=== PATIENT | female | born 1960 | race Caucasian/White ===

== ENCOUNTER 2018-05-17 14:33 | Observation (INO) ==
[2018-05-17] MEDS ORDERED: GLUCAGON FOR INJ 1 MG VIAL SQ PRN (16:22)
[2018-05-17] MEDS ORDERED: HYDROCODONE/ACETAMINOPHEN 10/325 TAB PO PRN (16:22)
[2018-05-17] MEDS ORDERED: CARBOHYDRATES FOR HYPOGLYCEMIA PO PRN (16:22)
[2018-05-17] MEDS ORDERED: DEXTROSE 50% 50 ML SYRINGE IV PRN (16:22)
[2018-05-17] MEDS ORDERED: ONDANSETRON INJ 2 MG/ML 2 ML VIAL IV PRN (16:22)
[2018-05-17] MEDS ORDERED: GLUCOSE 10 TABS/TUBE PO PRN (16:22)
[2018-05-17] MEDS ORDERED: GLUCOSE 40% GEL 15 GM TUBE PO PRN (16:22)
[2018-05-17] MEDS ORDERED: DOCUSATE SODIUM 100 MG CAP PO PRN (16:27)
--- NOTE | 2018-05-17 16:33 | History & Physical Report ---
Date of Service May 17, 2018 Assessment & Plan (1) Intractable pain: Patient with 1.5 weeks of severe dermatomal pain. Ddx to include neuritis, possibly from poorly controlled diabetes or recent trauma, shingles - patient with remote history of the same in this region. Shingles without emergence of a rash is possible, regional pain syndrome following recent trauma. -Observation to medical floor -Obtain basic labs - CBC, BMP, Mg, PO4 -Check MRI of the thoracic spine -Hydrocodone 10mg po q 6 hours PRN -Topical Lidocaine -Will treat with Valtrex 1gm po TID -Lyrica 75mg po BID -Consider pain management consultation if no improvement with the above interventions -PT/OT evaluation Present on Admission?: Yes (2) Diabetes: Patient with history of DM. She presently takes Glipizide. Reports high blood sugars recently -Check AIC -CC diet as tolerated -ISS for now, add basal insulin if poor control (3) Hypertension: Blood pressure mildly elevated at present, 152/94. -Pain control as above -Continue Lisinopril 2.5mg po daily -Continue to monitor Present on Admission?: Yes (4) GERD (gastroesophageal reflux disease): Chronic. Stable -Continue Omeprazole F/E/N - Heplock. Check labs and correct electrolytes if needed. CC diet as tolerated Ppx - Patient low risk for DVT, encourage ambulation Code - Full per discussion with patient Dispo -Observation to medical floor History of Present Illness Chief Complaint: Pain Primary Care Provider: NO PCP Patient is a 58yo female with history of HTN, HLP, DM, COPD presenting with pain on her left side that has been ongoing x 1.5 weeks. Pain is severe, constant, sharp and burning, 10/10, predominantly located on left side from her thoracic spine with dermatomal/bandlike distribution to her anterior abdomen. Pain does not cross the midline. Sometimes migrates to her shoulder as well. Also has "jags" of acute worsening that lasts 1-2 minutes. Pain involves her skin and between her ribs. Does not seem to be pleuritic or positional. Skin is exquisitely tender to palpation. Patient with history of shingles in that area approximately 15 years ago. Has never had recurrence. No neuropathic pain in that region before. She was seen at [facility] on 05/13/18 with complaint of sore skin x 6 days. She was diagnosed with neuritis/neuralgia, thought to be secondary to shingles. She was given a prescription for Valtrex, Prednisone and Percocet. She reports only taking those medications x 2 days as a rash never developed and Percocet did not relieve the pain. She had a CXR and CT of the chest performed during that hospital stay that were unrevealing for etiology of the pain. She took Morphine 600mg x 1 dose with no relief. She also took Hydrocodone/APAP which did provide some relief. There was some concern about possible pleural thickening and lesion on the CT which was considered as etiology for pain. Therefore she was sent to Dr. Ty for further evaluation. Upon review of the imaging and interview with the patient, Dr. Ty did not feel that the pleural lesion was the cause of her pain. She was sent to [facility] for direct admission for additional workup and treatment. Additional history: patient reports that three weeks ago she was cutting small trees on a band saw. A piece of a tree shot back from the saw and impacted her left anterior chest. She reports very little pain from that incident. No bruising or bleeding. Allergies Allergy/AdvReac Type Severity Reaction Status Date / Time Iodinated Contrast- Oral and AdvReac Mild VOMITING Verified 05/05/18 13:25 IV Dye Home Medications Home Medications Medication Instructions Recorded Confirmed Type conjugated estrogens [Premarin] 0.3 mg PO DAILY 05/05/18 05/05/18 History glipizide 10 mg PO DAILY 05/05/18 05/05/18 History lisinopril 2.5 mg PO DAILY 05/05/18 05/05/18 History omeprazole 20 mg PO DAILY 05/05/18 05/05/18 History venlafaxine 37.5 mg PO DAILY 05/05/18 05/05/18 History Past Med/Surg History Medical History Hyperlipidemia Hypertension Diabetes (Chronic) Surgical History H/O shoulder surgery History of arthroplasty of left knee S/P hysterectomy Family History Other Family history non-contributory Social History Preferred Language: Bulgarian Communication Ability: Effective 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 Beliefs That Will Affect Care: None Current Living Situation: Significant Other 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al status: employed 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: [employer] at [employer] Other Information That Helps Us Care for You: No Feels Safe at Home: Yes Safety Concerns: Feels Safe At This Time Smoking Status: Current every day smoker Hx Alcohol Use: No Hx Substance Use: No Review of Systems All systems reviewed & are unremarkable except as noted in HPI & below Patient reports nausea and constipation Patient reports occasional tinnitus and ear fullness Physical Exam Vital Signs (Past 24 Hours): Last Vital Signs Temp 36.7 C 05/17/18 15:30 Pulse 89 05/17/18 15:30 Resp 16 05/17/18 15:30 BP 152/94 H 05/17/18 15:30 Pulse Ox 96 05/17/18 15:30 Physical Exam: General: patient resting, in mild distress secondary to pain, non-toxic in appearance, AA&O x 4 Skin: warm, dry, intact, no rashes or lesions. No redness, warmth, diaphoresis, discoloration HEENT: NC/AT, PERRL, EOMI, anicteric sclera, conjunctiva without injection, external ear normal to inspection and nontender, nares patent, moist mucus membranes, dentition intact, no oropharyngeal lesions, neck supple, trachea midline, no LAD, no thyromegaly, no JVD Heart: +S1/S2, regular, S2 splitting appreciated on respiration, no m/r/g Lungs: equal air entry bilaterally, no rales/rhonchi/wheezes Abd: +BS, soft, NT/ND, no masses/organomegaly/ascites Ext: warm, 2+ pulses in UE/LE bilaterally, no clubbing/cyanosis or edema Neuro: nonfocal, patient AA&O x 4, speech intact, no facial droop, moving all extremities on command with equal strength 5/5, severe pain with palpation of the skin of her left abdomen, flank and thoracic back. 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
[2018-05-17 17:00] LABS: Basophils # (auto) 0.03 K/uL (0-0.2); Basophils % (auto) 0.6 %; Eosinophils # (auto) 0.11 K/uL (0-0.5); Hemoglobin 14.7 g/dL (12.0-16.0); Immature Granulocytes # (auto) 0.02 K/uL (0.00-0.02); Immature Granulocytes % (auto) 0.4 %; Lymphocytes # (auto) 2.06 K/uL (1.2-3.4); Lymphocytes % (auto) 37.8 %; Mean Corpuscular Volume 87.9 fL (80-100); Mean Platelet Volume 10.8 fL (7.4-10.4); Monocytes % (auto) 7.3 %; Neutrophils # (auto) 2.83 K/uL (1.4-6.5); Neutrophils % (auto) 51.9 %; Platelet Count 215 K/uL (130-400); RDW Coefficient of Variation 12.9 % (11.5-14.5); RDW Standard Deviation 41.6 fL (36.4-46.3); Red Blood Count 4.78 M/uL (4.2-5.4); White Blood Count 5.45 K/uL (4.8-10.8)
[2018-05-17] MEDS: HYDROCODONE/ACETAMINOPHEN 10/325 TAB PO PRN (17:23)
[2018-05-17 17:51] LABS: Albumin Level 3.5 gm/dl (3.4-5.0); BUN Creatinine Ratio 19.6 (10-20); Bilirubin,Total 0.2 mg/dl (0.2-1); Calcium 8.6 mg/dl (8.5-10.1); Creatinine Clr Calc Pharmacy 73.2 ml/min; Est GFR (African American) 90.1; Est GFR (Non-African American) 77.8; Potassium 4.1 mmol/L (3.5-5.1); Total Protein 6.8 gm/dl (6.4-8.2)
[2018-05-17] MEDS: LIDOCAINE 5% 1 PATCH TD SCH (18:18)
[2018-05-17] MEDS: INSULIN ASPART 100 UNITS/ML 3 ML PEN SC SCH ×3 (20:03→21:41)
--- NOTE | 2018-05-17 20:09 | Magnetic Resonance Report ---
THORACIC SPINE MRI HISTORY: Left-sided back pain. neuropathic pain TECHNIQUE: Multiplanar multisequence MRI of the thoracic spine was performed without the use of contr ast. COMPARISON: None. FINDINGS: No fracture or subluxation. Paraspinal soft tissues are within normal limits. No abnormal epidural or paraspinal fluid collections. Mild disc space narrowing within the mid to lower thoracic spine with a few scattered tiny focal disc protrusions from the T5-T10 levels. However, no significant central c anal or neural foraminal narrowing. The thoracic spinal cord is normal in course, caliber, and signal intensity. IMPRESSION: 1. Mild degenerative disc disease with a few scattered tiny focal disc protrusions from T5 through T1 0. However, no significant central canal or neural foraminal narrowing. 2. Normal thoracic spinal cord. 3. No fracture or subluxation. Electronically signed by: Angel Martinez M.D. 05/17/2018 8:07 PM
[2018-05-17] MEDS ORDERED: MoRPHine SULFATE 2 MG/ML CARP IV STA (20:46)
[2018-05-17] MEDS: PREGABALIN 75 MG CAP PO SCH (21:15)
[2018-05-17] MEDS: VALACYCLOVIR HCL 500 MG TABLET PO SCH (21:15)
[2018-05-18] MEDS: HYDROCODONE/ACETAMINOPHEN 10/325 TAB PO PRN ×3 (00:09→12:12)
[2018-05-18] MEDS ORDERED: KETOROLAC 30 MG/ML VIAL IV ONE (01:13)
[2018-05-18] MEDS ORDERED: KETOROLAC 30 MG/ML VIAL ONE (01:24)
[2018-05-18] MEDS: VALACYCLOVIR HCL 500 MG TABLET PO SCH ×2 (07:35→09:15)
[2018-05-18] MEDS: LIDOCAINE 5% 1 PATCH TD SCH ×2 (07:35→09:16)
[2018-05-18] MEDS: KETOROLAC 30 MG/ML VIAL IV PRN ×2 (07:39→15:48)
[2018-05-18 07:42] LABS: Estimated Average Glucose 286 mg/dl; Hemoglobin A1C 11.6 % (4.5-5.6)
[2018-05-18] MEDS ORDERED: VENLAFAXINE HCL XR 37.5 MG CAPXR PO SCH (09:00)
[2018-05-18] MEDS ORDERED: ESTROGENS, CONJUGATED 0.3 MG TAB PO SCH (09:00)
[2018-05-18] MEDS ORDERED: LISINOPRIL 2.5 MG TAB PO SCH (09:00)
[2018-05-18] MEDS ORDERED: PANTOprazole 40 MG TAB PO SCH (09:00)
[2018-05-18] MEDS: PREGABALIN 75 MG CAP PO SCH ×2 (09:03→13:03)
[2018-05-18] MEDS: INSULIN ASPART 100 UNITS/ML 3 ML PEN SC SCH (09:07)
[2018-05-18] MEDS ORDERED: GLUCOSE 40% GEL 15 GM TUBE PO PRN (09:28)
[2018-05-18] MEDS ORDERED: DEXTROSE 50% 50 ML SYRINGE IV PRN (09:28)
[2018-05-18] MEDS ORDERED: GLUCAGON FOR INJ 1 MG VIAL SQ PRN (09:28)
[2018-05-18] MEDS ORDERED: GLUCOSE 10 TABS/TUBE PO PRN (09:28)
[2018-05-18] MEDS ORDERED: CARBOHYDRATES FOR HYPOGLYCEMIA PO PRN (09:28)
[2018-05-18] MEDS ORDERED: INSULIN GLARGINE SOLOSTAR 100 UNITS/ML 3 ML PEN SC SCH (09:30)
[2018-05-18] MEDS ORDERED: INSULIN ASPART 100 UNITS/ML 3 ML PEN SC SCH (11:30)
[2018-05-18] MEDS ORDERED: Nursing to Pharmacy Communication ONE (15:26)
--- NOTE | 2018-05-18 17:23 | Discharge Summary ---
Date of Service May 18, 2018 Admission HPI Per Admitting Provider Patient is a 58yo female with history of HTN, HLP, DM, COPD presenting with pain on her left side that has been ongoing x 1.5 weeks. Pain is severe, constant, sharp and burning, 10/10, predominantly located on left side from her thoracic spine with dermatomal/bandlike distribution to her anterior abdomen. Pain does not cross the midline. Sometimes migrates to her shoulder as well. Also has "jags" of acute worsening that lasts 1-2 minutes. Pain involves her skin and between her ribs. Does not seem to be pleuritic or positional. Skin is exquisitely tender to palpation. Patient with history of shingles in that area approximately 15 years ago. Has never had recurrence. No neuropathic pain in that region before. She was seen at [facility] on 05/13/18 with complaint of sore skin x 6 days. She was diagnosed with neuritis/neuralgia, thought to be secondary to shingles. She was given a prescription for Valtrex, Prednisone and Percocet. She reports only taking those medications x 2 days as a rash never developed and Percocet did not relieve the pain. She had a CXR and CT of the chest performed during that hospital stay that were unrevealing for etiology of the pain. She took Morphine x 1 dose with no relief. She also took Hydrocodone/APAP which did provide some relief. There was some concern about possible pleural thickening and lesion on the CT which was considered as e tiology for pain. Therefore she was sent to Dr. Ty for further evaluation. Upon review of the imaging and interview with the patient, Dr. Ty did not feel that the pleural lesion was the cause of her pain. She was sent to [facility] for direct admission for additional workup and treatment. Additional history: patient reports that three weeks ago she was cutting small trees on a band saw. A piece of a tree shot back from the saw and impacted her left anterior chest. She reports very little pain from that incident. No bruising or bleeding. 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 Discharge Exam Constitutional WD/WN, vitals as above Eyes PERRL, conjunctivae normal, anicteric sclerae ENMT external ear and nose normal, oropharynx normal Neck trachea midline, no thyromegaly Respiratory normal respiratory effort, lungs clear to auscultation Cardiovascular RRR, no murmur, no edema Gastrointestinal (Abdomen) normal bowel sounds, soft, nontender, no hepatosplenomegaly Musculoskeletal Spine: thoracic spine normal to inspection (+TTP over left sided rib cage in dermatomal fashion around T8-9) Extremities: extremities normal to inspection; no cyanosis and no clubbing Skin no rashes, warm and dry Neurologic moves all extremities and awake; no focal motor deficits Psychiatric A+Ox3, euthymic affect Discharge Data Allergies Allergy/AdvReac Type Severity Reaction Status Date / Time pregabalin [From Lyrica] Allergy Intermediate Agitated Verified 05/18/18 17:22 Iodinated Contrast- Oral and AdvReac Mild VOMITING Verified 05/05/18 13:25 IV Dye Consultations None Ordered Studies 05/17/18 16:22 MR thoracic spine wo con Routine : THORACIC SPINE MRI HISTORY: Left-sided back pain. neuropathic pain TECHNIQUE: Multiplanar multisequence MRI of the thoracic spine was performed without the use of contrast. COMPARISON: None. FINDINGS: No fracture or subluxation. Paraspinal soft tissues are within normal limits. No abnormal epidural or paraspinal fluid collections. Mild disc space narrowing within the mid to lower thoracic spine with a few scattered tiny focal disc protrusions from the T5-T10 levels. However, no significant central canal or neural foraminal narrowing. The thoracic spinal cord is normal in course, caliber, and signal intensity. IMPRESSION: 1. Mild degenerative disc disease with a few scattered tiny focal disc p rotrusions from T5 through T10. However, no significant central canal or neural foraminal narrowing. 2. Normal thoracic spinal cord. 3. No fracture or subluxation. Hospital Course (1) Intractable pain: Patient with 1.5 weeks of severe dermatomal pain left thoracic. Ddx to include neuritis, possibly from poorly controlled diabetes or recent trauma, shingles - patient with remote history of the same in this region. Shingles without emergence of a rash is possible, regional pain syndrome following recent trauma. Labs all normal. MRI Thoracic Spine without explanation of cause of pain, mild degenerative changes. Nonfocal neuro exam but with tenderness exquisitely in left thoracic dermatomal pattern around T8-9. Pt was treated with IV toradol and hydrocodone with some relief. A trial of Lyrica was attempted and pt described having severe agitation, moodiness, and felt like her "veins were burning." Therefore Lyrica was discontinued. She decribes a similar reaction to gabapentin in the past as well. Pt was stable for discharge on hydrocodone. Recommend she keep her already made appointment with Neuro fo rthis coming Wednesday and obtain possible referral to Pain Management if not improving. -gave Rx for hydrocodone prn -can take ibuprofen prn as well -no Valtrex continued as she is outside of the window of benefit at this point and was quite opposed to taking most medications for fear of side effects (2) Diabetes: Patient with history of DM. She presently takes Glipizide only at home. Severely uncontrolled with HgbA1C here of 11.6% Had severe hyperglycemia here with glucose readings consistently in the 200s- 300s. She refused to take insulin. States she is committed to following a low carb diet after discharge. She also was recently prescribed a GLP-1 agonist (she is unsure which one but described a once weekly injection) by her PCP but has not yet started it--> plans to start as soon as she goes home (3) Hypertension: Blood pressure mildly elevated here, secondary to pain perhaps -Pain control as above -Continue Lisinopril 2.5mg po daily -Continue to monitor (4) GERD (gastroesophageal reflux disease): Chronic. Stable -Continue Omeprazole Dispo-stable for dc to home with close f/u with PCP, Neuro Total Time Total Time Spent Total Time Spent (In Minutes): >30 min Total Time Includes: Examination of the Patient, Discharge Planning and Medication Reconciliation Discharge Plan Discharge Items Patient Disposition: Home - Self-Care Reason For Visit: INTRACTABLE PAIN Discharge Diagnosis: Post-herpetic neuralgia Condition: Fair Discharge Goals: Decrease discomfort and Therapeutic intervention Activity: Resume your previous activity Lifting: Gradually increase as tolerated Bathing: No limitations Exercise/Sports: Gradually increase as tolerated Non-emergency contact: Primary Care Provider Call non-emergency contact if: you have any medication questions, your symptoms worsen, your pain is not controlled, your pain is worsening, your pain is unusua l for you, your pain is concerning for you, you have a fever and your temperature is above 101 Follow-up/Referrals: Peter Angulo DO [Primary Care Provider] - 05/24/18 9:00 am (Please, follow up at Dr. Angulo's office on WednesdayMay 24 at 9:00 am. *If you need to change this appointment, call the office at [phone].) Diet: Carb Consistent or DM2 Addtl Provider Instructions: You were admitted for intractable pain which is likely due to nerve pain either from shingles (rash is not necessarily always present) or nerve damage from your recent injury. You were prescribed pain medicine to take. It is recommended that you keep your appointment with the Neurologist for this Wednesday. You may also want to see a Lacquer Polisher-their contact information is as above. Please start taking your new diabetes medication as prescribed by your doctor as your blood sugars are very high. Prescriptions: New hydrocodone-acetaminophen 5-325 mg tablet 1 tab PO Q4H PRN (Reason: pain) Qty: 20 RF: 0 ibuprofen 200 mg tablet 800 mg PO Q8H PRN (Reason: fever or pain) Qty: 30 RF: 0 hydrocodone-acetaminophen 5-325 mg tablet 2 tab PO Q6 PRN (Reason: pain) Qty: 30 RF: 0 Continued venlafaxine 37.5 mg Capsule,Extended Release 24hr 37.5 mg PO DAILY RF: 0 glipizide 10 mg tablet extended release 24hr 10 mg PO DAILY RF: 0 omeprazole 20 mg capsule,delayed release(DR/EC) 20 mg PO DAILY RF: 0 lisinopril 2.5 mg tablet 2.5 mg PO DAILY RF: 0 Premarin 0.3 mg tablet 0.3 mg PO DAILY RF: 0 Stand-Alone Forms: [facility] Discharge Orders: Discharge Order (Routine); Ordered 05/18/18 Ordered By: Kayy Britt Admission Data Admit Date/Time: 05/17/18 14:45 Attending Provider: Kayy Britt Admit Provider: Cecille Velazquez Primary Care Provider: Peter Angulo Service: Medical Other Interventions: Discharge Summary Assessment (RN) Last Done: 05/18/18 17:32 Pending Studies at Discharge: No DC Date/Time DO NOT enter until pt leaves facility: 05/18/18 18:30
--- NOTE | 2018-05-20 13:21 | Communication Note ---
Date of Service: May 20, 2018 Pt called in and spoke to RN on the 4th floor, stating she ran out of hydrocodone and PCP would not fill meds without seeing her. Not sure why PCP could not see her in the office. I agreed to refill her hydrocodone to bridge her until her follow up appointment with her PCP . #30 of the hydrocodone/APAP 5/325g tabs written
== END 2018-05-18 18:30 | disposition home or self-care (01) ==
LOC: 4E → SUATTDRO 14:45

== ENCOUNTER 2018-06-24 21:26 | Inpatient (IN) ==
[2018-06-24] MEDS ORDERED: SODIUM CHLORIDE 0.9% 1000ML 2,000 ML IV SCH (22:00)
[2018-06-24] MEDS ORDERED: GI COCKTAIL ED USE PO ONE (22:27)
[2018-06-24] MEDS ORDERED: PROCHLORPERAZINE 2 ML IV ONE (22:27)
[2018-06-24] MEDS ORDERED: FAMOTIDINE 20 MG TAB PO ONE (22:27)
[2018-06-24 22:31] LABS: Basophils # (auto) 0.01 K/uL (0-0.2); Basophils % (auto) 0.1 %; Eosinophils # (auto) 0.59 K/uL (0-0.5); Hematocrit (blood only) 45.3 % (37-47); Hemoglobin 16.1 g/dL (12.0-16.0); Immature Granulocytes # (auto) 0.03 K/uL (0.00-0.02); Immature Granulocytes % (auto) 0.3 %; Lymphocytes # (auto) 1.14 K/uL (1.2-3.4); Lymphocytes % (auto) 9.7 %; Mean Corpuscular Hgb Conc 35.5 g/dL (32-36); Mean Corpuscular Volume 86.8 fL (80-100); Mean Platelet Volume 10.9 fL (7.4-10.4); Monocytes # (auto) 0.59 K/uL (0.11-0.59); Neutrophils # (auto) 9.41 K/uL (1.4-6.5); Neutrophils % (auto) 79.9 %; Platelet Count 212 K/uL (130-400); RDW Coefficient of Variation 13.2 % (11.5-14.5); RDW Standard Deviation 42.1 fL (36.4-46.3); Red Blood Count 5.22 M/uL (4.2-5.4); White Blood Count 11.77 K/uL (4.8-10.8)
--- NOTE | 2018-06-24 22:37 | XRay Report ---
SINGLE VIEW CHEST CLINICAL HISTORY: Atypical chest pain. FINDINGS: An AP, portable, upright chest radiograph is compared to study dated 05/05/2018. The cardiom ediastinal silhouette is unremarkable. There is mild bibasilar atelectasis. The lungs and pleural spa selvin are otherwise clear. No pneumothorax is seen. The skeletal structures are osteopenic. The bony th orax is grossly intact. IMPRESSION: No active disease in the chest. Electronically signed by: Thong Veronica M.D. 06/24/2018 10:35 PM
[2018-06-24 22:52] LABS: Alanine Aminotransferase 27 U/L (12-78); Albumin Level 3.7 gm/dl (3.4-5.0); Aspartate Aminotransferase 11 U/L (15-37); BUN Creatinine Ratio 23.7 (10-20); Blood Urea Nitrogen 16 mg/dl (7-18); Carbon Dioxide 21 mmol/L (21-32); Chloride 106 mmol/L (98-107); Creatinine Clr Calc Pharmacy 89.1 ml/min; Est GFR (African American) 111.3; Glucose 230 mg/dl (70-99); Magnesium 1.6 mg/dl (1.8-2.4); Potassium 3.6 mmol/L (3.5-5.1); Sodium 138 mmol/L (136-145)
[2018-06-24 22:57] LABS: Albumin Globulin Ratio 1.2 (0.9-2); Alkaline Phosphatase 76 U/L (45-117); Bilirubin,Total 0.6 mg/dl (0.2-1); Globulin 3.1 gm/dl (2.5-4.0); Phosphorus 3.4 mg/dl (2.5-4.9); Total Protein 6.8 gm/dl (6.4-8.2); Troponin I < 0.015 ng/ml (0-0.045)
[2018-06-24] MEDS ORDERED: IOVERSOL 100ml IV PRN (23:19)
--- NOTE | 2018-06-24 23:42 | CT Scan Report ---
CT SCAN OF THE ABDOMEN AND PELVIS WITH IV CONTRAST CLINICAL HISTORY: Upper abdominal pain. COMPARISON STUDY: Abdominal CT dated 09/27/2014 and 07/13/2011. TECHNIQUE: Following the IV administration of 94 cc of Optiray 320, CT scan of the abdomen and pelvi s is performed from the lung bases to the proximal femora. Images are reviewed in the axial, sagittal , and coronal planes. IV contrast was administered without complication. A dose lowering technique wa s utilized adhering to the principles of ALARA. The examination is modestly degraded by motion artifa ct. CT DOSE: 395.54 mGy.cm FINDINGS: Lung bases: The heart is top normal in size and without pericardial effusion. A 7 mm focus of nodular ity at the left lung base on image #67 is unchanged dating back to 2011 and of doubtful significance. There is bibasilar atelectasis. No airspace consolidation or pleural effusion is identified. Liver: The contrast-enhanced liver is enlarged, measuring 21 cm in length. The liver demonstrates dif fusely diminished attenuation consistent with hepatic steatosis. Fatty sparing is seen adjacent to ga llbladder fossa There is no intrahepatic biliary ductal dilatation. The hepatic veins and portal vein s are patent. Gallbladder: Unremarkable. Spleen: Normal in size and attenuation. Pancreas: There is mild glandular atrophy of the pancreas. Inflammatory stranding is seen between the pancreatic head and the adjacent duodenum. The gland enhances homogeneously. The duct is normal in c aliber. Adrenal glands: Unremarkable. Kidneys: The contrast enhanced kidneys are normal in size and without hydronephrosis. The kidneys enh ance symmetrically. Abdominal vasculature: The abdominal aorta is normal in course and caliber noting moderate atheroscle rotic calcification. The superior mesenteric artery and the celiac artery are patent. Bowel: There are least 2 duodenal diverticula. There is significant duodenal wall thickening with rm rounding inflammation. This is greatest around the third and fourth portions of the duodenum. There i s also wall thickening with significant surrounding inflammatory stranding seen involving loops of pr oximal jejunum in the upper to mid abdomen. There is no high-grade bowel obstruction. The proximal sm all bowel loops are mildly distended measuring up to 3.3 cm. Trace interloop fluid is noted. There is mild colonic diverticulosis without CT evidence of acute diverticulitis. There is no pneumatosis int estinalis or portal venous gas. The appendix is well-visualized and normal. Peritoneum: There is no intraperitoneal free air. A small volume of free fluid is noted in the pelvis . Lymphadenopathy: None. Pelvic viscera: The bladder is normal as visualized. The uterus is surgically absent. No adnexal lesi on is seen. Skeletal structures: The skeletal structures are osteopenic. Mild lumbosacral spondylosis is observed . No lytic or blastic lesions are seen. IMPRESSION: 1. There is significant duodenal wall thickening with surrounding inflammation. Additionally, there i s wall thickening with surrounding inflammation seen involving the majority of the jejunum. The appea cedric is most consistent with a nonspecific duodenitis/enteritis. 2. There is inflammatory stranding seen between the pancreatic head and the duodenum. This is likely related to adjacent duodenitis. Pancreatitis is considered less likely. Correlation with serum amylas e/lipase levels is recommended. 3. There is no pneumatosis intestinalis, portal venous gas, or intraperitoneal free air. 4. Trace interloop fluid is seen around the inflamed small bowel loops, and there is a small volume f ree fluid in the cul-de-sac. This is likely reactive. 5. There is no high-grade bowel obstruction. The proximal small bowel is mildly distended, likely rep resenting ileus. Clinical correlation will be required. 6. Hepatomegaly and hepatic steatosis. 7. Colonic diverticulosis without CT evidence of acute diverticulitis. 8. Additional findings as above. Electronically signed by: Thong Veronica M.D. 06/24/2018 11:39 PM
[2018-06-24] MEDS ORDERED: MAGNESIUM SULFATE / D5W 1 GM/100 ML BAG IV ONE (23:43)
[2018-06-25 00:04] LABS: Appearance Urine Clear (Clear); Bilirubin Urine Negative (Negative); Blood Urine Negative (Negative); Color Urine Yellow; Glucose Urine UA Trace (Negative); Ketones Urine Trace (Negative); Leukocyte Esterase Urine Negative (Negative); Nitrite Urine Negative (Negative); Protein Urine Negative (Negative); Specific Gravity Urine 1.034 (1.000-1.030); Urobilinogen Urine Negative (Negative)
[2018-06-25] MEDS ORDERED: SUCRALFATE 1 GM/10 ML UDC PO STA (00:20)
[2018-06-25] MEDS ORDERED: ONDANSETRON INJ 2 MG/ML 2 ML VIAL IV STA (00:32)
--- NOTE | 2018-06-25 01:05 | Emergency Department Note ---
Entered by Juan Cook acting as a scribe for Mook Regan MD History of Present Illness General Chief complaint: Abdominal Pain Stated complaint: AB PAIN Time Seen by Provider: 06/24/18 21:58 Source: patient History of Present Illness Onset (ago): week(s) (couple) Location: abdomen Pain Consistency: + other (worsening) Maximum Pain Intensity: 5 Relieved By: + none Associated symptoms: + denies other symptoms (bloody vomit), + nausea/vomiting (negative nausea, positive vomiting) and + other (black vomit, diarrhea, and a bad taste in mouth) The patient is a 58 year old F who presents to the Emergency Room with complaints of worsening abdominal pain that started a couple of months ago. She states that a couple of months ago she experienced abdominal trauma. She notes that she was sawing a log which ended up hitting her stomach. She states that she saw her doctor for her pain who told her that she had shingles. She adds that she was put on hydrocodone for her shingles. She notes that last week on she went to urgent care because her symptoms were getting worse. She states that she was told that she had an impaction after an X-ray and was put on Miralax. She notes that she is currently experiencing black vomit, diarrhea, and a bad taste in her mouth. She denies currently having nausea and bloody vomit. She states that she does not have a history of pancreatitis or any abdominal surgeries. She adds that she smokes 5 cigarettes a day. Home Medications Home Medications Medication Instructions Recorded Confirmed Type Premarin 0.3 mg PO DAILY 05/05/18 06/25/18 History glipizide 10 mg PO DAILY 05/05/18 06/25/18 History lisinopril 2.5 mg PO DAILY 05/05/18 06/25/18 History omeprazole 20 mg PO DAILY 05/05/18 06/25/18 History amitriptyline 10 mg PO HS 06/25/18 06/25/18 History ondansetron HCl 4 mg PO Q8 PRN 06/25/18 06/25/18 History semaglutide [Ozempic] 0.25 mg SUBCUT WK 06/25/18 06/25/18 History venlafaxine 75 mg PO DAILY 06/25/18 06/25/18 History Allergies Allergy/AdvReac Type Severity Reaction Status Date / Time pregabalin [From Lyrica] Allergy Intermediate Agitated Verified 06/25/18 01:56 Iodinated Contrast- Oral and AdvReac Mild VOMITING Verified 06/25/18 01:56 IV Dye Past Med/Surg History Medical History Diabetes (Chronic) Hyperlipidemia Hypertension Surgical History H/O shoulder surgery History of arthroplasty of left knee S/P hysterectomy Family History Other Family history non-contributory Social History Preferred Language: Tanzanian Communication Ability: Effective 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: No Beliefs That Will Affect Care: None Current Living Situation: Significant Other 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al status: employed 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 and A total of 10 systems reviewed and were otherwise negative Physical Exam Vital Signs Vital Signs - 24 hr 06/24/18 21:33 06/24/18 22:44 06/24/18 23:51 Temperature 36.7 C Temperature Source Oral Sepsis Recent Fever Within 48 Hours No Sepsis Action Taken by Nursing No Action Required Pulse Rate 115 H Pulse Rate [Right Finger] 96 H 76 Pulse Rhythm [Right Finger] Regular Pulse Strength [Right Finger] Normal Respiratory Rate 20 17 16 Respiratory Effort / Characteristics Non-Labored Spontaneous Non-Labored Spontaneous Non-Labored Respiratory Depth Normal Normal Normal Respiratory Pattern Regular Regular Regular Blood Pressure 130/95 Blood Pressure [Right Arm] 125/78 150/95 H Blood Pressure Mean 106 Blood Pressure Mean [Right Arm] 93 113 Blood Pressure Position Sitting Blood Pressure Position [Right Arm] Lying Pulse Oximetry 96 95 95 Oxygen Delivery Method Room Air Room Air Room Air 06/25/18 01:00 06/25/18 02:00 06/25/18 03:43 Temperature Temperature Source Sepsis Recent Fever Within 48 Hours Sepsis Action Taken by Nursing Pulse Rate 95 H Pulse Rate [Right Finger] 93 H 96 H Pulse Rhythm [Right Finger] Regular Regular Pulse Strength [Right Finger] Normal Normal Respiratory Rate 18 16 18 Respiratory Effort / Characteristics Non-Labored Non-Labored Respiratory Depth Normal Normal Respiratory Pattern Regular Regular Blood Pressure 132/90 Blood Pressure [Right Arm] 161/93 H 137/90 Blood Pressure Mean Blood Pressure Mean [Right Arm] 115 105 Blood Pressure Position Blood Pressure Position [Right Arm] Lying Lying Pulse Oximetry 95 95 95 Oxygen Delivery Method Room Air Room Air Room Air 06/25/18 04:15 Temperature 36.9 C Temperature Source Oral Sepsis Recent Fever Within 48 Hours Sepsis Action Taken by Nursing Pulse Rate Pulse Rate [Right Finger] 97 H Pulse Rhythm [Right Finger] Pulse Strength [Right Finger] Respiratory Rate 16 Respiratory Effort / Characteristics Respiratory Depth Respiratory Pattern Blood Pressure Blood Pressure [Right Arm] 127/86 Blood Pressure Mean Blood Pressure Mean [Right Arm] 99 Blood Pressure Position Blood Pressure Position [Right Arm] Pulse Oximetry 95 Oxygen Delivery Method Room Air GENERAL: Awake, alert, uncomfortable appearing HENT: Normocephalic, atraumatic. TM's normal. Oropharynx with dry mucous membranes and otherwise unremarkable. EYES: PERRL. EOMI. Normal conjunctiva. Sclera non-icteric. NECK: Supple. No nuchal rigidity. FROM. No JVD or bruit. RESPIRATORY: CTA CARDIAC: RRR. No murmur. ABDOMEN: Soft, non distended. Mild epigastric tenderness to palpation.. No rebound or guarding. No masses. RECTAL: Deferred. MUSCULOSKELETAL: Unremarkable. No edema. No discoloration. Gross motor strength symmetric. NEURO: Normal sensorium. No sensory or motor deficits noted. SKIN: No rash or jaundice noted. LYMPH: No adenopathy Course 2211: The patient was evaluated in room C11B. A complete history and physical exam was performed. 2239: I am checking on the patient's allergy. 0020: I am waiting to see how the patient does with Carafate. 0144: I reviewed the patient's case with Dr. Jordy Issa, [facility] Hospitalist. He will evaluate the patient for further management. Consultations Consultation #1: I reviewed the patient's case with Dr. Jordy Issa, [facility] Hospitalist. He will evaluate the patient for further management. Time: 01:44 Administered Medications Sodium Chloride (Nss 1000ml) 1,000 mls @ 125 mls/hr IV .Q8H [place] Stop: 07/25/18 04:12 Last Admin: 06/25/18 04:29 Dose: 125 mls/hr Documented by: [id number] Discontinued Medications Al Hydrox/Mg Hydrox/Simethicone () 1 dose PO ONE ONE Stop: 06/24/18 22:28 Last Admin: 06/24/18 22:39 Dose: 1 dose Documented by: [id number] Famotidine (Pepcid) 20 mg PO NOW ONE Stop: 06/24/18 22:28 Last Admin: 06/24/18 22:39 Dose: 20 mg Documented by: [id number] Sodium Chloride (Nss 1000ml) 2,000 mls @ 999 mls/hr IV .Q2H1M [place] Stop: 06/25/18 00:00 Last Infusion: 06/25/18 01:16 Dose: 0 mls/hr Documented by: [id number] Infusion: 06/25/18 01:16 Dose: 0 mls/hr Documented by: [id number] Admin: 06/24/18 22:37 Dose: 999 mls/hr Documented by: [id number] Prochlorperazine (Compazine) 2 mls @ 1 mls/min IV ONE ONE Stop: 06/24/18 22:28 Last Admin: 06/24/18 22:40 Dose: 1 mls/min Documented by: [id number] Magnesium Sulfate/Dextrose (Magnesium Sulfate / D5w) 1 gm in 100 mls @ 100 mls/hr IV ONE ONE Stop: 06/25/18 00:42 Last Infusion: 06/25/18 01:17 Dose: 0 mls/hr Documented by: [id number] Admin: 06/24/18 23:57 Dose: 100 mls/hr Documented by: [id number] Ioversol (Optiray 320 100ml) 94 ml IV ONCE PRN PRN Reason: Interaction Checking Stop: 06/28/18 23:18 Last Admin: 06/24/18 23:19 Dose: 94 ml Documented by: [id number] Ondansetron HCl (Zofran) 4 mg IV NOW STA Stop: 06/25/18 00:33 Last Admin: 06/25/18 00:53 Dose: 4 mg Documented by: [id number] Medical Decision Making Differential Diagnosis Differential diagnosis includes: appendicitis, diverticulitis, PUD, biliary pathology, UTI, pancreatitis, obstruction, mesenteric ischemia, aortic pathology , infections, inflammatory bowel disease, renal colic, as well as others were entertained. Medical Records Attestation: I reviewed the patient's medical records. Home Medications Current Medication List: was personally reviewed by me Laboratory Data Attestation: I reviewed the patient's lab results. Result diagrams: 06/24/18 22:15 06/24/18 22:15 Lab Results 06/24/18 06/24/18 06/24/18 Range/Units 22:15 22:15 23:40 WBC 11.77 H (4.8-10.8) K/uL RBC 5.22 (4.2-5.4) M/uL Hgb 16.1 H (12.0-16.0) g/dL Hct 45.3 (37-47) % MCV 86.8 (80-100) fL MCH 30.8 (25-34) pg MCHC 35.5 (32-36) g/dL RDW Std Deviation 42.1 (36.4-46.3) fL RDW Coeff of Abbi 13.2 (11.5-14.5) % Plt Count 212 (130-400) K/uL MPV 10.9 H (7.4-10.4) fL Immature Gran % (Auto) 0.3 % Neut % (Auto) 79.9 % Lymph % (Auto) 9.7 % [place] % (Auto) 5.0 % Eos % (Auto) 5.0 % Baso % (Auto) 0.1 % Immature Gran # (Auto) 0.03 H (0.00-0.02) K/uL Neut # (Auto) 9.41 H (1.4-6.5) K/uL Lymph # (Auto) 1.14 L (1.2-3.4) K/uL [place] # (Auto) 0.59 (0.11-0.59) K/uL Eos # (Auto) 0.59 H (0-0.5) K/uL Baso # (Auto) 0.01 (0-0.2) K/uL Sodium 138 (136-145) mmol/L Potassium 3.6 (3.5-5.1) mmol/L Chloride 106 (98-107) mmol/L Carbon Dioxide 21 (21-32) mmol/L Anion Gap 11.0 (3-11) BUN 16 (7-18) mg/dl Creatinine 0.66 (0.6-1.2) mg/dl Est Cr Clr Drug Dosing 89.1 ml/min Est GFR ( Amer) 111.3 Est GFR (Non-Af Amer) 96.0 BUN/Creatinine Ratio 23.7 H (10-20) Glucose 230 H (70-99) mg/dl Calcium 9.0 (8.5-10.1) mg/dl Phosphorus 3.4 (2.5-4.9) mg/dl Magnesium 1.6 L (1.8-2.4) mg/dl Total Bilirubin 0.6 (0.2-1) mg/dl AST 11 L (15-37) U/L ALT 27 (12-78) U/L Alkaline Phosphatase 76 (45-117) U/L Troponin I < 0.015 (0-0.045) ng/ml Total Protein 6.8 (6.4-8.2) gm/dl Albumin 3.7 (3.4-5.0) gm/dl Globulin 3.1 (2.5-4.0) gm/dl Albumin/Globulin Ratio 1.2 (0.9-2) Lipase 70 L (73-393) U/L Urine Color Yellow Urine Appearance Clear (Clear) Urine pH 5.0 (4.5-7.5) Ur Specific [place] 1.034 H (1.000-1.030) Urine Protein Negative (Negative) Urine Glucose (UA) Trace H (Negative) Urine Ketones Trace H (Negative) Urine Blood Negative (Negative) Urine Nitrite Negative (Negative) Urine Bilirubin Negative (Negative) Urine Urobilinogen Negative (Negative) Ur Leukocyte Esterase Negative (Negative) Imaging Data Radiologist's Impression: Radiology results as stated below per my review and the radiologist's interpretation: SINGLE VIEW CHEST CLINICAL HISTORY: Atypical chest pain. FINDINGS: An AP, portable, upright chest radiograph is compared to study dated 05/05/2018. The cardiomediastinal silhouette is unremarkable. There is mild bibasilar atelectasis. The lungs and pleural spaces are otherwise clear. No pneumothorax is seen. The skeletal structures are osteopenic. The bony thorax is grossly intact. IMPRESSION: No active disease in the chest. Electronically signed by: Thong Veronica M.D. 06/24/2018 10:[address] SCAN OF THE ABDOMEN AND PELVIS WITH IV CONTRAST CLINICAL HISTORY: Upper abdominal pain. COMPARISON STUDY: Abdominal CT dated 09/27/2014 and 07/13/2011. TECHNIQUE: Following the IV administration of 94 cc of Optiray 320, CT scan of the abdomen and pelvis is performed from the lung bases to the proximal femora. Images are reviewed in the axial, sagittal, and coronal planes. IV contrast was administered without complication. A dose lowering technique was utilized adhering to the principles of ALARA. The examination is modestly degraded by motion artifact. CT DOSE: 395.54 mGy.cm FINDINGS: Lung bases: The heart is top normal in size and without pericardial effusion. A 7 mm focus of nodularity at the left lung base on image #67 is unchanged dating back to 2011 and of doubtful significance. There is bibasilar atelectasis. No airspace consolidation or pleural effusion is identified. Liver: The contrast-enhanced liver is enlarged, measuring 21 cm in length. The liver demonstrates diffusely diminished attenuation consistent with hepatic steatosis. Fatty sparing is seen adjacent to gallbladder fossa There is no intrahepatic biliary ductal dilatation. The hepatic veins and portal veins are patent. Gallbladder: Unremarkable. Spleen: Normal in size and attenuation. Pancreas: There is mild glandular atrophy of the pancreas. Inflammatory stranding is seen between the pancreatic head and the adjacent duodenum. The gland enhances homogeneously. The duct is normal in caliber. Adrenal glands: Unremarkable. Kidneys: The contrast enhanced kidneys are normal in size and without hydronephrosis. The kidneys enhance symmetrically. Abdominal vasculature: The abdominal aorta is normal in course and caliber noting moderate atherosclerotic calcification. The superior mesenteric artery and the celiac artery are patent. Bowel: There are least 2 duodenal diverticula. There is significant duodenal wall thickening with surrounding inflammation. This is greatest around the third and fourth portions of the duodenum. There is also wall thickening with significant surrounding inflammatory stranding seen involving loops of proximal jejunum in the upper to mid abdomen. There is no high-grade bowel obstruction. The proximal small bowel loops are mildly distended measuring up to 3.3 cm. Trace interloop fluid is noted. There is mild colonic diverticulosis without CT evidence of acute diverticulitis. There is no pneumatosis intestinalis or portal venous gas. The appendix is well-visualized and normal. Peritoneum: There is no intraperitoneal free air. A small volume of free fluid is noted in the pelvis. Lymphadenopathy: None. Pelvic viscera: The bladder is normal as visualized. The uterus is surgically absent. No adnexal lesion is seen. Skeletal structures: The skeletal structures are osteopenic. Mild lumbosacral spondylosis is observed. No lytic or blastic lesions are seen. IMPRESSION: 1. There is significant duodenal wall thickening with surrounding inflammation. Additionally, there is wall thickening with surrounding inflammation seen involving the majority of the jejunum. The appearance is most consistent with a nonspecific duodenitis/enteritis. 2. There is inflammatory stranding seen between the pancreatic head and the duodenum. This is likely related to adjacent duodenitis. Pancreatitis is considered less likely. Correlation with serum amylase/lipase levels is edwige mmended. 3. There is no pneumatosis intestinalis, portal venous gas, or intraperitoneal free air. 4. Trace interloop fluid is seen around the inflamed small bowel loops, and there is a small volume free fluid in the cul-de-sac. This is likely reactive. 5. There is no high-grade bowel obstruction. The proximal small bowel is mildly distended, likely representing ileus. Clinical correlation will be required. 6. Hepatomegaly and hepatic steatosis. 7. Colonic diverticulosis without CT evidence of acute diverticulitis. 8. Additional findings as above. Electronically signed by: Thong Veronica M.D. 06/24/2018 11:39 PM ECG Data Attestation: I personally reviewed and interpreted this ECG as follows: Indication: abdominal pain Rate (beats per minute): 89 Rhythm: normal sinus Findings: + other (normal axis); no acute ischemic change Blood Pressure Blood Pressure Findings: Elevated blood pressure Blood Pressure Disposition: further management by hospitalist RICARDO Duron The patient is a pleasant 58-year-old woman who presents emergency department with worsening upper abdominal pain with nausea and vomiting per HPI. Arrival patient is uncomfortable but no acute distress, afebrile stable vital signs. Patient appears clinically dry. She has mild epigastric tenderness without peritoneal signs. EKG unremarkable without evidence of acute ischemia. CXR negative. WBC 11.7, nonspecific. Hemoglobin 16.1 consistent with the patient's clinically dry appearance. Platelets within normal limits. Glucose 230. Chemistry without acidosis. Magnesium 1.6 with repletion provided. LFTs unremarkable. Lipase 70. Troponin negative. UA without evidence of infection. CT abdomen pelvis demonstrates findings consistent with duodenitis. Patient initially feeling improved after IV fluid hydration, Pepcid, GI cocktail, and compazine. However, subsequently with return of nausea with bilious vomiting. Thus, will admit the patient for continued symptomatic treatment of duodenitis. Case d/w Dr. Issa, who will evaluate the patient for admission. Impression & Plan Duodenitis Discharge Plan Visit Data Chief Complaint: Abdominal Pain Stated Complaint: AB PAIN ED Provider: Mook Regan Discharge Problem: Duodenitis Patient Disposition: Admitted As Inpatient Discharge Instructions Interventions: ED Discharge Assessment Last Done: 06/25/18 03:43 The scribe's documentation has been prepared under my direction and personally reviewed by me in its entirety. I confirm that the note above accurately reflects all work, treatment, procedures, and medical decision making performed by me.
--- NOTE | 2018-06-25 03:00 | History & Physical Report ---
Date of Service June 25, 2018 Assessment & Plan (1) Duodenitis: 58-year-old female with history of hypertension, hyperlipidemia, diabetes and GERD presents with worsening abdominal pain times few weeks associated with vomiting and diarrhea. Diffuse abdominal pain worse over epigastric region. vomiting initially black nonbilious. Diarrhea is loose/watery and yellow without any blood. Report's multiple years of diarrhea without known etiology. Abdominal pain: duodenitis versus enteritis Afebrile, white blood cell count 11.7 (likely somewhat hemoconcentrated) CT abdomen: Significant wall thickening with surrounding inflammation involving duodenum and majority of jejunum concerning for duodenitis vs enteritis, hepatomegaly and hepatic steatosis LFT and lipase within normal limits Received Compazine Pepcid Zofran Carafate and GI cocktail in the ED Started on Protonix 40 mg twice daily, ranitidine 150 twice daily Compazine and Zofran as needed for nausea/vomiting Tramadol as needed for pain IV fluids GI consult Hypertension/hyperlipidemia Continue home lisinopril Diabetes mellitus Hold home glipizide and semaglutide On sliding scale insulin GERD On omeprazole 20 mg daily at home Mood disorder Continue home amitriptyline and venlafaxine History of hysterectomy Patient reports being on Premarin status post hysterectomy Diet n.p.o. for possible procedure Code full DVT prophylaxis SCD only low risk encourage ambulation when able Disposition MedSurg (2) GERD (gastroesophageal reflux disease): (3) Hypertension: (4) Diabetes: (5) HTN (hypertension): History of Present Illness Chief Complaint: Abdominal pain and vomiting Primary Care Provider: Peter Angulo DO 58-year-old female with history of hypertension, hyperlipidemia, diabetes and GERD presents with worsening abdominal pain times few weeks associated with vomiting and diarrhea. Reports about a month and a half ago while sawing log it hit her stomach. Then she was taking hydrocodone and 600 mg of ibuprofen about 3 times a day for 1 to 2 weeks. Then reduced ibuprofen intake to 1-2 times a day. She also reports a bad taste in her mouth. Feels feverish and has chills when she vomits. Currently also has a mild headaches from being hungry. Vomit was initially black this morning with no blood but developed into greenish vomit this evening. Had 4 episodes of vomiting today. Last vomited last week which took her to urgent care. At urgent care she was found to have stool impaction and told to take MiraLAX. Diarrhea is watery and yellow in color without any blood. Of note she reports multiple years of GI issues specifically nonbloody diarrhea for which she has been worked up by Dr. ellis at [facility]. Most recent EGD reported to be about a year ago and reported to be normal. Denies any lightheadedness chest pain shortness of breath constipation dysuria hematuria Past surgical history: Hysterectomy, left TKA and shoulder surgery Social history: Smokes about 5 cigarettes/day, denies alcohol use, distant history of cocaine use about 25 years ago Allergies Allergy/AdvReac Type Severity Reaction Status Date / Time pregabalin [From Lyrica] Allergy Intermediate Agitated Verified 06/25/18 01:56 Iodinated Contrast- Oral and AdvReac Mild VOMITING Verified 06/25/18 01:56 IV Dye Home Medications Home Medications Medication Instructions Recorded Confirmed Type Premarin 0.3 mg PO DAILY 05/05/18 06/25/18 History glipizide 10 mg PO DAILY 05/05/18 06/25/18 History lisinopril 2.5 mg PO DAILY 05/05/18 06/25/18 History omeprazole 20 mg PO DAILY 05/05/18 06/25/18 History amitriptyline 10 mg PO HS 06/25/18 06/25/18 History ondansetron HCl 4 mg PO Q8 PRN 06/25/18 06/25/18 History semaglutide [Ozempic] 0.25 mg SUBCUT WK 06/25/18 06/25/18 History venlafaxine 75 mg PO DAILY 06/25/18 06/25/18 History Past Med/Surg History Medical History Diabetes (Chronic) Hyperlipidemia Hypertension Surgical History H/O shoulder surgery History of arthroplasty of left knee S/P hysterectomy Family History Other Family history non-contributory Social History Preferred Language: Frisian Communication Ability: Effective Devops Developer Required: No Beliefs That Will Affect Care: None Current Living Situation: Significant Other 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al status: employed 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 [employer] Other Information That Helps Us Care for You: No Feels Safe at Home: Yes Safety Concerns: Feels Safe At This Time Smoking Status: Current every day smoker Tobacco Type: cigarettes Cigarettes Per Day: 7 Do You Dip or Chew Tobacco: No Second Hand Exposure: No Tobacco Cessation Education Requested by Patient: No Hx Alcohol Use: No Hx Substance Use: No Review of Systems Review of Systems: As per HPI Physical Exam Physical Exam: General: In NAD, sounds hoarse CV: tachycardic, regular rhythm, no m/r/g PULM: CTAB equal breath sounds bilaterally ABDOMEN: +BS, non-distended, diffusely tender to palpation in all quadrants > over epigastric region, no rebound tenderness, no organomegaly appreciated LE: no calf TTP, no LE edema Results & Data Vital Signs (Past 12 Hours) Vital Signs Temp Pulse Pulse Resp BP BP Pulse Ox 06/25/18 01:00 93 H 18 161/93 H 95 06/24/18 23:51 76 16 150/95 H 95 06/24/18 22:44 96 H 17 125/78 95 06/24/18 21:33 36.7 C 115 H 20 130/95 96 Laboratory Results Abnormal lab results 06/24/18 06/24/18 06/24/18 Range/Units 22:15 22:15 23:40 WBC 11.77 H (4.8-10.8) K/uL Hgb 16.1 H (12.0-16.0) g/dL MPV 10.9 H (7.4-10.4) fL Immature Gran # (Auto) 0.03 H (0.00-0.02) K/uL Neut # (Auto) 9.41 H (1.4-6.5) K/uL Lymph # (Auto) 1.14 L (1.2-3.4) K/uL Eos # (Auto) 0.59 H (0-0.5) K/uL BUN/Creatinine Ratio 23.7 H (10-20) Glucose 230 H (70-99) mg/dl Magnesium 1.6 L (1.8-2.4) mg/dl AST 11 L (15-37) U/L Lipase 70 L (73-393) U/L Ur Specific [place] 1.034 H (1.000-1.030) Urine Glucose (UA) Trace H (Negative) Urine Ketones Trace H (Negative) Diagnostic Findings CT SCAN OF THE ABDOMEN AND PELVIS WITH IV CONTRAST CLINICAL HISTORY: Upper abdominal pain. COMPARISON STUDY: Abdominal CT dated 09/27/2014 and 07/13/2011. TECHNIQUE: Following the IV administration of 94 cc of Optiray 320, CT scan of the abdomen and pelvis is performed from the lung bases to the proximal femora. Images are reviewed in the axial, sagittal, and coronal planes. IV contrast was administered without complication. A dose lowering technique was utilized adhering to the principles of ALARA. The examination is modestly degraded by motion artifact. CT DOSE: 395.54 mGy.cm FINDINGS: Lung bases: The heart is top normal in size and without pericardial effusion. A 7 mm focus of nodularity at the left lung base on image #67 is unchanged dating back to 2011 and of doubtful significance. There is bibasilar atelectasis. No airspace consolidation or pleural effusion is identified. Liver: The contrast-enhanced liver is enlarged, measuring 21 cm in length. The liver demonstrates diffusely diminished attenuation consistent with hepatic steatosis. Fatty sparing is seen adjacent to gallbladder fossa There is no intrahepatic biliary ductal dilatation. The hepatic veins and portal veins are patent. Gallbladder: Unremarkable. Spleen: Normal in size and attenuation. Pancreas: There is mild glandular atrophy of the pancreas. Inflammatory stranding is seen between the pancreatic head and the adjacent duodenum. The gland enhances homogeneously. The duct is normal in caliber. Adrenal glands: Unremarkable. Kidneys: The contrast enhanced kidneys are normal in size and without hydronephrosis. The kidneys enhance symmetrically. Abdominal vasculature: The abdominal aorta is normal in course and caliber noting moderate atherosclerotic calcification. The superior mesenteric artery and the celiac artery are patent. Bowel: There are least 2 duodenal diverticula. There is significant duodenal wall thickening with surrounding inflammation. This is greatest around the third and fourth portions of the duodenum. There is also wall thickening with significant surrounding inflammatory stranding seen involving loops of proximal jejunum in the upper to mid abdomen. There is no high-grade bowel obstruction. The proximal small bowel loops are mildly distended measuring up to 3.3 cm. Trace interloop fluid is noted. There is mild colonic diverticulosis without CT evidence of acute diverticulitis. There is no pneumatosis intestinalis or portal venous gas. The appendix is well-visualized and normal. Peritoneum: There is no intraperitoneal free air. A small volume of free fluid is noted in the pelvis. Lymphadenopathy: None. Pelvic viscera: The bladder is normal as visualized. The uterus is surgically absent. No adnexal lesion is seen. Skeletal structures: The skeletal structures are osteopenic. Mild lumbosacral spondylosis is observed. No lytic or blastic lesions are seen. IMPRESSION: 1. There is significant duodenal wall thickening with surrounding inflammation. Additionally, there is wall thickening with surrounding inflammation seen involving the majority of the jejunum. The appearance is most consistent with a nonspecific duodenitis/enteritis. 2. There is inflammatory stranding seen between the pancreatic head and the duodenum. This is likely related to adjacent duodenitis. Pancreatitis is considered less likely. Correlation with serum amylase/lipase levels is recommended. 3. There is no pneumatosis intestinalis, portal venous gas, or intraperitoneal free air. 4. Trace interloop fluid is seen around the inflamed small bowel loops, and there is a small volume free fluid in the cul-de-sac. This is likely reactive. 5. There is no high-grade bowel obstruction. The proximal small bowel is mildly distended, likely representing ileus. Clinical correlation will be required. 6. Hepatomegaly and hepatic steatosis. 7. Colonic diverticulosis without CT evidence of acute diverticulitis. 8. Additional findings as above. SINGLE VIEW CHEST CLINICAL HISTORY: Atypical chest pain. FINDINGS: An AP, portable, upright chest radiograph is compared to study dated 05/05/2018. The cardiomediastinal silhouette is unremarkable. There is mild bibasilar atelectasis. The lungs and pleural spaces are otherwise clear. No pneumothorax is seen. The skeletal structures are osteopenic. The bony thorax is grossly intact. IMPRESSION: No active disease in the chest. Code Status & VTE Plan Code Status Full VTE Prophylaxis Plan VTE Prophylaxis will be ordered: Yes Supervising Physician Co-Signing Physician Notes Attending addendum: I have physically seen this patient, have supervised the medical residents activities, and agree with the H&P unless as otherwise noted. Assessment and Plan: Duodenitis/enteritis/ileus- N.p.o. except essential medications. Metoprolol 40 mg p.o. daily, ranitidine 150 mg p.o. twice daily. Zofran 4 mg IV every 6 hours as needed. Compazine 10 mg IV every 6 hours as needed. Tramadol 50 mg p.o. every 4 hours as needed moderate pain. IV fluids. Consult gastroenterology. Remainder of orders notations as noted. Resident Activity Tracking Resident Involvement: Resident Care Provided Care Provided: Adult [facility] Medicine (1) Diabetes Diabetes mellitus complication status: without complication Diabetes mellitus nursing home insulin use: without nursing home use Diabetes mellitus type: type 2 Qualified Code(s): E11.9 - Type 2 diabetes mellitus without complications (2) GERD (gastroesophageal reflux disease) Esophagitis presence: esophagitis presence not specified Qualified Code(s): K21.9 - Gastro-esophageal reflux disease without esophagitis (3) Hypertension Hypertension type: essential hypertension Qualified Code(s): I10 - Essential (primary) hypertension
[2018-06-25] MEDS ORDERED: MAGNESIUM SULFATE / D5W 1 GM/100 ML BAG IV ONE (04:13)
[2018-06-25] MEDS ORDERED: ACETAMINOPHEN 325 MG TAB PO PRN (04:13)
[2018-06-25] MEDS ORDERED: PROCHLORPERAZINE 10 MG in SYRINGE 8 ML IV PRN (04:13)
[2018-06-25] MEDS ORDERED: TRAMADOL HCL 50 MG TABLET PO PRN (04:13)
[2018-06-25] MEDS: SODIUM CHLORIDE 0.9% 1000ML 1,000 ML IV SCH ×3 (04:29→21:08)
[2018-06-25] MEDS ORDERED: Nursing to Pharmacy Communication ONE ×2 (04:41→13:05)
[2018-06-25] MEDS ORDERED: GLUCAGON FOR INJ 1 MG VIAL SQ PRN (04:45)
[2018-06-25] MEDS ORDERED: CARBOHYDRATES FOR HYPOGLYCEMIA PO PRN (04:45)
[2018-06-25] MEDS ORDERED: GLUCOSE 10 TABS/TUBE PO PRN (04:45)
[2018-06-25] MEDS ORDERED: GLUCOSE 40% GEL 15 GM TUBE PO PRN (04:45)
[2018-06-25] MEDS ORDERED: DEXTROSE 50% 50 ML SYRINGE IV PRN (04:45)
[2018-06-25] MEDS: PANTOprazole 40 MG TAB PO SCH ×2 (04:46→21:09)
--- NOTE | 2018-06-25 05:14 | Gastrointestinal Consultation ---
Date of Consultation June 25, 2018 Assessment & Plan (1) Duodenitis: check lipase to see if could be secondary to pancreatiis, other etiologies in differential include IBD, infection, ischemia (less likely given normal CO2 and improved symptoms but check lactate for baseline). Continue PPI, avoid NSAIDS. Discussed is still inpt would recommend EGD wednesday. Advance to clears as tolerated. n/v--likely secondary to etiiology causing duodenitits--supportive care coffee ground emesis--PPI and EGD as above diarrhea--chronic ? pancreas insuffiency given pancreas atropy on CT---needs further outpt GI care History of Present Illness Reason for Consultation: dudoenitis Requesting Physician: Dr Das Attending Physician: Jordy Issa MD History of Present Illness cc abd pain, n/v HPI Reviewed this EMR and [facility] EMR and no GI data. She states sees Dr Castillo at [facility] for chronic diarrhea up to 6 stools/day with unknow etiology. States she will get lower abd pain with diarrhea. Sounds like she has had EGD and colo in past with unknown results. She had injury with log to abdomen few weeks ago and on oxycodone and Ibuproben for that. Developed some epi pain, n/v and was told last week by urgent care she was constipated and starte on miralax so now has her baseline diarrhea. She vomited black material 5/3 am then green. No black nor bloody stools. Abd pain at home /10 and currently no abd pain. CT a/p dudoneal diverticula, duodenal and prox jejunal thickening, colon diverticula, pancreas atrophy, hepatomegaly, fatty liver. WBC 11.77, CO2 normal, LFTS normal. CXR neg. She states on chronic PPI for GERD. x IA Allergies Allergy/AdvReac Type Severity Reaction Status Date / Time pregabalin [From Lyrica] Allergy Intermediate Agitated Verified 06/25/18 01:56 Iodinated Contrast- Oral and AdvReac Mild VOMITING Verified 06/25/18 01:56 IV Dye Home Medications Home Medications Medication Instructions Recorded Confirmed Type Premarin 0.3 mg PO DAILY 05/05/18 06/25/18 History glipizide 10 mg PO DAILY 05/05/18 06/25/18 History lisinopril 2.5 mg PO DAILY 05/05/18 06/25/18 History omeprazole 20 mg PO DAILY 05/05/18 06/25/18 History amitriptyline 10 mg PO HS 06/25/18 06/25/18 History ondansetron HCl 4 mg PO Q8 PRN 06/25/18 06/25/18 History semaglutide [Ozempic] 0.25 mg SUBCUT WK 06/25/18 06/25/18 History venlafaxine 75 mg PO DAILY 06/25/18 06/25/18 History Patient History Medical History Diabetes (Chronic) Hyperlipidemia Hypertension Surgical History H/O shoulder surgery History of arthroplasty of left knee S/P hysterectomy Family History Other Family history non-contributory Social History Preferred Language: Luxembourger Communication Ability: Effective Rv Service Technician Required: No Beliefs That Will Affect Care: None Current Living Situation: Significant Other 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al status: employed 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 Other Information That Helps Us Care for You: No Feels Safe at Home: Yes Safety Concerns: Feels Safe At This Time Smoking Status: Current every day smoker Tobacco Type: cigarettes Cigarettes Per Day: 7 Do You Dip or Chew Tobacco: No Second Hand Exposure: No Tobacco Cessation Education Requested by Patient: No Hx Alcohol Use: No Hx Substance Use: No Review of Systems Review of Systems: All systems reviewed & are unremarkable except as noted in HPI & below Physical Exam Constitutional: WD/WN, vitals as above Eyes: PERRL, conjunctivae normal, anicteric sclerae ENMT: external ear and nose normal, oropharynx normal Neck: normal visual inspection and trachea midline Respiratory: normal respiratory effort, lungs clear to auscultation Cardiovascular: RRR, no murmur, no edema Gastrointestinal (Abdomen): Inspection/Auscultation: abdomen normal to inspection pos bs, soft, no guarding nor rebound Skin: normal turgor warm, dry Neurologic: PERRL, EOMI, accommodation nl, no face palsy, no dysarthria Psychiatric: A+Ox3, euthymic affect Results & Data Vital Signs (Past 12 Hours) Vital Signs Temp Pulse Pulse Resp BP BP Pulse Ox 06/25/18 04:15 36.9 C 97 H 16 127/86 95 06/25/18 03:43 95 H 18 132/90 95 06/25/18 02:00 96 H 16 137/90 95 06/25/18 01:00 93 H 18 161/93 H 95 06/24/18 23:51 76 16 150/95 H 95 06/24/18 22:44 96 H 17 125/78 95 06/24/18 21:33 36.7 C 115 H 20 130/95 96
[2018-06-25 05:30] LABS: Eosinophils # (auto) 0.75 K/uL (0-0.5); Eosinophils % (auto) 6.6 %; Hematocrit (blood only) 42.3 % (37-47); Immature Granulocytes # (auto) 0.02 K/uL (0.00-0.02); Immature Granulocytes % (auto) 0.2 %; Lymphocytes # (auto) 1.05 K/uL (1.2-3.4); Lymphocytes % (auto) 9.2 %; Mean Corpuscular Volume 86.7 fL (80-100); Mean Platelet Volume 10.8 fL (7.4-10.4); Monocytes # (auto) 0.32 K/uL (0.11-0.59); Monocytes % (auto) 2.8 %; Neutrophils % (auto) 81.2 %; Platelet Count 210 K/uL (130-400); RDW Coefficient of Variation 13.2 % (11.5-14.5); RDW Standard Deviation 41.9 fL (36.4-46.3); Red Blood Count 4.88 M/uL (4.2-5.4); White Blood Count 11.44 K/uL (4.8-10.8)
[2018-06-25 05:40] LABS: Mean Corpuscular Hgb Conc 35.5 g/dL (32-36)
[2018-06-25 05:42] LABS: Partial Thromboplastin Ratio 0.9; Partial Thromboplastin Time 23.9 Seconds (21.0-31.0); Prothrombin Time 10.2 Seconds (9.0-12.0)
[2018-06-25 05:47] LABS: Albumin Level 3.3 gm/dl (3.4-5.0); BUN Creatinine Ratio 16.9 (10-20); Creatinine Clr Calc Pharmacy 86.1 ml/min; Est GFR (African American) 109.7; Est GFR (Non-African American) 94.6; Potassium 3.6 mmol/L (3.5-5.1)
[2018-06-25 05:50] LABS: Albumin Globulin Ratio 1.1 (0.9-2); Bilirubin,Total 0.6 mg/dl (0.2-1); Globulin 2.9 gm/dl (2.5-4.0); Total Protein 6.2 gm/dl (6.4-8.2)
[2018-06-25] MEDS: INSULIN ASPART 100 UNITS/ML 3 ML PEN SC SCH ×4 (06:09→21:08)
[2018-06-25] MEDS ORDERED: INSULIN ASPART 100 UNITS/ML 3 ML PEN SC SCH (07:30)
[2018-06-25] MEDS: LISINOPRIL 2.5 MG TAB PO SCH (07:47)
[2018-06-25] MEDS: ESTROGENS, CONJUGATED 0.3 MG TAB PO SCH (07:47)
[2018-06-25] MEDS: VENLAFAXINE HCL XR 75 MG CAPXR PO SCH (07:47)
--- NOTE | 2018-06-25 14:09 | Hospitalist Progress Note ---
Date of Service June 25, 2018 Assessment & Plan (1) Duodenitis: Abdominal pain: duodenitis versus enteritis but given patient's description of this occuring for weeks, less likely of viral etiology Afebrile, white blood cell count 11.7 CT abdomen: Significant wall thickening with surrounding inflammation involving duodenum and majority of jejunum concerning for duodenitis vs enteritis, LFT and lipase within normal limits Continue antiemetics, protonix, ranitidine Tramadol as needed for pain IV fluids GI consult - will likely need EGD Wednesday. Can advance to clears as tolerated DVT prophylaxis SCD only low risk encourage ambulation when able Disposition MedSurg (2) HTN (hypertension): continue lisinopril (3) GERD (gastroesophageal reflux disease): protonix bid (4) Diabetes: Diabetes mellitus Not well controlled - last A1c 11.6 Hold home glipizide and semaglutide On sliding scale insulin Diabetic teaching (5) Fatty liver: As seen on CT Per H&P patient does not drink Will need follow up with pcp and lifestyle counseling (6) Depression: Continue home amitriptyline and venlafaxine (7) DVT prophylaxis: no chemoprophylaxis d/t coffee ground emesis SCDs Subjective Ms. Agarwal's main discomfort this morning is hunger. She last vomited at 0400. She has not eaten in 2 days. She reports a large bm in the ED but not since then. No signs of bleeding with emesis or bowels. Review of Systems Review of Systems: All systems reviewed & are unremarkable except as noted in HPI & below Physical Exam Physical Exam: General: no distress Eyes: normal inspection, PERLL Respiratory: chest non tender, clear to auscultation, normal breath sounds, no respiratory distress, no accessory muscle use Cardiac: regular rate and rhythm, no rub or gallop, no murmur, no edema, no jvd GI/: active bowel sounds, no abd pain or tenderness, soft, non distended Extremities: normal range of motion, normal strength, non tender Neuro/Psych: alert and oriented x 3, normal mood and affect Skin: normal color, dry Results & Data Vital Signs (Past 12 Hours) Vital Signs Temp Pulse Pulse Pulse Resp BP BP 06/25/18 11:45 37.1 C 78 18 120/90 06/25/18 07:30 37.0 C 96 H 16 110/90 06/25/18 04:15 36.9 C 97 H 16 127/86 06/25/18 03:43 95 H 18 132/90 Pulse Ox 06/25/18 11:45 94 06/25/18 07:30 91 06/25/18 04:15 95 06/25/18 03:43 95 (1) GERD (gastroesophageal reflux disease) Esophagitis presence: esophagitis presence not specified Qualified Code(s): K21.9 - Gastro-esophageal reflux disease without esophagitis (2) Diabetes Diabetes mellitus type: type 2 Diabetes mellitus buttermaker continuous churn insulin use: without penitentiary use Diabetes mellitus complication status: without complication Qualified Code(s): E11.9 - Type 2 diabetes mellitus without complications
[2018-06-25] MEDS: ACETAMINOPHEN 1,000 MG/100 ML VIAL IV PRN (16:07)
[2018-06-25] MEDS ORDERED: PNEUMOCOCCAL ADMINISTRATION CHARGE ONE (20:00)
[2018-06-25] MEDS ORDERED: PNEUMOCOCCAL POLYSACCHARIDES 25 MCG/0.5 ML VIAL/SYR IM ONE (20:00)
[2018-06-25] MEDS: AMITRIPTYLINE HCL 10 MG TAB PO SCH (21:09)
[2018-06-26] MEDS: ACETAMINOPHEN 1,000 MG/100 ML VIAL IV PRN (04:54)
[2018-06-26] MEDS: SODIUM CHLORIDE 0.9% 1000ML 1,000 ML IV SCH ×3 (04:54→20:25)
[2018-06-26] MEDS: ESTROGENS, CONJUGATED 0.3 MG TAB PO SCH (07:56)
[2018-06-26] MEDS: LISINOPRIL 2.5 MG TAB PO SCH (07:56)
[2018-06-26] MEDS: VENLAFAXINE HCL XR 75 MG CAPXR PO SCH (07:56)
[2018-06-26] MEDS: PANTOprazole 40 MG TAB PO SCH ×2 (07:56→20:49)
[2018-06-26 07:58] LABS: Hematocrit (blood only) 35.7 % (37-47); Hemoglobin 12.6 g/dL (12.0-16.0); Mean Corpuscular Hgb Conc 35.3 g/dL (32-36); Mean Corpuscular Volume 87.9 fL (80-100); Mean Platelet Volume 10.4 fL (7.4-10.4); Platelet Count 173 K/uL (130-400); RDW Coefficient of Variation 13.4 % (11.5-14.5); RDW Standard Deviation 43.8 fL (36.4-46.3); Red Blood Count 4.06 M/uL (4.2-5.4); White Blood Count 10.03 K/uL (4.8-10.8)
[2018-06-26 08:26] LABS: BUN Creatinine Ratio 6.8 (10-20); Calcium 7.7 mg/dl (8.5-10.1); Creatinine Clr Calc Pharmacy 104.2 ml/min; Est GFR (African American) 116.8; Est GFR (Non-African American) 100.8; Potassium 3.4 mmol/L (3.5-5.1)
[2018-06-26] MEDS: INSULIN ASPART 100 UNITS/ML 3 ML PEN SC SCH ×4 (08:56→23:45)
[2018-06-26] MEDS ORDERED: POTASSIUM CHLORIDE / WTR 10 MEQ/100 ML PLCT IV ONE (10:00)
[2018-06-26] MEDS ORDERED: HYDROmorphone INJ 0.5 MG/0.5 ML SYR IV STA (11:47)
[2018-06-26] MEDS ORDERED: HYDROmorphone INJ 0.5 MG/0.5 ML SYR ONE (11:50)
[2018-06-26] MEDS ORDERED: Nursing to Pharmacy Communication ONE (11:53)
[2018-06-26] MEDS ORDERED: INSULIN ASPART 100 UNITS/ML 3 ML PEN SC SCH (12:15)
--- NOTE | 2018-06-26 14:05 | Hospitalist Progress Note ---
Date of Service June 26, 2018 Assessment & Plan (1) Duodenitis: Abdominal pain: duodenitis versus enteritis but given patient's description of this occuring for weeks, less likely of viral etiology Afebrile, white blood cell count wnl today CT abdomen: Significant wall thickening with surrounding inflammation involving duodenum and majority of jejunum concerning for duodenitis vs enteritis, LFT and lipase within normal limits Continue antiemetics, protonix, ranitidine Tramadol as needed for pain, will give one time dose of 0.5 mg dilaudid IV fluids GI consult - will likely need EGD Wednesday. NPO as not tolerating clears Stool cultures, ova and parasite, and Cdiff Hgb did decrease to 12 from 16 on admission but this is likely dilutional as patient appeared dehydrated on admission. Repeat cbc am Will request records from [facility] concerning previous GI workup and scopes (2) HTN (hypertension): continue lisinopril (3) GERD (gastroesophageal reflux disease): protonix bid (4) Diabetes: Diabetes mellitus Not well controlled - last A1c 11.6 Hold home glipizide and semaglutide On sliding scale insulin Diabetic teaching (5) Fatty liver: As seen on CT Per H&P patient does not drink Will need follow up with pcp and lifestyle counseling (6) Depression: Continue home amitriptyline and venlafaxine (7) DVT prophylaxis: no chemoprophylaxis d/t coffee ground emesis on admission SCDs Subjective Ms. Agarwal is in quite a bit of pain and distress today. She is very frustrated that no one has been able to figure out what is wrong with her stomach as she has had this worked up at [facility] in the past. She is having watery diarrhea and vomiting but denies an blood, melena or coffee ground emesis. Review of Systems Review of Systems: All systems reviewed & are unremarkable except as noted in HPI & below Physical Exam Physical Exam: General: no distress Eyes: normal inspection, PERLL Respiratory: chest non tender, clear to auscultation, normal breath sounds, no respiratory distress, no accessory muscle use Cardiac: regular rate and rhythm, no rub or gallop, no murmur, no edema, no jvd GI/: active bowel sounds, abd tender to palpation mostly over upper medial abdomen, soft, non distended Extremities: normal range of motion, normal strength, non tender Neuro/Psych: alert and oriented x 3, normal mood and affect Skin: normal color, dry Results & Data Vital Signs (Past 12 Hours) Vital Signs Temp Pulse Resp BP Pulse Ox 06/26/18 07:07 36.7 C 72 16 135/82 94 (1) GERD (gastroesophageal reflux disease) Esophagitis presence: esophagitis presence not specified Qualified Code(s): K21.9 - Gastro-esophageal reflux disease without esophagitis (2) Diabetes Diabetes mellitus type: type 2 Diabetes mellitus long-term insulin use: without long-term use Diabetes mellitus complication status: without complication Qualified Code(s): E11.9 - Type 2 diabetes mellitus without complications
[2018-06-26] MEDS: ONDANSETRON INJ 2 MG/ML 2 ML VIAL IV PRN (15:53)
--- NOTE | 2018-06-26 16:38 | Gastroenterology Progress Note ---
Date of Service June 26, 2018 Assessment & Plan (1) Duodenitis: NSAIDS high on differential list, doubt pancreatiis with seccondary duodenitis given normal lipase, other etiologies in differential include IBD, infection, ischemia (less likely given normal lactate and resolved WBC). Continu e PPI, avoid NSAIDS. Pt agreeable to EGD tomorrow. Proc and risks explained to patient which include but not limited to med reaction, bleeding, perforation and aspiration. n/v--likely secondary to etiiology causing duodenitits--supportive care coffee ground emesis--PPI and EGD as above diarrhea--chronic ? pancreas insuffiency given pancreas atropy on CT---needs further outpt GI care Semaglutide started around same times as abd injury and NSAID so that could be contributing to issue also. Dr Auguste is assuming GI care tomorrow 06/27 at 0730. Subjective cc f/u abd pain HPI Partner with patient for H and P. Pt states yesterday had watery diarrhea and nausea but no vomiting. Not tolerating clears. She was made NPO today. Still nausea. No vomiting. Has both lower and epigastric abd pain not improved versus admit. She states she also started Semaglutide for DM about the same time as the abdominal injury and this abd pain and n/v process started. Physical Exam Constitutional: WD/WN, vitals as above Respiratory: normal respiratory effort, lungs clear to auscultation Cardiovascular: RRR, no murmur, no edema Gastrointestinal (Abdomen): pos bs, soft, mild epigastric guarding but no rebound Psychiatric: A+Ox3, euthymic affect Results & Data Vital Signs (Past 12 Hours) Vital Signs Temp Pulse Pulse Resp BP Pulse Ox 06/26/18 15:50 37.1 C 74 16 154/86 H 95 06/26/18 07:07 36.7 C 72 16 135/82 94
[2018-06-26] MEDS: AMITRIPTYLINE HCL 10 MG TAB PO SCH (20:49)
[2018-06-26] MEDS: HYDROmorphone INJ 0.5 MG/0.5 ML SYR IV PRN (20:50)
[2018-06-27] MEDS: SODIUM CHLORIDE 0.9% 1000ML 1,000 ML IV SCH ×2 (04:01→11:51)
[2018-06-27] MEDS: INSULIN ASPART 100 UNITS/ML 3 ML PEN SC SCH ×2 (05:50→12:01)
[2018-06-27 07:14] LABS: Hemoglobin 12.5 g/dL (12.0-16.0); Mean Corpuscular Hgb Conc 35.7 g/dL (32-36); Mean Corpuscular Volume 87.3 fL (80-100); Mean Platelet Volume 10.2 fL (7.4-10.4); Platelet Count 178 K/uL (130-400); RDW Coefficient of Variation 13.2 % (11.5-14.5); RDW Standard Deviation 42.3 fL (36.4-46.3); Red Blood Count 4.01 M/uL (4.2-5.4); White Blood Count 10.53 K/uL (4.8-10.8)
[2018-06-27 07:47] LABS: BUN Creatinine Ratio 6.1 (10-20); Calcium 8.2 mg/dl (8.5-10.1); Creatinine Clr Calc Pharmacy 106.1 ml/min; Est GFR (African American) 117.5; Est GFR (Non-African American) 101.3; Potassium 3.4 mmol/L (3.5-5.1)
[2018-06-27] MEDS: ONDANSETRON INJ 2 MG/ML 2 ML VIAL IV PRN (08:26)
[2018-06-27] MEDS: ESTROGENS, CONJUGATED 0.3 MG TAB PO SCH (08:26)
[2018-06-27] MEDS: VENLAFAXINE HCL XR 75 MG CAPXR PO SCH (08:26)
[2018-06-27] MEDS: LISINOPRIL 2.5 MG TAB PO SCH (08:26)
[2018-06-27] MEDS: PANTOprazole 40 MG TAB PO SCH (08:26)
[2018-06-27] MEDS: HYDROmorphone INJ 0.5 MG/0.5 ML SYR IV PRN (09:57)
--- NOTE | 2018-06-27 10:15 | Anesthesiology Consultation ---
Date of Service June 27, 2018 Assessment & Plan (1) Encounter for pre-operative examination: Chart Review Chart Review: Acceptable Risk for Surgery Consults Requested none ASA ASA3 Proposed Anesthesia Anesthesia Type: MAC Risk / Benefits Reviewed With: PT / POA / Parent / Guardian, Accepts Plan and Informed Consent Obtained History Surgery Operation Date: 06/27/18 08:30 Proposed Procedures p Esophagogastroduodenoscopy Dr Molina Auguste Height/Weight Height: 5 ft 4 in Weight: 75.2 kg Allergies Allergy/AdvReac Type Severity Reaction Status Date / Time pregabalin [From Lyrica] Allergy Intermediate Agitated Verified 06/25/18 01:56 Iodinated Contrast- Oral and AdvReac Mild VOMITING Verified 06/25/18 01:56 IV Dye Medications Home Medications Medication Instructions Recorded Confirmed Last Taken Premarin 0.3 mg PO DAILY 05/05/18 06/25/18 Unknown glipizide 10 mg PO DAILY 05/05/18 06/25/18 Unknown lisinopril 2.5 mg PO DAILY 05/05/18 06/25/18 Unknown omeprazole 20 mg PO DAILY 05/05/18 06/25/18 Unknown amitriptyline 10 mg PO HS 06/25/18 06/25/18 Unknown ondansetron HCl 4 mg PO Q8 PRN 06/25/18 06/25/18 Unknown semaglutide [Ozempic] 0.25 mg SUBCUT WK 06/25/18 06/25/18 Unknown venlafaxine 75 mg PO DAILY 06/25/18 06/25/18 Unknown Active Medications Generic Name Dose Route Start Last Admin Trade Name Freq PRN Reason Stop Dose Admin Amitriptyline HCl 10 mg 06/25/18 21:00 06/26/18 20:49 Elavil PO 07/25/18 20:59 10 mg HS MADELEINE Administration Estrogens Conjugated 0.3 mg 06/25/18 09:00 06/27/18 08:26 Premarin PO 07/25/18 08:59 0.3 mg DAILY MADELEINE Administration Hydromorphone HCl 0.5 mg 06/26/18 20:39 06/27/18 09:57 Dilaudid IV 07/10/18 20:38 0.5 mg Q4H PRN Administration Severe Pain Sodium Chloride 1,000 mls @ 125 mls/hr 06/25/18 04:13 06/27/18 11:51 Nss 1000ml IV 07/25/18 04:12 125 mls/hr .Q8H MADELEINE Administration Acetaminophen 1,000 mg in 100 mls @ 400 mls/hr 06/25/18 15:51 06/26/18 05:12 Ofirmev IV 07/25/18 15:50 Infused Q8H PRN Infusion Pain Insulin Aspart 0 units 06/26/18 18:00 06/27/18 12:01 Novolog Flexpen SC 07/26/18 12:14 Not Given Q6 MADELEINE Lisinopril 2.5 mg 06/25/18 09:00 06/27/18 08:26 Zestril PO 07/25/18 08:59 2.5 mg DAILY MADELEINE Administration Ondansetron HCl 4 mg 06/25/18 04:13 06/27/18 08:26 Zofran IV 07/25/18 04:12 4 mg Q6H PRN Administration Nausea Pantoprazole Sodium 40 mg 06/25/18 04:13 06/27/18 08:26 Protonix PO 07/25/18 04:12 40 mg BID MADELEINE Administration Ranitidine HCl 150 mg 06/25/18 09:00 06/27/18 08:26 Zantac PO 07/25/18 08:59 150 mg BID MADELEINE Administration Tramadol HCl 50 mg 06/25/18 04:13 06/26/18 15:17 Ultram PO 07/25/18 04:12 50 mg Q4H PRN Administration Pain Venlafaxine HCl 75 mg 06/25/18 09:00 06/27/18 08:26 Effexor Extended Release PO 07/25/18 08:59 75 mg DAILY MADELEINE Administration NPO Date Last Intake of Fluids: 06/26/18 Time Last Intake of Fluids: 12:00 Date Last Intake of Solids: 06/26/18 Time Last Intake of Solids: 12:00 Past Medical History Medical History Diabetes (Chronic) Hyperlipidemia Hypertension Exercise / Class Metabolic Activity II 4-5 Yardwork/Stairs/Walk up hill Past Family History Family History Other Family history non-contributory Past Surgical History Surgical History H/O shoulder surgery History of arthroplasty of left knee S/P hysterectomy Past Anesthesia History No Hx of Anesthesia Complications and No Family Hx of Anesthesia Complications History of PONV No Hx of PONV and No Hx of Motion Sickness Social History Smoking Status: Current every day smoker tobacco type: cigarettes Smoking cigarettes per day: 7 Do You Dip or Chew Tobacco: No Hx Alcohol Use: No Hx Substance Use: No Physical Exam Vital Signs Last Vital Signs Temp 99.0 F 06/27/18 12:19 Pulse 75 06/27/18 12:19 Resp 20 06/27/18 12:19 BP 141/82 H 06/27/18 12:19 Pulse Ox 94 06/27/18 12:19 ENMT Mouth: no dentition abnormality Thyromental Distance: > or= 3.5 Finger Breadths Mallampati Class: II Neck normal visual inspection Respiratory normal respiratory effort Auscultation: lungs clear to auscultation bilaterally Cardiovascular Rate/Rhythm: regular rate and regular rhythm Testing Electrocardiogram Date: 06/24/18 Findings: + NSR @ (89 bpm) Chest X-Ray Date: 06/24/18 Findings: + NAD Laboratory Results 06/27/18 06:56 06/27/18 06:56 PT 10.2 Seconds (9.0-12.0) 06/25/18 05:20 INR 1.0 (0.9-1.1) 06/25/18 05:20 APTT 23.9 Seconds (21.0-31.0) 06/25/18 05:20 Urine Color Yellow 06/24/18 23:40 Urine Appearance Clear (Clear) 06/24/18 23:40 Urine pH 5.0 (4.5-7.5) 06/24/18 23:40 Ur Specific [place] 1.034 (1.000-1.030) H 06/24/18 23:40 Urine Protein Negative (Negative) 06/24/18 23:40 Urine Glucose (UA) Trace (Negative) H 06/24/18 23:40 Urine Ketones Trace (Negative) H 06/24/18 23:40 Urine Nitrite Negative (Negative) 06/24/18 23:40 Ur Leukocyte Esterase Negative (Negative) 06/24/18 23:40 06/27/18 06/27/18 11:56 05:44 POC Glucose 132 H 152 H
--- NOTE | 2018-06-27 12:34 | History & Physical Report ---
Date of Service June 27, 2018 History of Present Illness Chief Complaint: abd pain, diarrhea Primary Care Provider: Peter Angulo DO For EGD Allergies Allergy/AdvReac Type Severity Reaction Status Date / Time pregabalin [From Lyrica] Allergy Intermediate Agitated Verified 06/27/18 12:34 Iodinated Contrast- Oral and AdvReac Mild VOMITING Verified 06/27/18 12:34 IV Dye Home Medications Home Medications Medication Instructions Recorded Confirmed Type Premarin 0.3 mg PO DAILY 05/05/18 06/25/18 History glipizide 10 mg PO DAILY 05/05/18 06/25/18 History lisinopril 2.5 mg PO DAILY 05/05/18 06/25/18 History omeprazole 20 mg PO DAILY 05/05/18 06/25/18 History amitriptyline 10 mg PO HS 06/25/18 06/25/18 History ondansetron HCl 4 mg PO Q8 PRN 06/25/18 06/25/18 History semaglutide [Ozempic] 0.25 mg SUBCUT WK 06/25/18 06/25/18 History venlafaxine 75 mg PO DAILY 06/25/18 06/25/18 History Past Med/Surg History Medical History Diabetes (Chronic) Hyperlipidemia Hypertension Surgical History H/O shoulder surgery History of arthroplasty of left knee S/P hysterectomy Family History Other Family history non-contributory Social History Preferred Language: Hungarian Communication Ability: Effective Call Worker Required: No Beliefs That Will Affect Care: None Current Living Situation: Significant Other 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al status: employed 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 [employer] Other Information That Helps Us Care for You: No Feels Safe at Home: Yes Safety Concerns: Feels Safe At This Time Smoking Status: Current every day smoker Tobacco Type: cigarettes Cigarettes Per Day: 7 Do You Dip or Chew Tobacco: No Second Hand Exposure: No Tobacco Cessation Education Requested by Patient: No Hx Alcohol Use: No Hx Substance Use: No Physical Exam Vital Signs (Past 24 Hours): Last Vital Signs Temp 37.2 C 06/27/18 12:19 Pulse 75 06/27/18 12:19 Resp 20 06/27/18 12:19 BP 141/82 H 06/27/18 12:19 Pulse Ox 94 06/27/18 12:19 Constitutional: well developed tattoos Respiratory: normal respiratory effort Cardiovascular: Rate/Rhythm: regular rate and regular rhythm Gastrointestinal (Abdomen): Percussion/Palpation: + abdomen tender Code Status & VTE Plan VTE Prophylaxis Plan VTE Prophylaxis will be ordered: Yes
[2018-06-27] MEDS ORDERED: LIDOCAINE HCL 2% 2 ML VIAL/AMP(20MG/ML) INFIL ONE (12:45)
[2018-06-27] MEDS ORDERED: SODIUM CHLORIDE 0.9% 1000ML 1,000 ML IV SCH (12:45)
[2018-06-27] MEDS ORDERED: PROPOFOL IV EMULSION 10 MG/ML 20 ML VIAL IV ONE (12:45)
--- NOTE | 2018-06-27 13:05 | GI REPORT ---
Patient Name: Lashawn Agarwal Procedure Date: 06/27/2018 12:41 PM Date of : 1960 Admit Type: Inpatient Age: 58 Gender: Female Attending MD: Scot Auguste MD Procedure: Upper GI endoscopy Providers: Scot Auguste MD Referring MD: Kayy Britt Md Indications: Epigastric abdominal pain, Diarrhea, Nausea with vomiting, Weight loss Medicines: Propofol total dose 200 mg IV, Lidocaine 40 mg IV Complications: No immediate complications. Estimated Blood Loss: Estimated blood loss was minimal. Procedure: Pre-Anesthesia Assessment: - Prior to the procedure, a History and Physical was performed, and patient medications, allergies and sensitivities were reviewed. The patient's tolerance of previous anesthesia was reviewed. - The risks and benefits of the procedure and the sedation options and risks were discussed with the patient. All questions were answered and informed consent was obtained. After obtaining informed consent, the endoscope was passed under direct vision. Throughout the procedure, the patient's blood pressure, pulse, and oxygen saturations were monitored continuously. The scope was introduced through the mouth, and advanced to the third part of duodenum. The upper GI endoscopy was accomplished without difficulty. The patient tolerated the procedure well. Findings: The Z-line was regular and was found 38 cm from the incisors. The examined esophagus was normal. The entire examined stomach was normal. The third portion of the duodenum and examined duodenum were normal. Biopsies were taken with a cold forceps for histology. A medium non-bleeding diverticulum was found in the second portion of the duodenum. Impression: - Z-line regular, 38 cm from the incisors. - Normal esophagus. - Normal stomach. - Normal third portion of the duodenum and examined duodenum. Biopsied. - Non-bleeding duodenal diverticulum. Recommendation: - [facility]. Scot Auguste M.D. Scot Auguste MD 06/27/2018 1:05:13 PM This report has been signed electronically. Note Initiated On: 06/27/2018 12:41 PM Number of Addenda: 0 I attest to the content of the Intraoperative Record and orders documented therein, exceptions below {[id number]}
--- NOTE | 2018-06-27 13:18 | Progress Note ---
DATE: 06/27/2018 The patient was admitted with abdominal pain, vomiting, diarrhea and weight loss. CT suggested some thickening in the third portion of the duodenum. Her pancreatic enzymes and liver enzymes are normal. She underwent an EGD today down into the third portion of the duodenum. The esophagus, stomach and duodenum were normal except for an incidental duodenal diverticulum. Biopsies of small bowel were obtained to rule out celiac and Giardia. IMPRESSION: The patient has the above symptoms of unclear etiology. I plan on getting an MR enterography to further evaluate the small intestine as the only thing that has turned up abnormal on scan.
--- NOTE | 2018-06-27 13:33 | Anesthesiology Progress Note ---
Date of Service June 27, 2018 Anesthesia Post Procedure Vital Signs Vital Signs: Temp Pulse Pulse Resp BP Pulse Ox 06/27/18 13:32 82 18 166/90 H 95 06/27/18 13:17 86 18 151/97 H 95 06/27/18 13:02 78 16 146/87 H 93 06/27/18 12:19 37.2 C 75 75 20 141/82 H 94 06/27/18 07:03 37.1 C 78 18 143/86 H 94 06/27/18 00:00 37 C 76 18 153/85 H 93 06/26/18 15:50 37.1 C 74 16 154/86 H 95 Pain Intensity Medial Abdomen: Pain Intensity: 5 Head: Pain Intensity: 2 Transfer of Care Handoff Completed per policy Notes Mental Status: alert / awake / arousable Patient Amnestic to Procedure: Yes Nausea / Vomiting: adequately controlled Pain: adequately controlled Airway Patency, RR, SpO2: stable & adequate BP & HR: stable & adequate Hydration State: stable & adequate Anesthetic Complications: no major complications apparent
--- NOTE | 2018-06-27 17:30 | Discharge Summary ---
Date of Service June 27, 2018 Admission HPI Per Admitting Provider 58-year-old female with history of hypertension, hyperlipidemia, diabetes and GERD presents with worsening abdominal pain times few weeks associated with vomiting and diarrhea. Reports about a month and a half ago while sawing log it hit her stomach. Then she was taking hydrocodone and 600 mg of ibuprofen about 3 times a day for 1 to 2 weeks. Then reduced ibuprofen intake to 1-2 times a day. She also reports a bad taste in her mouth. Feels feverish and has chills when she vomits. Currently also has a mild headaches from being hungry. Vomit was initially black this morning with no blood but developed into greenish vomit this evening. Had 4 episodes of vomiting today. Last vomited last week which took her to urgent care. At urgent care she was found to have stool impaction and told to take MiraLAX. Diarrhea is watery and yellow in color without any blood. Of note she reports multiple years of GI issues specifically nonbloody diarrhea for which she has been worked up by Dr. ellis at [facility]. Most recent EGD reported to be about a year ago and reported to be normal. Principal Diagnosis Duodenitis, Unspecific Etiology Discharge Exam Full physical exam deferred due to agitation and demanding discharge; did allow auscultation of bowel sounds which are slightly hyperactive; C/O of back spasms but not palpable tenderness or muscle contracture during my assessment Discharge Data Allergies Allergy/AdvReac Type Severity Reaction Status Date / Time pregabalin [From Lyrica] Allergy Intermediate Agitated Verified 06/28/18 09:59 Iodinated Contrast- Oral and AdvReac Mild VOMITING Verified 06/28/18 09:59 IV Dye Consultations 06/25/18 00:59 ED Decision to Admit Stat 06/25/18 04:36 Consult Gastroenterology Routine Procedures Performed Operation Date: 06/27/18 08:30 Actual Procedures p EGD Biopsy Cytology - Scot Auguste Ordered Studies CT SCAN OF THE ABDOMEN AND PELVIS WITH IV CONTRAST FINDINGS: Lung bases: The heart is top normal in size and without pericardial effusion. A 7 mm focus of nodularity at the left lung base on image #67 is unchanged dating back to 2011 and of doubtful significance. There is bibasilar atelectasis. No airspace consolidation or pleural effusion is identified. Liver: The contrast-enhanced liver is enlarged, measuring 21 cm in length. The liver demonstrates diffusely diminished attenuation consistent with hepatic steatosis. Fatty sparing is seen adjacent to gallbladder fossa There is no intrahepatic biliary ductal dilatation. The hepatic veins and portal veins are patent. Gallbladder: Unremarkable. Spleen: Normal in size and attenuation. Pancreas: There is mild glandular atrophy of the pancreas. Inflammatory stranding is seen between the pancreatic head and the adjacent duodenum. The gland enhances homogeneously. The duct is normal in caliber. Adrenal glands: Unremarkable. Kidneys: The contrast enhanced kidneys are normal in size and without hydronephrosis. The kidneys enhance symmetrically. Abdominal vasculature: The abdominal aorta is normal in course and caliber noting moderate atherosclerotic calcification. The superior mesenteric artery and the celiac artery are patent. Bowel: There are least 2 duodenal diverticula. There is significant duodenal wall thickening with surrounding inflammation. This is greatest around the third and fourth portions of the duodenum. There is also wall thickening with significant surrounding inflammatory stranding seen involving loops of proximal jejunum in the upper to mid abdomen. There is no high-grade bowel obstruction. The proximal small bowel loops are mildly distended measuring up to 3.3 cm. Trace interloop fluid is noted. There is mild colonic diverticulosis without CT evidence of acute diverticulitis. There is no pneumatosis intestinalis or portal venous gas. The appendix is well-visualized and normal. Peritoneum: There is no intraperitoneal free air. A small volume of free fluid is noted in the pelvis. Lymphadenopathy: None. Pelvic viscera: The bladder is normal as visualized. The uterus is surgically absent. No adnexal lesion is seen. Skeletal structures: The skeletal structures are osteopenic. Mild lumbosacral spondylosis is observed. No lytic or blastic lesions are seen. IMPRESSION: 1. There is significant duodenal wall thickening with surrounding inflammation. Additionally, there is wall thickening with surrounding inflammation seen involving the majority of the jejunum. The appearance is most consistent with a nonspecific duodenitis/enteritis. 2. There is inflammatory stranding seen between the pancreatic head and the duodenum. This is likely related to adjacent duodenitis. Pancreatitis is considered less likely. Correlation with serum amylase/lipase levels is recommended. 3. There is no pneumatosis intestinalis, portal venous gas, or intraperitoneal free air. 4. Trace interloop fluid is seen around the inflamed small bowel loops, and there is a small volume free fluid in the cul-de-sac. This is likely reactive. 5. There is no high-grade bowel obstruction. The proximal small bowel is mildly distended, likely representing ileus. Clinical correlation will be required. 6. Hepatomegaly and hepatic steatosis. 7. Colonic diverticulosis without CT evidence of acute diverticulitis. 8. Additional findings as above. Hospital Course (1) Duodenitis: - CT with significant duodenal wall thickening with surround inflammation however this is of unknown etiology and has occurred multiple times - this flair has been an ongoing issue for approx. 5 months - associated with weight loss, diarrhea, and diffuse abdominal pain - Differential could be from NSAIDs, infection (unlikely given frequency), ischemia (CT suggested patent vessels and normal lactate), IBD, Medication- induced -- Rare but possible angioedema from ACEI? - LFTs and Lipase are WNL - Possibility of symptoms related to pancreatic insufficiency given atrophy - could consider supplemental enzymes - She was evaluated by [facility] however records were requested and not available at time of patient leaving AMA Patient verbalizes significant frustration and is very emotional about how these symptoms have largely and negatively impacted her life. She is frustrated by not having an answer to the symptoms and states that everyone thinks it is all in her head. Unfortunately at this time an etiology is not determined. She is tired of medications to just cover the symptoms and tired of further testing which is understandable. However, further tests that have not been performed were offered however she refused to stay hospitalized. Did discuss stopping her Lisinopril as a trial for possible intestinal angioedema (rare but worth a try), refused an alternative blood pressure medication. She does seem to have mistrust for modern medicine. She wants off Effexor so advised her to cut her current dose in half and take this everyday for one week then take that half dose every other day for another week and stop this medication. Did not advise her to stop her oral anti- diabetics but she insists she will do this. She expresses that the [place] medical model is making diabetes worse and that insulin therapy only induces further worsening of the pancreas and fatty liver. Given her uncontrolled DM a gastric emptying study should be obtained for gastroparesis as possible cause of her symptoms. Better glucose control could essentially help with her symptoms. Possibly removing Effexor could help however for the brief interaction I had with her she would benefit from psychiatric intervention/therapy. 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 Does endorse a good support system with her significant other Arcelia. A capsule study is another option however patient states this was addressed and not approved by insurance. An EGD did not reveal significant findings and biopsy is pending. An MR Enterography was offered but could not be completed today and therefore patient would not stay to have this completed. Patient was expressing significant emotional distress during this admission and was specifically asked if she had any thoughts of suicide or wanting to harm herself and she directly replied that she did not have these intentions. Given her emotional state it is possible stress and some psychiatric component could be playing a role in her presenting symptoms. She is not drug seeking. Her significant other did arrive to the hospital and with patient permission we did discuss the case with her and recommendations to possibly see a specialist through a tertiary care system and the recommendations as discussed above. Discussed with Arcelia that a low fiber diet initially would be the best course of action and that if pain is worsening to be checked by a doctor. Patient's significant other did express understanding. Due to the pain the patient was expressing and the inability to eat we did explain that she would be leaving against medical advice however at the time of interaction she is hemodynamically stable, however her underlying etiology has yet to be determined. Did present her with the AMA paperwork however she refused to sign this. She apologized and stated she is just frustrated and would like to be at home. She left with her significant other. Even though exhibiting emotional distress/frustration she is alert and oriented and very aware of the risks or leaving against medical advice. She is competent in her current state to refuse further treatment. (2) GERD (gastroesophageal reflux disease): - Can continue home Omeprazole (3) Hypertension: (4) Diabetes: - T2DM - has had intolerances to other oral anti-diabetics - Uncontrolled with A1c 11.6 - Patient reports she is going to stop all diabetic medications and adjust her diet. Did express to discuss this with her doctor however is adamant she will do this Total Time Total Time Spent Total Time Spent (In Minutes): Greater than 30 minutes Discharge Plan Discharge Items Patient Disposition: Against Medical Advice Diet: Carb Consistent or DM2 Admission Data Admit Date/Time: 06/25/18 02:50 Service: Medical Other DC Date/Time DO NOT enter until pt leaves facility: 06/27/18 15:01 Supervising Physician Co-Signing Physician Notes PA Supervision Note: I personally saw and examined the patient along with MASSIEL Ma; I verified all viramontes points and agree with MASSIEL Ma with the following exceptions and/or additions: Pt agitated and screaming at MASSIEL Ma and I that she was going to leave the hospital today no matter what. She then started to have intermittent lower back spasms and would communications scientist her lower back and scream out loud. That would resolve within 10 seconds and then she was pacing the room again. Given her ongoing severe abdominal pain and finding son CT, we highly recommended she stay and complete her workup with MR enterography as GI recommended. She refused and left AMA
== END 2018-06-27 15:01 | disposition left against medical advice (07) | DRG 392 ==
LOC: ED 21:26 → SUATTDRO 06-25 02:50 → 3W 06-25 02:50
DX: Z79.84 Long term (current) use of oral hypoglycemic drugs; E78.5 Hyperlipidemia, unspecified; Z79.899 Other long term (current) drug therapy; K29.80 Duodenitis without bleeding; F17.210 Nicotine dependence, cigarettes, uncomplicated; K21.9 Gastro-esophageal reflux disease without esophagitis; F39 Unspecified mood [affective] disorder; E11.9 Type 2 diabetes mellitus without complications; I10 Essential (primary) hypertension; K86.89 Other specified diseases of pancreas

== ENCOUNTER 2018-06-28 09:11 | Inpatient (IN) ==
[2018-06-28] MEDS ORDERED: KETOROLAC TROMETHAMINE 15 MG/ML VIAL IV ONE (10:43)
[2018-06-28] MEDS ORDERED: SODIUM CHLORIDE 0.9% 1000ML 1,000 ML IV ONE (10:43)
[2018-06-28] MEDS ORDERED: DiphenhydrAMINE HCL 50 MG/ML VIAL IV STA (10:43)
--- NOTE | 2018-06-28 11:11 | XRay Report ---
SINGLE VIEW CHEST CLINICAL HISTORY: Atypical chest pain. FINDINGS: An AP, portable, upright chest radiograph is compared to study dated 06/24/2018. The heart is top normal for projection. The mediastinal contour is within normal limits. There is mild elevation of the right hemidiaphragm and bibasilar atelectasis. No airspace consolidation or large pleural effu darío is identified. No pneumothorax is seen. The bony thorax is grossly intact. IMPRESSION: No active disease in the chest. Electronically signed by: Thong Veronica M.D. 06/28/2018 11:10 AM
[2018-06-28] MEDS ORDERED: ASPIRIN CHEW 324 MG PO STA (11:21)
[2018-06-28] MEDS ORDERED: ONDANSETRON INJ 2 MG/ML 2 ML VIAL IV STA ×2 (11:21→12:33)
[2018-06-28 11:22] LABS: Basophils # (auto) 0.02 K/uL (0-0.2); Basophils % (auto) 0.2 %; Eosinophils # (auto) 1.62 K/uL (0-0.5); Eosinophils % (auto) 16.6 %; Hemoglobin 13.3 g/dL (12.0-16.0); Immature Granulocytes # (auto) 0.04 K/uL (0.00-0.02); Immature Granulocytes % (auto) 0.4 %; Lymphocytes # (auto) 1.74 K/uL (1.2-3.4); Lymphocytes % (auto) 17.9 %; Mean Corpuscular Hgb Conc 35.9 g/dL (32-36); Mean Corpuscular Volume 86.4 fL (80-100); Mean Platelet Volume 10.1 fL (7.4-10.4); Monocytes # (auto) 0.73 K/uL (0.11-0.59); Monocytes % (auto) 7.5 %; Neutrophils # (auto) 5.59 K/uL (1.4-6.5); Neutrophils % (auto) 57.4 %; Platelet Count 196 K/uL (130-400); RDW Coefficient of Variation 13.1 % (11.5-14.5); RDW Standard Deviation 41.7 fL (36.4-46.3); Red Blood Count 4.28 M/uL (4.2-5.4); White Blood Count 9.74 K/uL (4.8-10.8)
[2018-06-28 11:40] LABS: Alanine Aminotransferase 18 U/L (12-78); Albumin Level 3.4 gm/dl (3.4-5.0); Aspartate Aminotransferase 9 U/L (15-37); Blood Urea Nitrogen 6 mg/dl (7-18); Carbon Dioxide 27 mmol/L (21-32); Chloride 105 mmol/L (98-107); Est GFR (African American) 116.1; Est GFR (Non-African American) 100.2; Glucose 138 mg/dl (70-99); Potassium 3.3 mmol/L (3.5-5.1); Sodium 139 mmol/L (136-145)
[2018-06-28 11:42] LABS: Albumin Globulin Ratio 0.9 (0.9-2); Alkaline Phosphatase 82 U/L (45-117); Bilirubin,Total 0.8 mg/dl (0.2-1); Creatine Kinase 36 U/L (26-192); Globulin 3.7 gm/dl (2.5-4.0); Total Protein 7.1 gm/dl (6.4-8.2)
[2018-06-28 12:19] LABS: Partial Thromboplastin Ratio 1.1; Partial Thromboplastin Time 28.7 Seconds (21.0-31.0); Prothrombin Time 10.6 Seconds (9.0-12.0)
[2018-06-28 12:21] LABS: D Dimer 530 ug/L FEU (0-500)
[2018-06-28 12:28] LABS: Appearance Urine Clear (Clear); Bilirubin Urine Negative (Negative); Blood Urine Negative (Negative); Color Urine Yellow; Glucose Urine UA Negative (Negative); Ketones Urine 2+ (Negative); Leukocyte Esterase Urine Negative (Negative); Nitrite Urine Negative (Negative); Protein Urine Negative (Negative); Specific Gravity Urine 1.015 (1.000-1.030); Urobilinogen Urine Negative (Negative)
[2018-06-28] MEDS ORDERED: OPTIRAY 320 125ml IV PRN (12:56)
--- NOTE | 2018-06-28 13:10 | CT Scan Report ---
CT ANGIOGRAM OF THE CHEST CLINICAL HISTORY: Dyspnea. Atypical chest pain. COMPARISON STUDY: Chest x-ray dated 06/28/2018. TECHNIQUE: Following the IV administration of 120 cc of Optiray 320, CT angiogram of the chest was pe rformed from the upper abdomen to the thoracic inlet utilizing the pulmonary embolus protocol. Images are reviewed in the axial, sagittal, and coronal planes. 3-D MIPS images are created and assessed. I V contrast was administered without complication. A dose lowering technique was utilized adhering to the principles of ALARA. CT DOSE: 262.84 mGy.cm FINDINGS: Thyroid: Imaged portions of the thyroid gland are normal in size and attenuation. Thoracic aorta: There is mild atherosclerotic calcification of the thoracic aorta, which is normal in caliber and demonstrates standard 3-vessel arch anatomy. No dissection is seen. Pulmonary vasculature: The pulmonary trunk is dilated, measuring 3.7 cm in diameter. This suggests pu lmonary artery hypertension. There are no filling defects identified in main, lobar, or segmental pul monary branches to suggest pulmonary embolus. Heart: The heart is top normal in size and without pericardial effusion. There are coronary artery ca lcifications. Lungs and pleural spaces: There are trace pleural effusions with bibasilar atelectasis. There is no a irspace consolidation typical for pneumonia. The trachea and central airways are clear. Mediastinum: There is no mediastinal lymphadenopathy. Aretha: Clear. Axillae: There is no axillary lymphadenopathy. Upper abdomen: The liver is enlarged and steatotic. Partially visualized upper abdominal viscera is o therwise within normal limits. Skeletal structures: No lytic or blastic bony lesions are seen. IMPRESSION: 1. There is no evidence of pulmonary embolus in the main, lobar, or segmental pulmonary arteries. 2. There are trace pleural effusions. 3. No airspace consolidation is identified typical for pneumonia. 4. Dilatation of the pulmonary trunk suggests pulmonary artery hypertension. 5. Additional findings as above. Electronically signed by: Thong Veronica M.D. 06/28/2018 1:09 PM
--- NOTE | 2018-06-28 17:37 | Emergency Department Note ---
Entered by Lilibeth Rajan acting as a scribe for Ishan Bermudez DO History of Present Illness General Chief complaint: Shortness of Breath/Dyspnea Stated complaint: SOB Source: patient History of Present Illness Onset (ago): day(s) 4 Location: abdomen Severity: severe Pain Consistency: + other (persistent) Maximum Pain Intensity: 9 Exacerbated By: + eating Associated symptoms: + denies other symptoms (jaw pain, neck pain, arm pain, numbness, weakness), + chest pain (pressure), + nausea/vomiting, + shortness of breath and + other (back pain, diffuse body aches, difficulty urinating) The patient is a 58 year old female that is presenting to the Emergency Room with complaints of persistent severe stomach pain that started 4 days ago. The patient reports that she has diarrhea immediately after eating or drinking anything. She states that she has not been able to eat or drink in 4 days. She notes that she is fatigued and has diffuse pain. She reports that she is experiencing chest pressure and shortness of breath that started yesterday after receiving an endoscopy. She notes that the chest pressure radiates into her bilateral shoulders. She denies any jaw, neck, or arm pain. She notes that she feels swollen and black and blue internally. She states that she has lower back pain that does not radiate into her legs. She denies any falls, trauma, or numbness/weakness. She reports that she has 22 lbs since her symptoms started. She reports that narcotics worsen her symptoms and that she quit all her normal medications this morning. She reports that she is experiencing pain with urination but denies any burning. She states that she is having difficulty voiding her bladder and has to stand to do so. The patient reports that she was admitted to the hospital 4 days ago and was discharged yesterday following her endoscopy, which the patient states was negative for anything acute processes. She notes that the chest pressure and shortness of breath are of new onset since being discharged. She notes that she is feeling very angry about her symptoms and a lack of progress in her diagnosis. The patient notes that she called the charge nurse because she could not keep down any broth and that she was told to return to the Emergency Room. She denies any past history of heart disease but notes that she has a history of diabetes. She notes that she still has her gall bladder and appendix. Home Medications Home Medications Medication Instructions Recorded Confirmed Type Premarin 0.3 mg PO DAILY 05/05/18 06/25/18 History glipizide 10 mg PO DAILY 05/05/18 06/25/18 History lisinopril 2.5 mg PO DAILY 05/05/18 06/25/18 History omeprazole 20 mg PO DAILY 05/05/18 06/25/18 History amitriptyline 10 mg PO HS 06/25/18 06/25/18 History ondansetron HCl 4 mg PO Q8 PRN 06/25/18 06/25/18 History semaglutide [Ozempic] 0.25 mg SUBCUT WK 06/25/18 06/25/18 History venlafaxine 75 mg PO DAILY 06/25/18 06/28/18 History Allergies Allergy/AdvReac Type Severity Reaction Status Date / Time pregabalin [From Lyrica] Allergy Intermediate Agitated Verified 06/28/18 09:59 Iodinated Contrast- Oral and AdvReac Mild VOMITING Verified 06/28/18 09:59 IV Dye Past Med/Surg History Medical History Diabetes (Chronic) Hyperlipidemia Hypertension Surgical History H/O shoulder surgery History of arthroplasty of left knee S/P hysterectomy Family History Other Family history non-contributory Social History Preferred Language: Bahraini Communication Ability: Effective Beliefs That Will Affect Care: None Current Living Situation: Significant Other 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al status: employed 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 and A total of 10 systems reviewed and were otherwise negative Physical Exam Vital Signs Vital Signs - 24 hr 06/28/18 09:21 06/28/18 11:18 06/28/18 12:44 Temperature 36.8 C Temperature Source Oral Sepsis Recent Fever Within 48 Hours No Sepsis Action Taken by Nursing No Action Required Pulse Rate [Apical] 73 68 Respiratory Rate 20 18 17 Respiratory Effort / Characteristics Non-Labored Non-Labored Respiratory Depth Normal Normal Respiratory Pattern Regular Blood Pressure 164/98 H Blood Pressure [Left Arm] 161/104 H 147/86 H Blood Pressure Mean 120 Blood Pressure Mean [Left Arm] 123 106 Blood Pressure Position [Left Arm] Lying Pulse Oximetry 97 95 97 Oxygen Delivery Method Room Air Room Air Room Air 06/28/18 15:39 Temperature Temperature Source Sepsis Recent Fever Within 48 Hours Sepsis Action Taken by Nursing Pulse Rate [Apical] 73 Respiratory Rate 17 Respiratory Effort / Characteristics Respiratory Depth Respiratory Pattern Blood Pressure Blood Pressure [Left Arm] 163/94 H Blood Pressure Mean Blood Pressure Mean [Left Arm] 117 Blood Pressure Position [Left Arm] Pulse Oximetry 92 Oxygen Delivery Method Room Air GENERAL: Sitting up in bed, alert, disheveled appearing, well nourished, no distress, non-toxic EYE EXAM: normal conjunctiva OROPHARYNX: no exudate, no erythema, lips, buccal mucosa, and tongue normal and mucous membranes are moist NECK: supple, no nuchal rigidity, no adenopathy, non-tender LUNGS: Clear to auscultation. Normal chest wall mechanics HEART: no murmurs, S1 normal and S2 normal ABDOMEN: abdomen soft, normo-active bowel sounds, no masses, no rebound or guarding. diffuse tenderness BACK: Back is symmetrical on inspection and there is no deformity, no midline tenderness, no CVA tenderness. SKIN: no rashes and no bruising. multiple tattoos present. UPPER EXTREMITIES: upper extremities are grossly normal. LOWER EXTREMITIES: No pitting edema. NEURO EXAM: Normal sensorium, cranial nerves II-XII grossly intact, normal speech, no gross weakness of arms, no gross weakness of legs. Course ED COURSE: Vital signs were reviewed and showed hypertension. The patients medical record was reviewed The above diagnostic studies were performed and reviewed. ED treatments and interventions as stated above. 1030: The patient was evaluated in room C08. A complete history and physical examination was performed. 1134: I discussed the patient's case with TRAVIS Ocampo, who will evaluate the patient further given her recent stay in the hospital. I updated the patient on her current findings. The patient refuses all medication but is amenable to completing further work-up. 1335: I discussed the patient's case with TRAVIS Sagastume, who will evaluate the patient for further management and care. 1340: Upon reevaluation, the patient continues to be symptomatic. I discussed my findings with the patient and she understands and agrees with the treatment plan. Based on the patients age, coexisting illnesses, exam and lab findings the decision to treat as an inpatient was made. The patient remained stable while under my care. The patient will be evaluated for further management. Consultations Consultation #1: I discussed the patient's case [place] [facility] [place] will evaluate the patient further given her recent stay in the hospital. Time: 11:34 Consultation #2: I discussed the patient's case [place] [facility] [place] will evaluate the patient for further management and care. Time: 13:35 Administered Medications Ioversol (Optiray 320 125ml) 120 ml IV ONCE PRN PRN Reason: Interaction Checking Stop: 07/02/18 12:55 Last Admin: 06/28/18 12:57 Dose: 120 ml Documented by: [id number] Discontinued Medications Aspirin (Aspirin) 324 mg PO NOW STA Stop: 06/28/18 11:22 Last Admin: 06/28/18 11:32 Dose: Not Given Documented by: [id number] Diphenhydramine HCl (Benadryl) 50 mg IV NOW STA Stop: 06/28/18 10:44 Last Admin: 06/28/18 11:14 Dose: Not Given Documented by: [id number] Sodium Chloride (Nss 1000ml) 1,000 mls @ 999 mls/hr IV .Q1H1M ONE Stop: 06/28/18 11:43 Last Infusion: 06/28/18 14:00 Dose: 0 mls/hr Documented by: [id number] Admin: 06/28/18 11:14 Dose: 999 mls/hr Documented by: [id number] Ketorolac Tromethamine (Toradol) 15 mg IV NOW ONE Stop: 06/28/18 10:44 Last Admin: 06/28/18 11:14 Dose: Not Given Documented by: [id number] Ondansetron HCl (Zofran) 4 mg IV NOW STA Stop: 06/28/18 11:22 Last Admin: 06/28/18 11:32 Dose: 4 mg Documented by: [id number] Ondansetron HCl (Zofran) 4 mg IV NOW STA Stop: 06/28/18 12:34 Last Admin: 06/28/18 12:43 Dose: 4 mg Documented by: [id number] Medical Decision Making Differential Diagnosis Differential diagnoses includes but is not limited to gastritis, peptic ulcer disease, GERD, gallbladder disease, pancreatitis, small bowel obstruction, acute coronary syndrome, pericarditis, ischemic bowel, irritable bowel disease, irritable bowel syndrome, appendicitis, diverticulitis, malignancy, hernia, urinary tract infection, torsion, /ectopic (if female), perforation, trauma, infectious. Medical Records Attestation: I reviewed the patient's medical records. Home Medications Current Medication List: was personally reviewed by me Laboratory Data Attestation: I reviewed the patient's lab results. Result diagrams: 06/28/18 11:07 06/28/18 11:07 Lab Results 06/28/18 06/28/18 06/28/18 Range/Units 11:05 11:05 11:07 WBC 9.74 (4.8-10.8) K/uL RBC 4.28 (4.2-5.4) M/uL Hgb 13.3 (12.0-16.0) g/dL Hct 37.0 (37-47) % MCV 86.4 (80-100) fL MCH 31.1 (25-34) pg MCHC 35.9 (32-36) g/dL RDW Std Deviation 41.7 (36.4-46.3) fL RDW Coeff of Abbi 13.1 (11.5-14.5) % Plt Count 196 (130-400) K/uL MPV 10.1 (7.4-10.4) fL Immature Gran % (Auto) 0.4 % Neut % (Auto) 57.4 % Lymph % (Auto) 17.9 % Wilkinson % (Auto) 7.5 % Eos % (Auto) 16.6 % Baso % (Auto) 0.2 % Immature Gran # (Auto) 0.04 H (0.00-0.02) K/uL Neut # (Auto) 5.59 (1.4-6.5) K/uL Lymph # (Auto) 1.74 (1.2-3.4) K/uL Wilkinson # (Auto) 0.73 H (0.11-0.59) K/uL Eos # (Auto) 1.62 H (0-0.5) K/uL Baso # (Auto) 0.02 (0-0.2) K/uL PT INR APTT (21.0-31.0) Seconds PTT Ratio D-Dimer Sodium (136-145) mmol/L Potassium (3.5-5.1) mmol/L Chloride (98-107) mmol/L Carbon Dioxide (21-32) mmol/L Anion Gap (3-11) BUN (7-18) mg/dl Creatinine (0.6-1.2) mg/dl Est Cr Clr Drug Dosing Est GFR ( Amer) Est GFR (Non-Af Amer) BUN/Creatinine Ratio (10-20) Glucose (70-99) mg/dl Calcium (8.5-10.1) mg/dl Total Bilirubin (0.2-1) mg/dl AST (15-37) U/L ALT (12-78) U/L Alkaline Phosphatase (45-117) U/L Total Creatine Kinase (26-192) U/L Total Protein (6.4-8.2) gm/dl Albumin (3.4-5.0) gm/dl Globulin (2.5-4.0) gm/dl Albumin/Globulin Ratio (0.9-2) Lipase (73-393) U/L Urine Color Yellow Urine Appearance Clear (Clear) Urine pH 6.0 (4.5-7.5) POC Urine pH 5 (4.5-7.5) Ur Specific [place] 1.015 (1.000-1.030) Urine Protein Negative (Negative) POC Urine Protein Negative (Negative) Urine Glucose (UA) Negative (Negative) POC Ur Glucose (UA) Normal (Normal) Urine Ketones 2+ H (Negative) POC Urine Ketones 2+ (Moderate) H (Negative) Urine Blood Negative (Negative) POC Urine Blood Negative (Negative) Urine Nitrite Negative (Negative) POC Urine Nitrite Negative (Negative) Urine Bilirubin Negative (Negative) POC Urine Bilirubin Negative (Negative) Urine Urobilinogen Negative (Negative) POC Urine Urobilinogen Normal (Normal) Ur Leukocyte Esterase Negative (Negative) POC U Leukocyte Esteras Negative (Negative) 06/28/18 06/28/18 06/28/18 Range/Units 11:07 11:07 11:07 WBC (4.8-10.8) K/uL RBC (4.2-5.4) M/uL Hgb (12.0-16.0) g/dL Hct (37-47) % MCV (80-100) fL MCH (25-34) pg MCHC (32-36) g/dL RDW Std Deviation (36.4-46.3) fL RDW Coeff of Abbi (11.5-14.5) % Plt Count (130-400) K/uL MPV (7.4-10.4) fL Immature Gran % (Auto) % Neut % (Auto) % Lymph % (Auto) % Wilkinson % (Auto) % Eos % (Auto) % Baso % (Auto) % Immature Gran # (Auto) (0.00-0.02) K/uL Neut # (Auto) (1.4-6.5) K/uL Lymph # (Auto) (1.2-3.4) K/uL Wilkinson # (Auto) (0.11-0.59) K/uL Eos # (Auto) (0-0.5) K/uL Baso # (Auto) (0-0.2) K/uL PT Cancelled INR Cancelled APTT (21.0-31.0) Seconds PTT Ratio D-Dimer Cancelled Sodium 139 (136-145) mmol/L Potassium 3.3 L (3.5-5.1) mmol/L Chloride 105 (98-107) mmol/L Carbon Dioxide 27 (21-32) mmol/L Anion Gap 7.0 (3-11) BUN 6 L (7-18) mg/dl Creatinine 0.58 L (0.6-1.2) mg/dl Est Cr Clr Drug Dosing Not Reportable Est GFR ( Amer) 116.1 Est GFR (Non-Af Amer) 100.2 BUN/Creatinine Ratio 10.0 (10-20) Glucose 138 H (70-99) mg/dl Calcium 9.0 (8.5-10.1) mg/dl Total Bilirubin 0.8 (0.2-1) mg/dl AST 9 L (15-37) U/L ALT 18 (12-78) U/L Alkaline Phosphatase 82 (45-117) U/L Total Creatine Kinase 36 Cancelled (26-192) U/L Total Protein 7.1 (6.4-8.2) gm/dl Albumin 3.4 (3.4-5.0) gm/dl Globulin 3.7 (2.5-4.0) gm/dl Albumin/Globulin Ratio 0.9 (0.9-2) Lipase 44 L (73-393) U/L Urine Color Urine Appearance (Clear) Urine pH (4.5-7.5) POC Urine pH (4.5-7.5) Ur Specific Vinton (1.000-1.030) Urine Protein (Negative) POC Urine Protein (Negative) Urine Glucose (UA) (Negative) POC Ur Glucose (UA) (Normal) Urine Ketones (Negative) POC Urine Ketones (Negative) Urine Blood (Negative) POC Urine Blood (Negative) Urine Nitrite (Negative) POC Urine Nitrite (Negative) Urine Bilirubin (Negative) POC Urine Bilirubin (Negative) Urine Urobilinogen (Negative) POC Urine Urobilinogen (Normal) Ur Leukocyte Esterase (Negative) POC U Leukocyte Esteras (Negative) 06/28/18 Range/Units 12:01 WBC (4.8-10.8) K/uL RBC (4.2-5.4) M/uL Hgb (12.0-16.0) g/dL Hct (37-47) % MCV (80-100) fL MCH (25-34) pg MCHC (32-36) g/dL RDW Std Deviation (36.4-46.3) fL RDW Coeff of Abbi (11.5-14.5) % Plt Count (130-400) K/uL MPV (7.4-10.4) fL Immature Gran % (Auto) % Neut % (Auto) % Lymph % (Auto) % Wilkinson % (Auto) % Eos % (Auto) % Baso % (Auto) % Immature Gran # (Auto) (0.00-0.02) K/uL Neut # (Auto) (1.4-6.5) K/uL Lymph # (Auto) (1.2-3.4) K/uL Wilkinson # (Auto) (0.11-0.59) K/uL Eos # (Auto) (0-0.5) K/uL Baso # (Auto) (0-0.2) K/uL PT 10.6 INR 1.0 APTT 28.7 (21.0-31.0) Seconds PTT Ratio 1.1 D-Dimer 530 H* Sodium (136-145) mmol/L Potassium (3.5-5.1) mmol/L Chloride (98-107) mmol/L Carbon Dioxide (21-32) mmol/L Anion Gap (3-11) BUN (7-18) mg/dl Creatinine (0.6-1.2) mg/dl Est Cr Clr Drug Dosing Est GFR ( Amer) Est GFR (Non-Af Amer) BUN/Creatinine Ratio (10-20) Glucose (70-99) mg/dl Calcium (8.5-10.1) mg/dl Total Bilirubin (0.2-1) mg/dl AST (15-37) U/L ALT (12-78) U/L Alkaline Phosphatase (45-117) U/L Total Creatine Kinase (26-192) U/L Total Protein (6.4-8.2) gm/dl Albumin (3.4-5.0) gm/dl Globulin (2.5-4.0) gm/dl Albumin/Globulin Ratio (0.9-2) Lipase (73-393) U/L Urine Color Urine Appearance (Clear) Urine pH (4.5-7.5) POC Urine pH (4.5-7.5) Ur Specific Vinton (1.000-1.030) Urine Protein (Negative) POC Urine Protein (Negative) Urine Glucose (UA) (Negative) POC Ur Glucose (UA) (Normal) Urine Ketones (Negative) POC Urine Ketones (Negative) Urine Blood (Negative) POC Urine Blood (Negative) Urine Nitrite (Negative) POC Urine Nitrite (Negative) Urine Bilirubin (Negative) POC Urine Bilirubin (Negative) Urine Urobilinogen (Negative) POC Urine Urobilinogen (Normal) Ur Leukocyte Esterase (Negative) POC U Leukocyte Esteras (Negative) Imaging Data Radiologist's Impression: Radiology results as stated below per my review and the radiologist's interpretation: SINGLE VIEW CHEST CLINICAL HISTORY: Atypical chest pain. FINDINGS: An AP, portable, upright chest radiograph is compared to study dated 06/24/2018. The heart is top normal for projection. The mediastinal contour is within normal limits. There is mild elevation of the right hemidiaphragm and bibasilar atelectasis. No airspace consolidation or large pleural effusion is identified. No pneumothorax is seen. The bony thorax is grossly intact. IMPRESSION: No active disease in the chest. Electronically signed by: Thong Veronica M.D. 06/28/2018 11:[address] ANGIOGRAM OF THE CHEST CLINICAL HISTORY: Dyspnea. Atypical chest pain. COMPARISON STUDY: Chest x-ray dated 06/28/2018. TECHNIQUE: Following the IV administration of 120 cc of Optiray 320, CT angiogram of the chest was performed from the upper abdomen to the thoracic inlet utilizing the pulmonary embolus protocol. Images are reviewed in the axial, sagittal, and coronal planes. 3-D MIPS images are created and assessed. IV contrast was administered without complication. A dose lowering technique was utilized adhering to the principles of ALARA. CT DOSE: 262.84 mGy.cm FINDINGS: Thyroid: Imaged portions of the thyroid gland are normal in size and attenuation. Thoracic aorta: There is mild atherosclerotic calcification of the thoracic aorta, which is normal in caliber and demonstrates standard 3-vessel arch anatomy. No dissection is seen. Pulmonary vasculature: The pulmonary trunk is dilated, measuring 3.7 cm in diameter. This suggests pulmonary artery hypertension. There are no filling defects identified in main, lobar, or segmental pulmonary branches to suggest pulmonary embolus. Heart: The heart is top normal in size and without pericardial effusion. There are coronary artery calcifications. Lungs and pleural spaces: There are trace pleural effusions with bibasilar atelectasis. There is no airspace consolidation typical for pneumonia. The trachea and central airways are clear. Mediastinum: There is no mediastinal lymphadenopathy. Aretha: Clear. Axillae: There is no axillary lymphadenopathy. Upper abdomen: The liver is enlarged and steatotic. Partially visualized upper abdominal viscera is otherwise within normal limits. Skeletal structures: No lytic or blastic bony lesions are seen. IMPRESSION: 1. There is no evidence of pulmonary embolus in the main, lobar, or segmental pulmonary arteries. 2. There are trace pleural effusions. 3. No airspace consolidation is identified typical for pneumonia. 4. Dilatation of the pulmonary trunk suggests pulmonary artery hypertension. 5. Additional findings as above. Electronically signed by: Thong Veronica M.D. 06/28/2018 1:09 PM ECG Data Attestation: I personally reviewed and interpreted this ECG as follows: Indication: abdominal pain Rate (beats per minute): 78 Rhythm: sinus rhythm Findings: + other (normal axis); no PVC Blood Pressure Blood Pressure Findings: Elevated blood pressure Blood Pressure Disposition: further management by hospitalist MDM Narrative Patient is a 58-year-old female who was recently admitted and left AMA last night around 10:00 for abdominal pain. She admits nausea associate with profuse diarrhea and 20 pound weight loss. She has had extensive work-up as an inpatient with a negative scope. She returns complaining of the same worsening pain. No signs of peritonitis on exam. She does not want any narcotics and yelled multiple times about this. She also notes that she has had chest pain shortness of breath since the scope yesterday. Labs were obtained and showed no significant leukocytosis or anemia. INR was unremarkable. D-dimer was negative. CT PE was performed and unremarkable. BMP with mild hypokalemia. No significant transaminitis. Lipase was normal. UA was negative but did show some mild dehydration. Patient was given IV fluids. She declined aspirin and Toradol. She declined all narcotics. She declined Benadryl as well. Discussed with GI and Dr. Britt and eventually discussed the case with Dr. Lyons for observation as patient had left AMA and presented back with same symptoms and was recently just seen by their services. Impression & Plan Abdominal pain, Vomiting, Shortness of breath, Diarrhea Discharge Plan Visit Data Chief Complaint: Shortness of Breath/Dyspnea Stated Complaint: SOB ED Provider: Ishan Bermudez Discharge Problem: Abdominal pain, Vomiting, Shortness of breath, Diarrhea Patient Disposition: Being Evaluated by Hospitalist Forms Stand Alone Forms: [facility] Prescriptions Prescriptions: No Action glipizide 10 mg tablet extended release 24hr 10 mg PO DAILY RF: 0 omeprazole 20 mg capsule,delayed release(DR/EC) 20 mg PO DAILY RF: 0 lisinopril 2.5 mg tablet 2.5 mg PO DAILY RF: 0 Premarin 0.3 mg tablet 0.3 mg PO DAILY RF: 0 venlafaxine 75 mg capsule,extended release 24hr 75 mg PO DAILY RF: 0 ondansetron HCl 4 mg tablet 4 mg PO Q8 PRN (Reason: Nausea) RF: 0 amitriptyline 10 mg tablet 10 mg PO HS RF: 0 Ozempic 0.25 mg or 0.5 mg(2 mg/1.5 mL) pen injector 0.25 mg subcut WK RF: 0 Referrals Referrals: Peter Angulo DO [Primary Care Provider] - The scribe's documentation has been prepared under my direction and personally reviewed by me in its entirety. I confirm that the note above accurately reflects all work, treatment, procedures, and medical decision making performed by me.
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
[2018-06-28] MEDS ORDERED: ONDANSETRON INJ 2 MG/ML 2 ML VIAL IV PRN (19:59)
[2018-06-28] MEDS ORDERED: ACETAMINOPHEN 325 MG TAB PO PRN (19:59)
[2018-06-28] MEDS ORDERED: MAGNESIUM HYDROXIDE SUSP 30 ML UDC PO PRN (19:59)
--- NOTE | 2018-06-28 21:00 | Ultrasound Report ---
RENAL ULTRASOUND CLINICAL HISTORY: Back pain. COMPARISON STUDY: CT of the abdomen and pelvis June 24, 2018. TECHNIQUE: Sonography of the kidneys and the urinary bladder was performed. FINDINGS: Increased hepatic echogenicity suggests fatty infiltration. There is no hydronephrosis. The right kidney measures 11.8 x 4 x 5.3 cm and the left measures 11.4 x 5.4 x 5 cm. No calculi or alanna s are identified. Neither ureteral jet was identified. Bladder is underdistended. IMPRESSION: 1. Normal sonographic appearance of the kidneys. No hydronephrosis. 2. Fatty infiltration of the liver. Electronically signed by: Betito Cardenas M.D. 06/28/2018 8:58 PM
[2018-06-28 21:11] LABS: Hepatitis B Surface Antigen Neg (Neg); Lyme Ab IgG w/WB Rflx Negative (Negative); Lyme Ab IgM w/WB Rflx Negative (Negative)
[2018-06-28 21:40] LABS: Hepatitis C IgG 13Yrs+Old_Rflx Neg (Neg)
[2018-06-28] MEDS: LACTATED RINGER'S 1,000 ML IV SCH (22:51)
[2018-06-29] MEDS: VENLAFAXINE HCL XR 75 MG CAPXR PO SCH ×2 (09:31→09:37)
[2018-06-29] MEDS ORDERED: KETOROLAC 30 MG/ML VIAL IV ONE (09:45)
[2018-06-29] MEDS: LACTATED RINGER'S 1,000 ML IV SCH (11:13)
--- NOTE | 2018-06-29 12:38 | Consultation Report ---
DATE OF CONSULTATION: 06/29/2018 GI CONSULT NOTE REASON FOR EVALUATION: Abdominal pain, nausea, vomiting, and diarrhea. HISTORY OF PRESENT ILLNESS: The patient is a 58-year-old who was just recently hospitalized here for similar symptoms, but signed out AMA. The patient has been previously worked up in [place] for these symptoms over the last 5 months and approximately a year ago had an EGD and colonoscopy from what I can gather, there was no significant pathology found. She had a CAT scan during her last hospitalization here which suggested some thickness in the duodenal area and an atrophic pancreas. An EGD was performed, but no duodenal pathology was found. She has been tested for hepatitis A, B and C, HIV and Lyme disease, all of which were negative. The patient has been on some antidepressants and is weaning herself off them. The patient wants to get off all of her medications if she can, which I am not sure it is a great idea. She presented back to the hospital last night with the same symptoms and is agreeable to being hospitalized for further evaluation. PAST MEDICAL HISTORY: Remarkable for depression, hypertension, diabetes. MEDICATIONS: Premarin, glipizide, lisinopril, omeprazole, amitriptyline, ondansetron, Ozempic, venlafaxine. ALLERGIES: LYRICA AND IODINE CONTRAST. FAMILY HISTORY: Noncontributory. 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 No alcohol. Lives with her significant other. REVIEW OF SYSTEMS: Positive for previous hysterectomy, shoulder surgery and left knee arthroplasty. PHYSICAL EXAMINATION: GENERAL: The patient appears somewhat distressed emotionally. ABDOMEN: Shows tenderness in the right upper quadrant. No mass or rebound. SKIN: Shows multiple tattoos on her arms and chest. IMPRESSION: The patient has nausea, vomiting, abdominal pain, diarrhea with some tenderness in the right upper quadrant. She has already had an extensive evaluation, but I plan on getting an MRI enterography of the small intestine based on the previous CAT scan. I also plan on checking urine for porphyrin screen. We will also get a biliary scan with ejection fraction to test the function of her gallbladder. If these are negative, it may be worth a trial of pancreatic enzyme replacement to see if she has any response to that.
[2018-06-29] MEDS ORDERED: GADOBUTROL 65ML VIAL IV PRN (13:07)
--- NOTE | 2018-06-29 15:06 | Magnetic Resonance Report ---
MR enterography wo/w con HISTORY: 58 years-old Female abd pain , abnl duodenum on CT acute generalized abdominal pain with re cent weight loss COMPARISON: CT abdomen and pelvis 06/24/2018 TECHNIQUE: MR enterography was obtained both with and without the use of 7 mL Gadavist FINDINGS: Trace pleural effusions. Probable left renal cysts. Prior hysterectomy. Urinary bladder is unremarkab le. No adnexal mass lesions. Iliac vasculature is unremarkable. The imaged solid abdominal organs mariposa ear unremarkable. Abdominal wall soft tissues are unremarkable. The bony structures are also unremark able. There is mild gastric distention. Persistent moderate wall thickening is noted throughout the duodenu m and within several loops of jejunum which appears mildly improved from comparison study. No associa destiney small bowel obstruction, small bowel mass or focal stricture identified. Mild interloop edema abo ut the proximal duodenum redemonstrated. No large volume ascites or drainable fluid collection. Moder ate sized duodenal diverticulum. Peristalsing bowel is noted within all four quadrants of the abdomen . Colonic diverticulosis. No definite CT evidence of acute diverticulitis. The appendix is not defini tively seen. There is no evidence of acute appendicitis. No sinus or fistulous tracts identified. Reji rometallic artifacts noted about the left aspect of the lower abdominal wall. IMPRESSION: 1. Moderate wall thickening throughout the duodenum and jejunum appears mildly improved from 06/24/2018 suggestive of a nonspecific duodenitis/enteritis. 2. No small bowel obstruction, stricture or mass identified. 3. Colonic diverticulosis. 4. Trace pleural effusions. The above report was generated using voice recognition software. It may contain grammatical, syntax o r spelling errors. Electronically signed by: Germán Godinez M.D. 06/29/2018 3:05 PM
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
--- NOTE | 2018-06-29 16:16 | History & Physical ---
Date of Service June 29, 2018 Psychiatric History Identifying Data OBED GOLDSTEIN is a 58-year-old F who currently lives in [] [alone] with [], has a history of [], and was admitted on 06/28/18 18:11 on a [201 voluntary] [302 involuntary] commitment for []. Chief Complaint "[]". Allergies Allergy/AdvReac Type Severity Reaction Status Date / Time pregabalin [From Lyrica] Allergy Intermediate Agitated Verified 06/28/18 09:59 Iodinated Contrast- Oral and AdvReac Mild VOMITING Verified 06/28/18 09:59 IV Dye Home Medications Home Medications Medication Instructions Recorded Confirmed Type Premarin 0.3 mg PO DAILY 05/05/18 06/25/18 History glipizide 10 mg PO DAILY 05/05/18 06/25/18 History lisinopril 2.5 mg PO DAILY 05/05/18 06/25/18 History omeprazole 20 mg PO DAILY 05/05/18 06/25/18 History amitriptyline 10 mg PO HS 06/25/18 06/25/18 History ondansetron HCl 4 mg PO Q8 PRN 06/25/18 06/25/18 History semaglutide [Ozempic] 0.25 mg SUBCUT WK 06/25/18 06/25/18 History venlafaxine 75 mg PO DAILY 06/25/18 06/28/18 History Smoking Use Have You Smoked or Used Tobacco Products in the Last 30 Days: Yes tobacco type: cigarettes and pipe Smoking Status: Former smoker Personal History Beliefs That Will Affect Care: Christianity and Spiritual Patient History Medical History Diabetes (Chronic) Hyperlipidemia Hypertension Surgical History H/O shoulder surgery History of arthroplasty of left knee S/P hysterectomy Family History Other Family history non-contributory Social History Preferred Language: Cymraes Communication Ability: Effective Beliefs That Will Affect Care: Christianity and Spiritual Spiritual Healthcare Practices: background Current Living Situation: Significant Other 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al status: employed 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 [employer] Other Information That Helps Us Care for You: Yes ("Don't take my stuff") Feels Safe at Home: Yes Safety Concerns: Feels Safe At This Time Smoking Status: Former smoker Tobacco Type: cigarettes and pipe Cigarettes Per Day: 7 Second Hand Exposure: No Hx Alcohol Use: No Hx Substance Use: No Physical Exam Vital Signs (Past 24 Hours): Last Vital Signs Temp 36.7 C 06/29/18 15:27 Pulse 70 06/29/18 15:27 Resp 16 06/29/18 15:27 BP 161/88 H 06/29/18 15:27 Pulse Ox 94 06/29/18 15:27 Results & Data Laboratory Results Laboratory Results - last 24 hr 06/28/18 06/28/18 06/28/18 20:05 20:11 20:11 POC Glucose 148 H Lyme Disease IgG Ab Negative Lyme Disease IgM Ab Negative Hep Bs Antigen Neg Hepatitis C Antibody Neg 06/29/18 11:45 POC Glucose 144 H Lyme Disease IgG Ab Lyme Disease IgM Ab Hep Bs Antigen Hepatitis C Antibody Current Inpatient Medications Current Inpatient Medications: Current Inpatient Medications Acetaminophen (Tylenol) 650 mg PO Q4H PRN PRN Reason: pain/fever Stop: 07/28/18 19:58 Gadobutrol (Gadavist 65ml) 7 ml IV ONCE PRN PRN Reason: Interaction Checking Stop: 07/03/18 13:06 Last Admin: 06/29/18 13:08 Dose: 7 ml Documented by: Lactated Ringer's (Lr) 1,000 mls @ 80 mls/hr IV .[id number] MADELEINE Stop: 07/28/18 22:44 Last Infusion: 06/29/18 13:10 Dose: 80 mls/hr Documented by: Ioversol (Optiray 320 125ml) 120 ml IV ONCE PRN PRN Reason: Interaction Checking Stop: 07/02/18 12:55 Last Admin: 06/28/18 12:57 Dose: 120 ml Documented by: Magnesium Hydroxide (Milk Of Magnesia) 30 ml PO Q6H PRN PRN Reason: Constipation Stop: 07/28/18 19:58 Ondansetron HCl (Zofran) 4 mg IV Q6H PRN PRN Reason: Nausea Stop: 07/28/18 19:58 Venlafaxine HCl (Effexor Extended Release) 75 mg PO DAILY MADELEINE Stop: 07/29/18 08:59 Last Admin: 06/29/18 09:37 Dose: 75 mg Documented by: CPT Code CPT Code Initial Hospital Care: [id number]
--- NOTE | 2018-06-29 21:44 | Hospitalist Progress Note ---
Date of Service June 29, 2018 Assessment & Plan (1) Abdominal pain: For 5 years. Associated GI symptoms - nausea, bloating, diarrhea, flatulence, mucous in stools, weight loss. EXTENSIVE w/u at multiple facilities for such without specific dx. Celiac ruled out with negative duodenal biopsy. Small intestinal bacterial overgrowth? pancreatic insufficiency? component of IBS? other? recheck c diff and stool culture check qualitative fecal fat agree with porphyria w/u agree with HIDA scan appreciate GI recommendations (2) Duodenitis: negative biopsies recently MRI enterography shows improved duodenitis/jejunal inflammation cause? (3) Diarrhea: see above consider low "FODMAP" diet (4) Diabetes: occasional highs but overall control is reasonable (5) Hypertension: control inadequate at this time resume SMILEY - doubt causing any of her symptoms (6) Depression: history of psych eval appreciated no specific recs at this time (7) Severe protein-calorie malnutrition: add MVI add boost check b12, folate, 25-OH vit D, etc while here (8) DVT prophylaxis: will need GI prophy if she stays beyond tomorrow Subjective patient able to tolerate full liquid diet and requests advancement patient reports top 3 GI symptoms - bloating, excess gas, and profuse diarrhea with mucous. denies emesis. very frustrated that an underlying diagnosis has not been made over the years. tested for tropical sprue by Dr Castillo in [place] - negative. EGD/colonoscopy 2017 in [place] negative. wants c diff retested. Review of Systems Constitutional: + weight loss (20 pounds) Respiratory: no cough and no dyspnea Cardiovascular: no chest pain Gastrointestinal: + abdominal pain, + bloating, + excessive flatulence and + diarrhea/loose stools; no nausea, no vomiting and no blood in stools Physical Exam Constitutional: no acute distress ENMT: external ear and nose normal, oropharynx normal Respiratory: normal respiratory effort, lungs clear to auscultation Cardiovascular: RRR, no murmur, no edema Heart Sounds: normal S1 and normal S2; no murmur Vessels: posterior tibial pulses present and dorsalis pedis pulses present; no JVD Gastrointestinal (Abdomen): normal bowel sounds, soft, nontender, no hepatosplenomegaly Skin: no rashes, warm and dry Psychiatric: A+Ox3, euthymic affect Results & Data Vital Signs (Past 12 Hours) Vital Signs Temp Pulse Resp BP Pulse Ox 06/29/18 15:27 36.7 C 70 16 161/88 H 94 Laboratory Results Laboratory Results - last 24 hr 06/29/18 06/29/18 06/29/18 11:45 16:48 20:59 POC Glucose 144 H 188 H 191 H Ur [place] Porphobilinogen U Porphobilinogen Intrp Stl C. diff Tox B Gene 06/29/18 06/29/18 06/30/18 21:00 21:00 07:56 POC Glucose 125 H Ur [place] Porphobilinogen Cancelled U Porphobilinogen Intrp Cancelled Stl C. 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
[2018-06-30] MEDS: LACTATED RINGER'S 1,000 ML IV SCH ×2 (00:14→17:28)
[2018-06-30] MEDS ORDERED: MAGNESIUM SULFATE / D5W 1 GM/100 ML BAG IV ONE (01:15)
[2018-06-30] MEDS ORDERED: GLUCAGON FOR INJ 1 MG VIAL IM PRN (08:45)
[2018-06-30] MEDS ORDERED: DEXTROSE 50% 50 ML SYRINGE IV PRN (08:45)
[2018-06-30] MEDS ORDERED: GLUCOSE 10 TABS/TUBE PO PRN (08:45)
[2018-06-30] MEDS ORDERED: GLUCOSE 40% GEL 15 GM TUBE PO PRN (08:45)
[2018-06-30] MEDS ORDERED: CARBOHYDRATES FOR HYPOGLYCEMIA PO PRN (08:45)
[2018-06-30] MEDS ORDERED: SINCALIDE 1.4 MCG in 0.9 % SODIUM CHLORIDE 100 ML IV ONE (09:00)
[2018-06-30] MEDS ORDERED: LISINOPRIL 5 MG TAB PO SCH (09:00)
[2018-06-30] MEDS: CEROVITE ADV FORMULA TAB PO SCH (10:29)
[2018-06-30] MEDS: VENLAFAXINE HCL XR 75 MG CAPXR PO SCH (10:29)
[2018-06-30] MEDS: INSULIN ASPART 100 UNITS/ML 3 ML PEN SC SCH ×4 (10:30→22:05)
[2018-06-30] MEDS: INSULIN GLARGINE SOLOSTAR 100 UNITS/ML 3 ML PEN SC SCH (10:31)
--- NOTE | 2018-06-30 11:01 | Nuclear Medicine Report ---
NM hepatobiliary EF CLINICAL HISTORY: 58 years-old Female with RUQ pain, N and V. "Acute right upper quadrant abdominal pain with nausea and vomiting TECHNIQUE: Following the intravenous administration of 5.4 mCi of technetium-99m Choletec, sequentia l abdominal images were obtained. In order to evaluate the contractile response of the gallbladder, 1.4 mcg of Kinevac was administered by slow intravenous infusion over 30 minutes starting approximate ly 60 min after the administration of the radiopharmaceutical. Sequential imaging was continued for 45 min after the start of the Kinevac infusion. COMPARISON: CT abdomen and pelvis 06/24/2018 FINDINGS: There is prompt, uniform accumulation of the tracer by the liver. There is normal filling of the int rahepatic ducts, common bile duct and gallbladder and normal excretion of the tracer into the duodenu m. There is adequate contraction of the gallbladder. The calculated gallbladder ejection fraction i s 50% (normal >40%). There is a large amount of enterogastric reflux. IMPRESSION: 1. Normal contractile response of the gallbladder to Kinevac infusion. 2. Large amount of enterogastric reflux. The above report was generated using voice recognition software. It may contain grammatical, syntax o r spelling errors. Electronically signed by: Germán Godinez M.D. 06/30/2018 10:59 AM
--- NOTE | 2018-06-30 17:54 | Progress Note ---
DATE: 06/30/2018 HISTORY OF PRESENT ILLNESS: The patient was doing better this morning and her IV fluids were discontinued, but this evening, she has been having more pain and loose stools with a lot of abdominal cramping. She is currently tearful in bed. OBJECTIVE: VITAL SIGNS: Blood pressure is 169/103, pulse 66, temperature is 37.1. ABDOMEN: Sore, particularly in the left upper quadrant. She underwent a biliary scan today, which was normal. There was some enterogastric reflux, but ejection fraction and path of the tracer was normal. Her MR enterography yesterday was also uneventful. Her urine porphyrin screen is still pending. Her psychiatric evaluation was remarkable for depression but no suicidal ideation. They recommended staying on 75 mg of Effexor and not to continue to taper it. IMPRESSION: The patient continues to have episodes of abdominal pain and loose stools and nausea. At this point, recommend a trial of pancreatic enzyme replacements as her pancreas appear to be somewhat atrophic on CT scan. We will do a clinical trial with pancreatic enzyme replacement before meals and await her porphyrin screen. We will restart her IV fluids in the interim.
[2018-06-30] MEDS ORDERED: PANCREAZE (LIPASE 4,200U) CAP PO ONE (18:00)
[2018-06-30] MEDS ORDERED: AMLODIPINE BESYLATE 5 MG TAB PO ONE (19:30)
--- NOTE | 2018-06-30 21:09 | Hospitalist Progress Note ---
Date of Service June 30, 2018 Assessment & Plan (1) Abdominal pain: Chronic, x 5 years. Associated GI symptoms - nausea, bloating, diarrhea, flatulence, mucous in stools, weight loss. EXTENSIVE w/u at multiple facilities for such without specific diagnosis found. Celiac ruled out with negative duodenal biopsy at [facility] during recent admission. HIDA scan w/o signs of biliary dyskinesia or dysfunction. Small intestinal bacterial overgrowth? pancreatic insufficiency? component of IBS? other? c diff gene negative stool culture pending qualitative fecal fat pending porphyria testing pending GI to trial her on pancrease given her pancreatic atrophy noted on CT if not effective -- trial of rifaximin for bacterial overgrowth syndrome? awaiting path reports from colonoscopy done at [facility] about 1 year ago cont PPI consider bile acid sequestrant given her bile reflux seen on HIDA today? (2) Duodenitis: negative biopsies recently MRI enterography shows improved duodenitis/jejunal inflammation cause? (3) Diarrhea: see above consider low "FODMAP" diet c diff negative stool cx pending (4) Diabetes: add lantus daily adjust novolog (5) Hypertension: BPs high - refusing to go back on lisinopril amlodipine 5mg daily (6) Depression: history of psych eval appreciated no specific recs at this time cont outpatient meds (7) Severe protein-calorie malnutrition: MVI, boost check b12, folate, 25-OH vit D, iron studies in am low fiber diet (8) DVT prophylaxis: start lovenox 40mg daily in am Subjective patient states that when she had her HIDA and was given Sincalide she had stomach pain in the RUQ/epigastric region. since returning from the [facility] she has had nausea. prior to the HIDA she had been feeling ok. able to eat yesterday w/o intolerance. no new complaints today. did refuse her lisinopril this am stating "I'm worried that it is causing some of my symptoms" Review of Systems Constitutional: + fatigue and + anorexia; no fever and no chills Ear, Nose, Mouth, Throat: + sore throat Respiratory: no cough and no dyspnea Cardiovascular: no chest pain Gastrointestinal: + abdominal pain, + bloating, + nausea and + excessive flatulence; no vomiting Physical Exam Constitutional: average body habitus; no acute distress and not ill appearing ENMT: Mouth: + oropharynx abnormality (mild erythema) Respiratory: normal respiratory effort, lungs clear to auscultation Cardiovascular: RRR, no murmur, no edema Heart Sounds: normal S1 and normal S2; no murmur Vessels: posterior tibial pulses present and dorsalis pedis pulses present; no JVD Gastrointestinal (Abdomen): Inspection/Auscultation: normal bowel sounds; abdomen not distended Percussion/Palpation: + abdomen tender (RUQ/epigastric region (mild)) and abdomen soft; no guarding, abdomen not rigid, no hepatosplenomegaly, no hernia and no ascites Skin: no rashes, warm and dry Psychiatric: A+Ox3, euthymic affect Results & Data Vital Signs (Past 12 Hours) Vital Signs Temp Pulse Resp BP BP Pulse Ox 06/30/18 20:27 164/104 H 06/30/18 17:36 173/106 H 06/30/18 15:29 37.1 C 66 18 169/103 H 93 Laboratory Results Laboratory Results - last 24 hr 06/29/18 06/29/18 06/30/18 21:00 21:00 07:09 POC Glucose Magnesium 1.9 Ur [place] Porphobilinogen Cancelled U Porphobilinogen Intrp Cancelled Stl C. diff Tox B Gene Negative Cdiff Gene 06/30/18 06/30/18 06/30/18 07:56 11:31 17:06 POC Glucose 125 H 212 H 135 H Magnesium Ur [place] Porphobilinogen U Porphobilinogen Intrp Stl C. diff Tox B Gene 06/30/18 20:03 POC Glucose 215 H Magnesium Ur [place] Porphobilinogen U Porphobilinogen Intrp Stl C. 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
[2018-07-01] MEDS: LACTATED RINGER'S 1,000 ML IV SCH (07:00)
[2018-07-01] MEDS: PANCREAZE (LIPASE 4,200U) CAP PO SCH ×3 (08:07→15:59)
[2018-07-01] MEDS: CEROVITE ADV FORMULA TAB PO SCH (08:08)
[2018-07-01] MEDS: VENLAFAXINE HCL XR 75 MG CAPXR PO SCH (08:08)
[2018-07-01] MEDS ORDERED: ENOXAPARIN INJ 40 MG/0.4 ML SYR SQ SCH (09:00)
[2018-07-01 09:15] LABS: BUN Creatinine Ratio 9.2 (10-20); Calcium 9.5 mg/dl (8.5-10.1); Creatinine Clr Calc Pharmacy 80.7 ml/min; Est GFR (African American) 105.5; Potassium 3.3 mmol/L (3.5-5.1)
[2018-07-01] MEDS ORDERED: AMLODIPINE BESYLATE 5 MG TAB PO SCH (09:15)
[2018-07-01 09:19] LABS: Folate (Folic Acid) 15.19 ng/ml (>5.38)
[2018-07-01 09:20] LABS: Ferritin 141.7 ng/ml (8-388)
[2018-07-01] MEDS: INSULIN ASPART 100 UNITS/ML 3 ML PEN SC SCH ×2 (10:20→14:26)
[2018-07-01] MEDS: INSULIN GLARGINE SOLOSTAR 100 UNITS/ML 3 ML PEN SC SCH (10:23)
[2018-07-01] MEDS ORDERED: POTASSIUM CHLORIDE 10 MEQ TABCR PO STA (11:03)
[2018-07-01] MEDS ORDERED: ERGOCALCIFEROL 50,000 UNITS CAP PO ONE (11:15)
--- NOTE | 2018-07-01 13:05 | Progress Note ---
DATE: 07/01/2018 REASON FOR EVALUATION: Abdominal pain. HISTORY OF PRESENT ILLNESS: The patient was started on pancreatic enzymes yesterday and it seems to be making an impact on her symptoms. The patient noted that she does not feel like throwing up when she eats. When she takes pancreatic enzymes, she is going to try taking them before the meal which may work better than taking with the meal. I discussed her situation with Dr. Aldana and we feel that she is able to go home and be followed up as an outpatient. If this does not work, we may consider doing a breath test for bacterial overgrowth. Currently, her urine for porphyrins is pending. OBJECTIVE: Abdomen is soft. There is still a little bit of tenderness in the epigastric area. IMPRESSION: The patient's abdominal pain, vomiting, and diarrhea are improving with pancreatic enzyme replacement. This will be continued as an outpatient. We will see her back in the office in a month or 2. From GI standpoint, she can be discharged today.
[2018-07-02 16:18] LABS: HIV 1 RNA PCR Copies/ML <20 NOT DETECTED COPIES/mL (<20); HIV-1 RNA Log Copies/mL <1.30 NOT DETECTED (<1.30); Hepatitis BE Antibody Nonreactive
--- NOTE | 2018-07-06 13:06 | Discharge Summary ---
Date of Service date of admission - June 28, 2018 date of discharge - July 01, 2018 Admission HPI Per Admitting Provider 58 y/o F c/o abd pain. Pt left AMA from [facility] yesterday. She states that she should not have left, but she was having ongoing pain and felt that she was not getting any answers after "sitting around for five days waiting for a scan and not being fed anything". Pt has had abd pain and v/d intermittently x6 years. She states she had an extensive work up with Dr. Matthew Castillo "bless his heart, he tried everything for me", but that there were no answers. She would have periods of time where she did not have issues and could eat normally, but then she would have sudden onset of pain and inability to eat without immediate diarrhea. She had been doing well with this until March when she was hit in the abd with wood that she was working on as a door frame for her mother's home. She started having pain with this. She has been undergoing work up for this. She was seen at [facility] last Wednesday and d/c'd. She has been seen at [facility] for this recently. She was seen in an urgent care last week and put on Miralax x4 days, but her sx worsened, so she was admitted to [facility] starting last . Pt states that she was supposed to have some sort of MRI, but could not tolerate the pain any further, so she left yesterday. She states she called back this AM asking if she could be readmitted and was directed to the ED. Pt states that she feels terribly for how she acted towards Dr. Britt and Felisa Ma "they were really trying to help me". Pt states that today she started having a pain in her low back that is pulsing and waxes/wanes. She states it feels like when she has had a kidney infection in the past. Pt states she is not going to take any more medications other than an effexor taper. She does not want any narcotics for her pain. She has been tolerating liquids well, although she tried some broth with noodles and felt the noodles caused diarrhea and abd pain. Pt states "I just had to leave yesterday. My pain was so terrible. I had planned to go home and pop pop it was so bad, but then I saw my beautiful girlfriend's face and knew I had to stay alive to love her forever." When asked what "pop pop" meant, she stated "you know". She states that she no longer feels this way. 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 "I don't usually talk about that, but Ron says I should tell you." She does not think she has been checked for hepatitis or HIV. Pt denies fever, SOB, chest pain, LE pain or swelling. Principal Diagnosis chronic abdominal pain, diarrhea - exact etiology uncertain Discharge Exam Constitutional average body habitus; no acute distress and not ill appearing ENMT external ear and nose normal, oropharynx normal Mouth: + oropharynx abnormality (mild erythema) Respiratory normal respiratory effort, lungs clear to auscultation Cardiovascular RRR, no murmur, no edema Heart Sounds: normal S1 and normal S2 Vessels: posterior tibial pulses present and dorsalis pedis pulses present; no JVD Gastrointestinal (Abdomen) normal bowel sounds, soft, nontender, no hepatosplenomegaly Inspection/Auscultation: abdomen not distended Percussion/Palpation: no guarding, abdomen not rigid, no hernia and no ascites Skin no rashes, warm and dry Psychiatric A+Ox3, euthymic affect Discharge Data Allergies Allergy/AdvReac Type Severity Reaction Status Date / Time pregabalin [From Lyrica] Allergy Intermediate Agitated Verified 07/04/18 23:11 Iodinated Contrast- Oral and AdvReac Mild Vomiting Verified 07/04/18 23:11 IV Dye Consultations 1. [facility] - Scot Auguste MD 2. Psychiatry Ordered Studies 1. CTA chest - negative for PE or other pathology. 2. Renal u/s - IMPRESSION: 1. Normal sonographic appearance of the kidneys. No hydronephrosis. 2. Fatty infiltration of the liver. 3. MRI enterography - IMPRESSION: 1. Moderate wall thickening throughout the duodenum and jejunum appears mildly improved from 06/24/2018 suggestive of a nonspecific duodenitis/enteritis. 2. No small bowel obstruction, stricture or mass identified. 3. Colonic diverticulosis. 4. Trace pleural effusions. 4. HIDA scan - IMPRESSION: 1. Normal contractile response of the gallbladder to Kinevac infusion. 2. Large amount of enterogastric reflux. Hospital Course (1) Abdominal pain: Chronic, x 5 years. Associated GI symptoms - nausea, bloating, diarrhea, flatulence, mucous in stools, intermittent weight loss. EXTENSIVE work-up at multiple facilities for such without specific diagnosis found. Had EGD/colonoscopy by Dr Matthew Castillo in [place] within the last year. Colonoscopy showed ulcerations but patient was told pathology reports were normal. Ma Dave requested these path reports but did not receive them from [facility]. Patient just had an EGD during a recent hospital stay and this was normal. Celiac disease was ruled out with negative duodenal biopsy during this EGD. HIDA scan this admission did not show signs of biliary dyskinesia or dysfunction. Bile reflux was seen, however. MRI enterography showed duodenal and jejunal inflammation but the appearance was improved from prior imaging studies. Significance and etiology of the inflammation was uncertain. She was seen in consult by [facility], Dr. Scot Auguste. Since imaging studies have shown pancreatic atrophy a trial of pancrease was advised. Patient was initiated on such and seemed to have improved GI symptoms. She was able to eat/drink without difficulty following the start of pancrease supplementation. At discharge we advised ongoing use of pancrease with meals and snacks. A follow-up appointment was made for the patient with Dr Auguste. If the patient's GI symptoms return despite pancrease then could consider an outpatient breath test to rule out small intestinal bacterial overgrowth syndrome. Could also consider a bile acid sequestrant for bile reflux. Other studies that were NEGATIVE/NORMAL while here: 1. stool c diff gene 2. bacterial stool cultures 3. qualitative fecal fat 4. random urine for porphyria 5. HIV testing 6. Hepatitis B and C testing (2) Duodenitis: negative biopsies on EGD (ie - no celiac disease). MRI enterography showed improved duodenitis/jejunal inflammation -- exact etiology for these findings was uncertain. (3) Diarrhea: see above in "abdominal pain" consider low "FODMAP" diet c diff negative stool cultures negative (4) Diabetes: She will resume her normal regimen at discharge. (5) Hypertension: BPs high - refusing to go back on lisinopril. She believed lisinopril was contributing to her GI symptoms. Amlodipine 5mg daily was substituted and prescribed at discharge. (6) Depression: history of. psych evaluation was requested. no specific recommendations were made during this admission. she will continue her usual outpatient medications. (7) Severe protein-calorie malnutrition: MVI, boost recommended. Checked b12, folate, 25-OH vitamin D, and iron studies. All were normal except vitamin D level was 17. She was advised to take a course of ergocalciferol for 8 weeks. (8) Vitamin D deficiency: Total Time Total Time Spent Total Time Spent (In Minutes): 45 Total Time Includes: Examination of the Patient, Discharge Planning, Medication Reconciliation and Communication With Other Providers Discharge Plan Discharge Items Patient Disposition: Home - Self-Care Reason For Visit: Abdominal pain Discharge Diagnosis: abdominal pain, bloating, gas, diarrhea - c diff ruled out; gall bladder disease ruled out; pancreatic insufficiency? 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 Scot Auguste on August 18 at 12:45 pm. *This office is located at [address] [place] [address] - next to [facility]. If you need to change this appointment, call the office at [phone].) Peter Angulo DO [Primary Care Provider] - 07/04/18 8:00 am (Please, follow up at Dr. Angulo's office with his inventory assistant, Lupe Salcedo PA-C, on WednesdayJuly 04 at 8:00 am. *If you need to change this appointment, call the office at [phone].) Diet: Carb Consistent or DM2 and Low Fiber Addtl Provider Instructions: From Modesto Aldana - Hospitalist - The following tests were performed while here- 1. CAT scan of the lungs - no blood clots, tumors, pneumonia, etc. 2. Kidney ultrasound - normal kidneys. 3. HIDA scan - normal gall bladder function. Bile reflux (bile went into the stomach) was seen. 4. MRI of intestines - previous inflammation of the small intestine IS improved. 5. c. diff - negative, no c.diff infection. 6. vitamin B12, folate, and iron levels - normal. 7. vitamin D level - LOW at 17; moderate deficiency (normal 30 and up). You were seen by Dr. Auguste from [facility]. He recommended a trial of pancreatic enzymes as your pancreas appears "atrophied" on CAT scan (smaller than when you were younger). The enzymes seemed to help your GI symptoms. He recommends continuing these at home for meals and snacks. Take 1 capsule with breakfast, lunch, dinner and with a protein-rich snack. Consider following a low "FOD MAP" diet. [facility] website has good information on this. [facility] as well. Avoid high fiber foods. For your blood pressure - stop the lisinopril for now - change to amlodipine 5mg once daily. For your vitamin D deficiency take a prescription vitamin D capsule ONCE A WEEK FOR 8 WEEKS. You received your first capsule today. Consider taking a "gummy" multivitamin for adults every day. If your symptoms persist Dr. Auguste may perform an outpatient "breath test" for a condition called small intestine bacterial overgrowth. Follow-up - see separate section. Return to any hospital if -- * you have fevers over 100.5 degrees * you have severe vomiting * you have severe abdominal pain * you have severe diarrhea * any other concern Prescriptions: New amlodipine 5 mg tablet 5 mg PO DAILY Qty: 30 RF: 2 Creon 12,000-38,000 -60,000 unit capsule,delayed release(DR/EC) 1 cap PO AC Qty: 120 RF: 2 Continued glipizide 10 mg tablet extended release 24hr 10 mg PO QAM RF: 0 omeprazole 20 mg capsule,delayed release(DR/EC) 20 mg PO DAILY RF: 0 Premarin 0.3 mg tablet 0.3 mg PO DAILY RF: 0 venlafaxine 75 mg capsule,extended release 24hr 75 mg PO DAILY RF: 0 Discontinued lisinopril 2.5 mg tablet 2.5 mg PO DAILY RF: 0 No Action ergocalciferol (vitamin D2) 50,000 unit capsule 50,000 units PO WK RF: 0 Stand-Alone Forms: My [facility] Discharge Orders: Discharge Order (Routine); Ordered 07/01/18 Ordered By: Modesto Aldana Admission Data Admit Date/Time: 06/28/18 18:11 Attending Provider: Modesto Aldana Admit Provider: Ashlyn Gallegos Primary Care Provider: Peter Angulo Other Providers: Solomon Lyons ; Scot Auguste ; Angélica Avalos Service: Medical Other Interventions: Discharge Summary Assessment (RN) Last Done: 07/01/18 17:59 Pending Studies at Discharge: No DC Date/Time DO NOT enter until pt leaves facility: 07/01/18 18:16
== END 2018-07-01 18:16 | disposition home or self-care (01) | DRG 438 ==
LOC: ED 09:11 → SUATTDRO 18:11 → 4W 18:11

== ENCOUNTER 2018-07-04 22:32 | Observation (INO) ==
[2018-07-04] MEDS ORDERED: ONDANSETRON INJ 2 MG/ML 2 ML VIAL IV STA (23:34)
[2018-07-04] MEDS ORDERED: SODIUM CHLORIDE 0.9% 1000ML 1,000 ML IV ONE (23:34)
[2018-07-04] MEDS ORDERED: ACETAMINOPHEN 1,000 MG/100 ML VIAL IV STA (23:34)
[2018-07-04] MEDS ORDERED: DiphenhydrAMINE HCL 50 MG/ML VIAL IV STA (23:34)
[2018-07-04 23:44] LABS: Basophils # (auto) 0.03 K/uL (0-0.2); Basophils % (auto) 0.3 %; Eosinophils # (auto) 1.55 K/uL (0-0.5); Eosinophils % (auto) 14.2 %; Hematocrit (blood only) 42.1 % (37-47); Hemoglobin 15.5 g/dL (12.0-16.0); Immature Granulocytes # (auto) 0.03 K/uL (0.00-0.02); Immature Granulocytes % (auto) 0.3 %; Lymphocytes # (auto) 1.86 K/uL (1.2-3.4); Mean Corpuscular Hgb Conc 36.8 g/dL (32-36); Mean Corpuscular Volume 85.7 fL (80-100); Mean Platelet Volume 9.8 fL (7.4-10.4); Monocytes # (auto) 0.63 K/uL (0.11-0.59); Monocytes % (auto) 5.8 %; Neutrophils # (auto) 6.84 K/uL (1.4-6.5); Neutrophils % (auto) 62.4 %; Platelet Count 326 K/uL (130-400); RDW Coefficient of Variation 13.2 % (11.5-14.5); RDW Standard Deviation 41.7 fL (36.4-46.3); Red Blood Count 4.91 M/uL (4.2-5.4); White Blood Count 10.94 K/uL (4.8-10.8)
[2018-07-05 00:02] LABS: Alanine Aminotransferase 33 U/L (12-78); Albumin Level 3.9 gm/dl (3.4-5.0); Aspartate Aminotransferase 15 U/L (15-37); BUN Creatinine Ratio 22.5 (10-20); Bilirubin Direct < 0.1 mg/dl (0-0.2); Blood Urea Nitrogen 19 mg/dl (7-18); Calcium 9.1 mg/dl (8.5-10.1); Carbon Dioxide 22 mmol/L (21-32); Chloride 108 mmol/L (98-107); Creatinine Clr Calc Pharmacy 71.2 ml/min; Est GFR (African American) 90.1; Est GFR (Non-African American) 77.8; Glucose 197 mg/dl (70-99); Potassium 3.9 mmol/L (3.5-5.1); Sodium 140 mmol/L (136-145)
[2018-07-05 00:04] LABS: Alkaline Phosphatase 89 U/L (45-117); Bilirubin,Total 0.3 mg/dl (0.2-1); Total Protein 7.7 gm/dl (6.4-8.2)
[2018-07-05 00:12] LABS: Appearance Urine Clear (Clear); Bilirubin Urine Negative (Negative); Blood Urine Negative (Negative); Color Urine Yellow; Glucose Urine UA Negative (Negative); Ketones Urine Trace (Negative); Leukocyte Esterase Urine Negative (Negative); Nitrite Urine Negative (Negative); Protein Urine Negative (Negative); Specific Gravity Urine 1.024 (1.000-1.030); Urobilinogen Urine Negative (Negative)
[2018-07-05] MEDS ORDERED: LORazepam 0.5 MG/1 ML VIAL IV STA (00:17)
[2018-07-05] MEDS ORDERED: ONDANSETRON INJ 2 MG/ML 2 ML VIAL IV STA (00:54)
[2018-07-05] MEDS ORDERED: SODIUM CHLORIDE 0.9% 1000ML 1,000 ML IV ONE (00:55)
--- NOTE | 2018-07-05 02:15 | History & Physical Report ---
Date of Service July 05, 2018 Assessment & Plan (1) Intractable epigastric abdominal pain: She had a significant work-up, initially began at [facility], and extended significantly at [facility] by Dr. Auguste, gastroenterology, with most recent studies NM hepatobiliary scan and MRI enterography. Pancreatic atrophy-treated at last visit with a trial of Pancrease, which she reports did improve her symptoms somewhat, but there has been some return. Duodenogastric bile reflux has been noted on imaging, and considerations for treatment with bile acid binding medications has considered after trial of pancrease. Bacterial overgrowth has also been a consideration, with a possible trial of rifaximin, after a trial of Pancrease. If an element of diabetic gastroparesis is present, a trial of treatment could be considered in the future after the above, if not done so already. We will consult Dr. Auguste. Present on Admission?: Yes (2) Duodenogastric bile reflux: Will begin a trial of cholestyramine, with first dosed now, and then twice daily with meals. Present on Admission?: Yes (3) Duodenitis: See above. Present on Admission?: Yes (4) GERD (gastroesophageal reflux disease): Continue omeprazole 20 mg p.o. daily Present on Admission?: Yes (5) Vomiting: Symptomatic treatment with Zofran 4 mg IV every 6 hours as needed. Angina prevention with the above. Present on Admission?: Yes (6) Diabetes: Continue glipizide 10 mg p.o. every morning. Placed on Accu-Cheks before meals and at bedtime with NovoLog coverage per scale Present on Admission?: Yes (7) HTN (hypertension): Continue amlodipine 5 mg p.o. daily Present on Admission?: Yes (8) Depression: Presently on venlafaxine 75 mg p.o. daily. Would consider changing to mirtazapine, as would likely help her GI symptoms as well. Present on Admission?: Yes History of Present Illness Chief Complaint: The patient presents to the emergency department with recurrent symptoms of intractable epigastric abdominal pain Primary Care Provider: Peter Angulo DO The patient is a 58-year-old female with recent admissions to [facility] from 06/25- 06/26, 06/27-06/27, and 06/28-07/01 for similar symptoms. At last admission, she had the edition of pancreatic enzymes to her regimen, due to pancreatic atrophy, and reports that she did have some improvement, but her symptoms have returned today. Allergies Allergy/AdvReac Type Severity Reaction Status Date / Time pregabalin [From Lyrica] Allergy Intermediate Agitated Verified 07/04/18 23:11 Iodinated Contrast- Oral and AdvReac Mild Vomiting Verified 07/04/18 23:11 IV Dye Home Medications Home Medications Medication Instructions Recorded Confirmed Type Premarin 0.3 mg PO DAILY 05/05/18 07/04/18 History glipizide 10 mg PO QAM 05/05/18 07/04/18 History omeprazole 20 mg PO DAILY 05/05/18 07/04/18 History venlafaxine 75 mg PO DAILY 06/25/18 07/04/18 History amlodipine 5 mg PO DAILY #30 tab 07/01/18 07/04/18 Rx [id number] [Creon] 1 cap PO AC #120 cap 07/01/18 07/04/18 Rx ergocalciferol (vitamin D2) 50,000 units PO WK 07/04/18 07/04/18 History Past Med/Surg History Medical History Diabetes (Chronic) Hyperlipidemia Hypertension Surgical History H/O shoulder surgery History of arthroplasty of left knee S/P hysterectomy Family History Other Diabetes Hypertension Social History Preferred Language: Cymraes Communication Ability: Effective 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 Beliefs That Will Affect Care: None Current Living Situation: Significant Other 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al status: employed 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: [employer] at [employer] Feels Safe at Home: Yes Safety Concerns: Feels Safe At This Time Smoking Status: Former smoker Tobacco Type: cigarettes Cigarettes Per Day: 7 Second Hand Exposure: No Hx Alcohol Use: No Hx Substance Use: No Review of Systems Review of Systems: The patient denies chest pain, palpitations, shortness of breath, dyspnea on exertion, cough, lower extremity swelling, sore throat, fevers, chills, sweats, weight change, vomiting, diarrhea, blood in urine or stool, dysuria, urinary frequency or urgency, lightheadedness, dizziness, headache, memory loss, loss of consciousness, rash, abnormal bruising or bleeding, imbalance, focal weakness, numbness or tingling in arms or legs, generalized arthralgias or myalgias, back or neck pain, or night sweats. The review of systems is otherwise negative other than for that already noted above, and at least 10 systems have been reviewed. Physical Exam Physical Exam: The patient is awake, alert and oriented 3, well developed and well nourished, normocephalic and atraumatic, lying in bed and in no acute distress. HEENT--PERRL, EOMI, mucous membranes and oropharynx normal. Neck--supple. No JVD. No bruits. Thyroid normal, trachea midline, no adenopathy. Heart--normal S1 and S2. No murmurs, rubs or gallops. Lungs--clear bilaterally, no respiratory distress, no accessory muscle use. Abdomen--normal bowel sounds and soft. Mild tenderness epigastric area. Nondistended. Extremities--no cyanosis or clubbing. No edema. There are good distal pulses b/l. Dermatologic--normal skin turgor, normal color, no abnormal lymph nodes, no rash. Neurologic--cranial nerves II through XII grossly intact. Rheumatologic--normal range of motion. Psychiatric--normal affect. Results & Data Vital Signs (Past 12 Hours) Vital Signs Temp Pulse Pulse Resp BP BP Pulse Ox 07/05/18 00:58 127/100 07/05/18 00:28 82 20 200/98 H 99 07/04/18 22:34 97.7 F 82 18 189/126 H 97 Laboratory Results Laboratory Results WBC 10.94 K/uL (4.8-10.8) H 07/04/18 23:33 RBC 4.91 M/uL (4.2-5.4) 07/04/18 23:33 Hgb 15.5 g/dL (12.0-16.0) 07/04/18 23:33 Hct 42.1 % (37-47) 07/04/18 23:33 MCV 85.7 fL (80-100) 07/04/18 23:33 MCH 31.6 pg (25-34) 07/04/18 23:33 MCHC 36.8 g/dL (32-36) H 07/04/18 23:33 RDW Std Deviation 41.7 fL (36.4-46.3) 07/04/18 23: RDW Coeff of Abbi 13.2 % (11.5-14.5) 07/04/18 23: Plt Count 326 K/uL (130-400) 07/04/18 23: MPV 9.8 fL (7.4-10.4) 07/04/18 23: Immature Gran % (Auto) 0.3 % 07/04/18 23: Neut % (Auto) 62.4 % 07/04/18 23: Lymph % (Auto) 17.0 % 07/04/18: [place] % (Auto) 5.8 % 07/04/18 23: Eos % (Auto) 14.2 % 07/04/18 23: Baso % (Auto) 0.3 % 07/04/18 23: Immature Gran # (Auto) 0.03 K/uL (0.00-0.02) H 07/04/18 23: Neut # (Auto) 6.84 K/uL (1.4-6.5) H 07/04/18 23: Lymph # (Auto) 1.86 K/uL (1.2-3.4) 07/04/18 23: [place] # (Auto) 0.63 K/uL (0.11-0.59) H 07/04/18 23: Eos # (Auto) 1.55 K/uL (0-0.5) H 07/04/18: Baso # (Auto) 0.03 K/uL (0-0.2) 07/04/18 23:33 Sodium 140 mmol/L (136-145) 07/04/18 23: Potassium 3.9 mmol/L (3.5-5.1) 07/04/18: Chloride 108 mmol/L (98-107) H 07/04/18 23:33 Carbon Dioxide 22 mmol/L (21-32) 07/04/18 23:33 Anion Gap 10.0 (3-11) 07/04/18 23: BUN 19 mg/dl (7-18) H 07/04/18 23:33 Creatinine 0.82 mg/dl (0.6-1.2) 07/04/18 23:33 Est Cr Clr Drug Dosing 71.2 ml/min 07/04/18 23:33 Est GFR ( Amer) 90.1 07/04/18 23:33 Est GFR (Non-Af Amer) 77.8 07/04/18 23:33 BUN/Creatinine Ratio 22.5 (10-20) H 07/04/18 23:33 Glucose 197 mg/dl (70-99) H 07/04/18 23:33 Lactate 1.7 mmol/L (0.4-2.0) 07/04/18 23:33 Calcium 9.1 mg/dl (8.5-10.1) 07/04/18 23:33 Magnesium 2.0 mg/dl (1.8-2.4) 07/04/18 23:33 Total Bilirubin 0.3 mg/dl (0.2-1) 07/04/18 23:33 Direct Bilirubin < 0.1 mg/dl (0-0.2) 07/04/18 23:33 AST 15 U/L (15-37) 07/04/18 23:33 ALT 33 U/L (12-78) 07/04/18 23:33 Alkaline Phosphatase 89 U/L (45-117) 07/04/18 23:33 Total Protein 7.7 gm/dl (6.4-8.2) 07/04/18 23:33 Albumin 3.9 gm/dl (3.4-5.0) 07/04/18 23:33 Lipase 86 U/L (73-393) 07/04/18 23:33 Urine Color Yellow 07/04/18 23:50 Urine Appearance Clear (Clear) 07/04/18 23:50 Urine pH 5.0 (4.5-7.5) 07/04/18 23:50 Ur Specific [place] 1.024 (1.000-1.030) 07/04/18 23:50 Urine Protein Negative (Negative) 07/04/18 23:50 Urine Glucose (UA) Negative (Negative) 07/04/18 23:50 Urine Ketones Trace (Negative) H 07/04/18 23:50 Urine Blood Negative (Negative) 07/04/18 23:50 Urine Nitrite Negative (Negative) 07/04/18 23:50 Urine Bilirubin Negative (Negative) 07/04/18 23:50 Urine Urobilinogen Negative (Negative) 07/04/18 23:50 Ur Leukocyte Esterase Negative (Negative) 07/04/18 23:50 Stl C. diff Tox B Gene Negative Cdiff Gene (Neg) 07/04/18 23:50 Diagnostic Findings [facility], [place] [phone] XRay Report Patient: ONIEL DAVISmit Date: 07/04/18 MR#: [id number]: [address] Acct ID:[id number]: [address] Date: 12/27/1943ity Zip: [place] [id number] Age: 74Location: ED Sex: F Room/Bed: Att Phy: Diagnosis: LOW PULSE RATE Melania Phy: Kavon Lovell MDService Date: 07/04/18 Fam Phy: Marcio Schuster M.D.Interpreting Phy: Kavon Herrera MD Admit Phy: Ordering Phy: Lance Shelton MD cc: ~ XR chest 1V portable CLINICAL HISTORY: 74 years-old Female presenting with Chest Pain. TECHNIQUE: Portable upright AP view of the chest was obtained. COMPARISON: None. FINDINGS: Median sternotomy wires and prosthetic aortic valve noted. Atherosclerosis of the aortic arch. Cardiac silhouette mildly enlarged. Pulmonary vascular prominence. Bronchial wall thickening may also be present. No focal opacity. No large effusion or pneumothorax. Osseous structures normal. Upper abdomen normal. IMPRESSION: 1. Cardiomegaly with volume overload and early congestive change. No asif pulmonary edema at this time. Electronically signed by: Kavon Herrera M.D. 07/04/2018 9:38 PM Dictated: 07/04/182136 Transcribed: 07/04/182136 [facility], [place] [phone] Magnetic Resonance Report Patient: OBED GOLDSTEINmit Date: 06/28/18 MR#: [id number]: [id number] Acct ID:[id number]: Date: [address] Zip: [place] [address] Age: 58Location: 4W Sex: F Room/Bed: [facility] Att Phy: Modesto Aldana, MDDiagnosis: ABD PAIN Melania Phy: Peter Angulo DOService Date: 06/29/18 Fam Phy: Interpreting Phy: Cliff Godinez Admit Phy: Ashlyn Gallegos DO Ordering Phy: Scot Auguste M.D. cc: ~ MR enterography wo/w con HISTORY: 58 years-old Female abd pain , abnl duodenum on CT acute generalized abdominal pain with recent weight loss COMPARISON: CT abdomen and pelvis 06/24/2018 TECHNIQUE: MR enterography was obtained both with and without the use of 7 mL Gadavist FINDINGS: Trace pleural effusions. Probable left renal cysts. Prior hysterectomy. Urinary bladder is unremarkable. No adnexal mass lesions. Iliac vasculature is unremarkable. The imaged solid abdominal organs appear unremarkable. Abdominal wall soft tissues are unremarkable. The bony structures are also unremarkable. There is mild gastric distention. Persistent moderate wall thickening is noted throughout the duodenum and within several loops of jejunum which appears mildly improved from comparison study. No associated small bowel obstruction, small bowel mass or focal stricture identified. Mild interloop edema about the proximal duodenum redemonstrated. No large volume ascites or drainable fluid collection. Moderate sized duodenal diverticulum. Peristalsing bowel is noted within all four quadrants of the abdomen. Colonic diverticulosis. No definite CT evidence of acute diverticulitis. The appendix is not definitively seen. There is no evidence of acute appendicitis. No sinus or fistulous tracts identified. Micrometallic artifacts noted about the left aspect of the lower abdominal wall. IMPRESSION: 1. Moderate wall thickening throughout the duodenum and jejunum appears mildly improved from 06/24/2018 suggestive of a nonspecific duodenitis/enteritis. 2. No small bowel obstruction, stricture or mass identified. 3. Colonic diverticulosis. 4. Trace pleural effusions. The above report was generated using voice recognition software. It may contain grammatical, syntax or spelling errors. Electronically signed by: Germán Godinez M.D. 06/29/2018 3:05 PM Dictated: 06/29/18 1326 Transcribed: 06/29/18 1335 Code Status & VTE Plan Code Status Full code VTE Prophylaxis Plan VTE Prophylaxis will be ordered: Yes (1) Vomiting Nausea presence: unspecified Vomiting Intractability: unspecified Vomiting type: unspecified Qualified Code(s): R11.10 - Vomiting, unspecified (2) GERD (gastroesophageal reflux disease) Esophagitis presence: esophagitis presence not specified Qualified Code(s): K21.9 - Gastro-esophageal reflux disease without esophagitis (3) Diabetes Diabetes mellitus type: type 2 Diabetes mellitus retirement insulin use: without recreation therapy aide use Diabetes mellitus complication status: without complication Qualified Code(s): E11.9 - Type 2 diabetes mellitus without complications (4) Depression Depression Type: other depression Qualified Code(s): F32.89 - Other specified depressive episodes
[2018-07-05] MEDS ORDERED: ACETAMINOPHEN 325 MG TAB PO PRN (03:01)
[2018-07-05] MEDS ORDERED: ALUMINUM/MAGNESIUM SUSP 30 ML UDC PO PRN (03:01)
[2018-07-05] MEDS ORDERED: POLYETHYLENE (MIRALAX) 17 GM PACK PO PRN (03:01)
[2018-07-05] MEDS ORDERED: GLUCAGON FOR INJ 1 MG VIAL SQ PRN (03:01)
[2018-07-05] MEDS ORDERED: GLUCOSE 40% GEL 15 GM TUBE PO PRN (03:01)
[2018-07-05] MEDS ORDERED: MAGNESIUM HYDROXIDE SUSP 30 ML UDC PO PRN (03:01)
[2018-07-05] MEDS ORDERED: GLUCOSE 10 TABS/TUBE PO PRN (03:01)
[2018-07-05] MEDS ORDERED: DEXTROSE 50% 50 ML SYRINGE IV PRN (03:01)
[2018-07-05] MEDS ORDERED: CARBOHYDRATES FOR HYPOGLYCEMIA PO PRN (03:01)
[2018-07-05] MEDS ORDERED: PANCREAZE (LIPASE 10,500U) CAP PO PRN (03:37)
--- NOTE | 2018-07-05 04:19 | Emergency Department Note ---
Entered by Rodolfo Mckeon acting as a scribe for ED Provider Note Name: Lashawn Agarwal Age: 58 Arrives Via: Triage Informant: Partner and self CC: Abdominal Pain HPI: 58 female arrives for evaluation of worsening, severe, upper abdominal pain beginning a few weeks ago. The patient's partner states the patient was admitted here recently and then discharged. She reports the patient has been taking the enzyme she was given at discharge until the past few days because the patient was too sick. The patient notes she was able to eat at home for three days before her symptoms returned and worsened. She states they go away after a few days of not eating and then return shortly after she starts eating again. The patient reports her symptoms have been intermittent for the past few years and the upper abdominal pain is new. She notes she is also experiencing severe nausea, vomiting, and diarrhea frequently. The patient states she does not take her insulin because it "makes my liver fatty and makes me require more and more insulin", and she has not been checking her sugars. She reports she does not want anymore narcotic pain medication because she was warned it could increase her inflammation. The patient notes she was at her PCP earlier today. She denies falling, recent injury, fevers, LOC, chest pain, blood in her diarrhea, black stool, urinary burning, and lower abdominal pain. ROS: See above HPI for pertinent positives & negatives. A total of 10 systems r eviewed and were otherwise negative. Past Medical History:, Diabetes, HTN, HLD, GERD, Duodenitis Past Surgical History: Hysterectomy, arthroplasty of left knee, shoulder surgery Family History: Diabetes, HTN Social History: Lives with partner. Home Medications: See Below Allergies Iodinated Contrast Dye, Pregabalin Physical: Vitals: BP 189/126, Pulse 82, Resp 18, Temp 97.7 F, O2Sat 97 Exam: GENERAL: Patient is very uncomfortable appearing, crying, and periodically laughing. EYES: No scleral icterus, unremarkable pupils. ENT: Mucous membranes moist, no nasal congestion. NECK: No masses appreciated, no meningismus, trachea is midline. RESPIRATORY: No dyspnea. Clear to auscultation and equal bilaterally. No wheeze, no rhonchi. CARDIOVASCULAR: Regular rate and rhythm. No murmurs, rubs, gallops appreciated. GASTROINTESTINAL: Abdomen soft, Patient writhers in pain even with light touch of the epigastrium, no peritonitis. Bowel sounds positive. No masses appreciated. BACK: No midline tenderness, no CVA tenderness EXTREMITIES: Normal motion all extremities, no cyanosis, no edema. NEUROLOGIC: Alert and oriented, no acute motor or sensory deficits, no focal weakness, cranial nerves grossly intact. SKIN: No jaundice, no diaphoresis. Tattooed. Bruise over the right mid-forearm that is less than 4cm. ED Course: Prior Medical Record, Triage/Nursing Notes, Medications, Allergies reviewed by Me Vital Signs: reviewed and remarkable for HTN Labs: Reviewed and unremarkable Interventions: Saline Lock, Zofran 4mg IV x 2, NSS bolus 2 L IV, Benadryl 50mg IV, Ativan 0.5mg IV Imaging: None EKG: None Consults: Dr Issa Reassessments/Times: 2325: The patient was evaluated in room C11B. A complete history and physical exam was performed. 0018: I reevaluated the patient. Her nausea is improving. She is still having pain. She is periodically kicking the bed or punching her thigh stating she is having her restless legs. I discussed that her labs were unremarkable. She states "I will not go home. I know my rights". The patient demands to see the hospitalist and be admitted immediately so her significant other may go home. 0051: I discussed the patient's case with Dr. Issa, [facility] Hospitalist. He will evaluate the patient for further management and care. Blood pressure: Elevated - Hospitalist will monitor the patient. Disposition: Hospitalization Differentials: Differential: Cholecystitis, Gallbladder disfunction, Hepatic Disfunction, Gastritis/PUD, Pancreatitis, ACS, Aortic Pathology, amongst other pathologies entertained. Medical Decision Makin yr old female with history of intractable abdominal pain arrives for 3rd time in as many weeks with return of epigastric pain. Seems she has real disease (duodenitis, reflux, etc) though also that she is quite medically non-compliant and even during my are of her is very focused on directing care she recieves. It is difficult to get a good exam on her given how she won't really let be touch abdomen, though she has normal labs and no fever thus I feel repeat imaging likely would be a little benefit at this time, especially given feeling better with above. Currently BSG is only mildly elevated despite not taking her meds, though her BP is once again quite elevated consistent with being in pain and not taking BP meds. She was discussed with hospitalist who will bring her in for further management. Impression: Intractable epigastric abdominal pain Duodenitis The scribe's documentation has been prepared under my direction and personally reviewed by me in its entirety. I confirm that the note above accurately refle cts all work, treatment, procedures, and medical decision making performed by me. Theodore Horne MD The scribe's documentation has been prepared under my direction and personally reviewed by me in its entirety. I confirm that the note above accurately reflects all work, treatment, procedures, and medical decision making performed by me. 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 [employer] Feels Safe at Home: Yes Safety Concerns: Feels Safe At This Time Smoking Status: Former smoker Tobacco Type: cigarettes Cigarettes Per Day: 7 Second Hand Exposure: No Hx Alcohol Use: No Hx Substance Use: No Results & Data Vital Signs Vital Signs - 24 hr 07/04/18 22:34 07/05/18 00:28 07/05/18 00:58 Temperature 36.5 C Temperature Source Oral Sepsis Recent Fever Within 48 Hours No Sepsis Action Taken by Nursing No Action Required Pulse Rate 82 Pulse Rate [Right] 82 Pulse Rhythm [Right] Pulse Strength [Right] Respiratory Rate 18 20 Respiratory Effort / Characteristics Non-Labored Spontaneous Non-Labored Spontaneous Respiratory Depth Normal Normal Respiratory Pattern Regular Blood Pressure 189/126 H Blood Pressure [Right Arm] 200/98 H 127/100 Blood Pressure Mean 147 Blood Pressure Mean [Right Arm] 132 109 Blood Pressure Position Sitting Blood Pressure Position [Right Arm] Lying Standing Pulse Oximetry 97 99 Oxygen Delivery Method Room Air Room Air 07/05/18 02:35 07/05/18 02:57 07/05/18 03:04 Temperature 36.9 C Temperature Source Oral Sepsis Recent Fever Within 48 Hours Sepsis Action Taken by Nursing Pulse Rate 92 H Pulse Rate [Right] 99 H Pulse Rhythm [Right] Regular Pulse Strength [Right] Normal Respiratory Rate 18 20 Respiratory Effort / Characteristics Non-Labored Spontaneous Non-Labored Spontaneous Respiratory Depth Normal Normal Respiratory Pattern Regular Regular Blood Pressure 175/100 H Blood Pressure [Right Arm] 173/99 H Blood Pressure Mean Blood Pressure Mean [Right Arm] 123 Blood Pressure Position Blood Pressure Position [Right Arm] Lying Pulse Oximetry 100 97 Oxygen Delivery Method Room Air Room Air Room Air Home Medications Current Medication List: was personally reviewed by me Laboratory Data Attestation: I reviewed the patient's lab results. Result diagrams: 07/04/18 23:33 07/04/18 23:33 Lab Results 07/04/18 07/04/18 07/04/18 Range/Units 23:33 23:33 23:33 WBC 10.94 H (4.8-10.8) K/uL RBC 4.91 (4.2-5.4) M/uL Hgb 15.5 (12.0-16.0) g/dL Hct 42.1 (37-47) % MCV 85.7 (80-100) fL MCH 31.6 (25-34) pg MCHC 36.8 H (32-36) g/dL RDW Std Deviation 41.7 (36.4-46.3) fL RDW Coeff of Abbi 13.2 (11.5-14.5) % Plt Count 326 (130-400) K/uL MPV 9.8 (7.4-10.4) fL Immature Gran % (Auto) 0.3 % Neut % (Auto) 62.4 % Lymph % (Auto) 17.0 % [place] % (Auto) 5.8 % Eos % (Auto) 14.2 % Baso % (Auto) 0.3 % Immature Gran # (Auto) 0.03 H (0.00-0.02) K/uL Neut # (Auto) 6.84 H (1.4-6.5) K/uL Lymph # (Auto) 1.86 (1.2-3.4) K/uL [place] # (Auto) 0.63 H (0.11-0.59) K/uL Eos # (Auto) 1.55 H (0-0.5) K/uL Baso # (Auto) 0.03 (0-0.2) K/uL Sodium 140 (136-145) mmol/L Potassium 3.9 (3.5-5.1) mmol/L Chloride 108 H (98-107) mmol/L Carbon Dioxide 22 (21-32) mmol/L Anion Gap 10.0 (3-11) BUN 19 H (7-18) mg/dl Creatinine 0.82 (0.6-1.2) mg/dl Est Cr Clr Drug Dosing 71.2 ml/min Est GFR ( Amer) 90.1 Est GFR (Non-Af Amer) 77.8 BUN/Creatinine Ratio 22.5 H (10-20) Glucose 197 H (70-99) mg/dl Lactate 1.7 (0.4-2.0) mmol/L Calcium 9.1 (8.5-10.1) mg/dl Magnesium 2.0 (1.8-2.4) mg/dl Total Bilirubin 0.3 (0.2-1) mg/dl Direct Bilirubin < 0.1 (0-0.2) mg/dl AST 15 (15-37) U/L ALT 33 (12-78) U/L Alkaline Phosphatase 89 (45-117) U/L Total Protein 7.7 (6.4-8.2) gm/dl Albumin 3.9 (3.4-5.0) gm/dl Lipase 86 (73-393) U/L Urine Color Urine Appearance (Clear) Urine pH (4.5-7.5) Ur Specific [place] (1.000-1.030) Urine Protein (Negative) Urine Glucose (UA) (Negative) Urine Ketones (Negative) Urine Blood (Negative) Urine Nitrite (Negative) Urine Bilirubin (Negative) Urine Urobilinogen (Negative) Ur Leukocyte Esterase (Negative) Stl C. diff Tox B Gene (Neg) 07/04/18 07/04/18 Range/Units 23:50 23:50 WBC (4.8-10.8) K/uL RBC (4.2-5.4) M/uL Hgb (12.0-16.0) g/dL Hct (37-47) % MCV (80-100) fL MCH (25-34) pg MCHC (32-36) g/dL RDW Std Deviation (36.4-46.3) fL RDW Coeff of Abbi (11.5-14.5) % Plt Count (130-400) K/uL MPV (7.4-10.4) fL Immature Gran % (Auto) % Neut % (Auto) % Lymph % (Auto) % [place] % (Auto) % Eos % (Auto) % Baso % (Auto) % Immature Gran # (Auto) (0.00-0.02) K/uL Neut # (Auto) (1.4-6.5) K/uL Lymph # (Auto) (1.2-3.4) K/uL [place] # (Auto) (0.11-0.59) K/uL Eos # (Auto) (0-0.5) K/uL Baso # (Auto) (0-0.2) K/uL Sodium (136-145) mmol/L Potassium (3.5-5.1) mmol/L Chloride (98-107) mmol/L Carbon Dioxide (21-32) mmol/L Anion Gap (3-11) BUN (7-18) mg/dl Creatinine (0.6-1.2) mg/dl Est Cr Clr Drug Dosing ml/min Est GFR ( Amer) Est GFR (Non-Af Amer) BUN/Creatinine Ratio (10-20) Glucose (70-99) mg/dl Lactate (0.4-2.0) mmol/L Calcium (8.5-10.1) mg/dl Magnesium (1.8-2.4) mg/dl Total Bilirubin (0.2-1) mg/dl Direct Bilirubin (0-0.2) mg/dl AST (15-37) U/L ALT (12-78) U/L Alkaline Phosphatase (45-117) U/L Total Protein (6.4-8.2) gm/dl Albumin (3.4-5.0) gm/dl Lipase (73-393) U/L Urine Color Yellow Urine Appearance Clear (Clear) Urine pH 5.0 (4.5-7.5) Ur Specific [place] 1.024 (1.000-1.030) Urine Protein Negative (Negative) Urine Glucose (UA) Negative (Negative) Urine Ketones Trace H (Negative) Urine Blood Negative (Negative) Urine Nitrite Negative (Negative) Urine Bilirubin Negative (Negative) Urine Urobilinogen Negative (Negative) Ur Leukocyte Esterase Negative (Negative) Stl C. diff Tox B Gene Negative Cdiff Gene (Neg) Administered Medications Discontinued Medications Diphenhydramine HCl (Benadryl) 50 mg IV NOW STA Stop: 07/04/18 23:35 Last Admin: 07/04/18 23:44 Dose: 50 mg Documented by: [id number] Acetaminophen (Ofirmev) 1,000 mg in 100 mls @ 400 mls/hr IV NOW STA Stop: 07/04/18 23:48 Last Infusion: 07/05/18 00:22 Dose: 0 mls/hr Documented by: [id number] Admin: 07/04/18 23:44 Dose: 400 mls/hr Documented by: [id number] Sodium Chloride (Nss 1000ml) 1,000 mls @ 999 mls/hr IV .Q1H1M ONE Stop: 07/05/18 00:34 Last Infusion: 07/05/18 00:55 Dose: 0 mls/hr Documented by: [id number] Admin: 07/04/18 23:44 Dose: 999 mls/hr Documented by: [id number] Lorazepam (Ativan) 0.5 mg in 1 mls @ 1 mls/min IV NOW STA Stop: 07/05/18 00:18 Last Admin: 07/05/18 00:24 Dose: 1 mls/min Documented by: [id number] Sodium Chloride (Nss 1000ml) 1,000 mls @ 999 mls/hr IV .Q1H1M ONE Stop: 07/05/18 01:55 Last Infusion: 07/05/18 02:04 Dose: 0 mls/hr Documented by: [id number] Admin: 07/05/18 01:00 Dose: 999 mls/hr Documented by: [id number] Ondansetron HCl (Zofran) 4 mg IV NOW STA Stop: 07/04/18 23:35 Last Admin: 07/04/18 23:44 Dose: 4 mg Documented by: [id number] Ondansetron HCl (Zofran) 4 mg IV NOW STA Stop: 07/05/18 00:55 Last Admin: 07/05/18 01:00 Dose: 4 mg Documented by: [id number] Blood Pressure Blood Pressure Findings: Elevated blood pressure Blood Pressure Disposition: further management by hospitalist Discharge Plan Visit Data *Final* Discharge Date/Time: 07/05/18 02:35 Chief Complaint: Abdominal Pain Stated Complaint: ABD. PAIN, VOMITING, DIARRHEA, PANCREAS ISSUE ED Provider: Theodore Horne Discharge Problem: Intractable epigastric abdominal pain, Duodenitis Patient Disposition: Admitted As Inpatient Discharge Instructions Interventions: ED Discharge Assessment Last Done: 07/05/18 02:35 The scribe's documentation has been prepared under my direction and personally reviewed by me in its entirety. I confirm that the note above accurately reflects all work, treatment, procedures, and medical decision making performed by me.
[2018-07-05] MEDS: PANCREAZE (LIPASE 10,500U) CAP PO SCH ×3 (09:20→17:07)
[2018-07-05] MEDS: glipiZIDE ER 2.5 MG TABCR PO SCH (09:21)
[2018-07-05] MEDS: VENLAFAXINE HCL XR 75 MG CAPXR PO SCH (09:21)
[2018-07-05] MEDS: ESTROGENS, CONJUGATED 0.3 MG TAB PO SCH (09:22)
[2018-07-05] MEDS: PANTOprazole 40 MG TAB PO SCH (09:22)
[2018-07-05] MEDS: AMLODIPINE BESYLATE 5 MG TAB PO SCH (09:22)
[2018-07-05] MEDS: INSULIN ASPART 100 UNITS/ML 3 ML PEN SC SCH ×4 (09:57→21:40)
[2018-07-05] MEDS: CHOLESTYRAMINE LIGHT 4 GM PKT PO SCH ×2 (11:02→21:41)
--- NOTE | 2018-07-05 15:39 | Gastrointestinal Consultation ---
Date of Consultation July 05, 2018 Assessment & Plan (1) Vomiting: History of Present Illness Reason for Consultation: n/v, diarrhea Requesting Physician: Dr Peter Oviedo Attending Physician: Peter Oviedo, History of Present Illness CC n/v, diarrhea HPI Pt seen by me in GI consult 06/25/18 and reviewed data since then including [facility] data. Noted at [facility] 08/2017 EGD normal exam and random bx done no reports and colo 08/2017 solitary ulcer ileum, mild congestion entire colon, sigmoid diverticulosis, internal hemorrhoids--biopsies done but no reports. EGD by Dr Auguste 06/27/18 duodenal diverticulum otherwise normal exam to 3rd portion of duodenum with path of duodenumm nonspecific reactive changes. HiDA with EF 06/28 50% with enterogastric reflux. MR enterography 06/29 moderately thickened duodenum and jejunum improved vs 06/24/18 CT a/p. urine PBG to look for porphyria 06/29/18 was normal. 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 She was change from lisinopril to amlodipine (I am assuming because of angioedema potential of lisinopril but amlodipine can do it) and was on that 3 days most recent admit but not on it at home for 2 days. This is the third admit since 06/25/18 with last one ending 07/01/18. She was readmitted for n/v and diarrhea. CBC and CMP and Lipase on admit nonrevealing. Allergies Allergy/AdvReac Type Severity Reaction Status Date / Time pregabalin [From Lyrica] Allergy Intermediate Agitated Verified 07/04/18 23:11 Iodinated Contrast- Oral and AdvReac Mild Vomiting Verified 07/04/18 23:11 IV Dye Home Medications Home Medications Medication Instructions Recorded Confirmed Type Premarin 0.3 mg PO DAILY 05/05/18 07/04/18 History glipizide 10 mg PO QAM 05/05/18 07/04/18 History omeprazole 20 mg PO DAILY 05/05/18 07/04/18 History venlafaxine 75 mg PO DAILY 06/25/18 07/04/18 History amlodipine 5 mg PO DAILY #30 tab 07/01/18 07/04/18 Rx [id number] [Creon] 1 cap PO AC #120 cap 07/01/18 07/04/18 Rx ergocalciferol (vitamin D2) 50,000 units PO WK 07/04/18 07/04/18 History Patient History Medical History Diabetes (Chronic) Hyperlipidemia Hypertension Surgical History H/O shoulder surgery History of arthroplasty of left knee S/P hysterectomy Family History Other Diabetes Hypertension Social History Preferred Language: Lao Communication Ability: Effective 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 Required: No Beliefs That Will Affect Care: None Current Living Situation: Significant Other 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al status: employed 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 [employer] Feels Safe at Home: Yes Safety Concerns: Feels Safe At This Time Smoking Status: Former smoker Tobacco Type: cigarettes Cigarettes Per Day: 7 Second Hand Exposure: No Hx Alcohol Use: No Hx Substance Use: No Review of Systems Review of Systems: All systems reviewed & are unremarkable except as noted in HPI & below Physical Exam Constitutional: WD/WN, vitals as above Eyes: PERRL, conjunctivae normal, anicteric sclerae Neck: normal visual inspection and trachea midline Respiratory: normal respiratory effort, lungs clear to auscultation Cardiovascular: RRR, no murmur, no edema Gastrointestinal (Abdomen): normal bowel sounds, soft, nontender, no hepatosplenomegaly Neurologic: PERRL, EOMI, accommodation nl, no face palsy, no dysarthria Psychiatric: A+Ox3, euthymic affect Results & Data Vital Signs (Past 12 Hours) Vital Signs Temp Pulse Resp BP Pulse Ox 07/05/18 08:13 36.8 C 111 H 16 117/81 94 (1) Vomiting Nausea presence: unspecified Vomiting Intractability: unspecified Vomiting type: unspecified Qualified Code(s): R11.10 - Vomiting, unspecified
[2018-07-05] MEDS: NSS + 20MEQ KCL 20 MEQ/1,000 ML BAG IV SCH (17:36)
[2018-07-05] MEDS: ACETAMINOPHEN 65 ML IV PRN (22:10)
[2018-07-06] MEDS: NSS + 20MEQ KCL 20 MEQ/1,000 ML BAG IV SCH ×3 (03:48→23:53)
[2018-07-06 06:04] LABS: Basophils # (auto) 0.01 K/uL (0-0.2); Basophils % (auto) 0.1 %; Eosinophils # (auto) 3.14 K/uL (0-0.5); Eosinophils % (auto) 35.4 %; Hematocrit (blood only) 39.6 % (37-47); Hemoglobin 14.3 g/dL (12.0-16.0); Immature Granulocytes # (auto) 0.02 K/uL (0.00-0.02); Immature Granulocytes % (auto) 0.2 %; Lymphocytes # (auto) 2.08 K/uL (1.2-3.4); Lymphocytes % (auto) 23.4 %; Mean Corpuscular Hgb Conc 36.1 g/dL (32-36); Mean Platelet Volume 9.6 fL (7.4-10.4); Monocytes # (auto) 0.43 K/uL (0.11-0.59); Monocytes % (auto) 4.8 %; Neutrophils % (auto) 36.1 %; Platelet Count 301 K/uL (130-400); RDW Coefficient of Variation 13.3 % (11.5-14.5); RDW Standard Deviation 42.4 fL (36.4-46.3); Red Blood Count 4.55 M/uL (4.2-5.4); White Blood Count 8.88 K/uL (4.8-10.8)
[2018-07-06 06:34] LABS: Albumin Level 3.1 gm/dl (3.4-5.0); BUN Creatinine Ratio 14.4 (10-20); Calcium 8.4 mg/dl (8.5-10.1); Creatinine Clr Calc Pharmacy 89.3 ml/min; Est GFR (African American) 111.3; Potassium 3.8 mmol/L (3.5-5.1)
[2018-07-06 06:44] LABS: Bilirubin,Total 0.4 mg/dl (0.2-1); Globulin 3.1 gm/dl (2.5-4.0); T4 Free Thyroxine 0.89 ng/dl (0.8-1.6); Total Protein 6.2 gm/dl (6.4-8.2)
[2018-07-06] MEDS: ONDANSETRON INJ 2 MG/ML 2 ML VIAL IV PRN ×2 (12:44→18:31)
[2018-07-06] MEDS: INSULIN ASPART 100 UNITS/ML 3 ML PEN SC SCH ×4 (12:46→20:39)
--- NOTE | 2018-07-06 12:54 | Nuclear Medicine Report ---
NM gastric emptying study HISTORY: Nausea. Vomiting. vomiting, rule out gastroparesis COMPARISON: None. TECHNIQUE: Following the oral administration of 1 mCi of technetium 99m sulfur colloid in egg sandwic h and 8 ounces of water, static abdominal images are obtained anteriorly and posteriorly at 0 minutes , 1 hour, 2 hour, and 4 hour time intervals. Gastric emptying was calculated utilizing the geometric mean method. FINDINGS: There is approximately 69 % activity remaining at the 1 hour time interval (normal is less than 90%), 25 % remaining at the 2 hour time interval (normal is less than 60%), and 5 % activity rem aining at the 4 hour time interval (normal is less than 10%). IMPRESSION: No evidence for delayed gastric emptying. The above report was generated using voice recognition software. It may contain grammatical, syntax or spelling errors. Electronically signed by: Wayne Tang M.D. 07/06/2018 12:53 PM
[2018-07-06] MEDS ORDERED: METOCLOPRAMIDE HCL INJ 5 MG/ML 2 ML VIAL IV STA (12:57)
[2018-07-06] MEDS: ACETAMINOPHEN 65 ML IV PRN (13:02)
[2018-07-06] MEDS: PANTOprazole 40 MG TAB PO SCH (13:03)
[2018-07-06] MEDS: AMLODIPINE BESYLATE 5 MG TAB PO SCH (13:03)
[2018-07-06] MEDS: PANCREAZE (LIPASE 10,500U) CAP PO SCH ×3 (13:03→16:43)
[2018-07-06] MEDS: ESTROGENS, CONJUGATED 0.3 MG TAB PO SCH (13:04)
[2018-07-06] MEDS: glipiZIDE ER 2.5 MG TABCR PO SCH (13:04)
[2018-07-06] MEDS: VENLAFAXINE HCL XR 75 MG CAPXR PO SCH (13:04)
[2018-07-06] MEDS: CHOLESTYRAMINE LIGHT 4 GM PKT PO SCH ×2 (13:04→20:48)
[2018-07-06] MEDS: KETOROLAC 30 MG/ML VIAL IV PRN ×2 (13:21→18:33)
--- NOTE | 2018-07-06 16:31 | Gastroenterology Progress Note ---
Date of Service July 06, 2018 Assessment & Plan (1) Abdominal pain: no explanaton for symptoms. Discussed with patient who agress [facility] tertiary transfer. I feel a doulble balloon enteroscopy is in order to look at SB pathology that seem recurent on CT/MR. Discussed with DR Oviedo SB thickening--recommend tertiary center transfer. Subjective cc f/u n/v, abd pain HPI Gastric empty study neg. TSh,FT4 normal. Cortisol high not low so no expl anation for symptoms. She had recurrent n/v and epi pain post eating some solid food today Physical Exam Respiratory: normal respiratory effort, lungs clear to auscultation Cardiovascular: RRR, no murmur, no edema Gastrointestinal (Abdomen): pos bs, soft, mild epi guardng but no rebound Neurologic: PERRL, EOMI, accommodation nl, no face palsy, no dysarthria Psychiatric: A+Ox3, euthymic affect Results & Data Vital Signs (Past 12 Hours) Vital Signs Temp Pulse Resp BP Pulse Ox 07/06/18 15:32 36.3 C L 75 18 114/70 95 07/06/18 07:30 36.6 C 80 20 139/82 97 (1) Abdominal pain Abdominal location: generalized Qualified Code(s): R10.84 - Generalized abdominal pain
--- NOTE | 2018-07-06 16:43 | Discharge Summary ---
Date of Service July 07, 2018 Admission HPI Per Admitting Provider The patient is a 58-year-old female with recent admissions to [facility] from 06/25-06/26, 06/27-06/27, and 06/28-07/01 for similar symptoms. At last admission, she had the edition of pancreatic enzymes to her regimen, due to pancreatic atrophy, and reports that she did have some improvement, but her symptoms have returned today. Principal Diagnosis Intractable nausea and vomiting, inflammation of jejunum and ileum Discharge Exam Constitutional WD/WN, vitals as above Eyes PERRL, conjunctivae normal, anicteric sclerae ENMT external ear and nose normal, oropharynx normal Neck trachea midline, no thyromegaly Respiratory normal respiratory effort, lungs clear to auscultation Cardiovascular RRR, no murmur, no edema Gastrointestinal (Abdomen) Inspection/Auscultation: abdomen normal to inspection and normal bowel sounds; abdomen not distended Percussion/Palpation: + abdomen tender (epigastric, mild TTP) and abdomen soft; no guarding, abdomen not rigid, no hepatosplenomegaly and no abdominal mass Musculoskeletal no cyanosis or clubbing, extremities motor strength 5/5 Skin no rashes, warm and dry Neurologic patellar DTR's 2+ bilat, sensation intact and PERRL, EOMI, accommodation nl, no face palsy, no dysarthria Psychiatric Orientation: alert and oriented x 3 Mood: + depressed mood and + irritable mood Lymphatic no cervical or axillary lymphadenopathy Discharge Data Allergies Allergy/AdvReac Type Severity Reaction Status Date / Time pregabalin [From Lyrica] Allergy Intermediate Agitated Verified 07/04/18 23:11 Iodinated Contrast- Oral and AdvReac Mild Vomiting Verified 07/04/18 23:11 IV Dye Consultations 07/05/18 00:20 ED Decision to Admit Stat 07/05/18 03:01 Consult Gastroenterology Routine Hospital Course (1) Intractable epigastric abdominal pain: She had a significant work-up, initially began at [facility], and extended significantly at [facility] by Dr. Auguste, gastroenterology, with most recent studies NM hepatobiliary scan and MRI enterography. CT abdomen/pelvis showed inflammtion of duodenum and jejunum on 06/24 EGD did not show any abnormalities on 06/27 HIDA was normal for GB ejection and filling, it did show significant bile reglux MR enterography showed inflammation in the jejunum and ileum, this was on 06/29 Pancreatic atrophy-treated at last visit with a trial of Pancrease, which she reports did improve her symptoms somewhat, but then they returned Duodenogastric bile reflux has been noted on imaging, and considerations for treatment with bile acid binding medications has considered after trial of pancrease. started on Cholestyramine since admission, not helping much, stools are like "jelly" consistency Bacterial overgrowth has also been a consideration, with a possible trial of rifaximin, after a trial of Pancrease. plans to test with breath test as outpatient Gastroparesis considered, NM gastric emptying study done on 07/06, normal Angioedema of the bowels considered, SMILEY inhibitor held, not improving symptoms TSH and T4 normal, Cortisol not low Dr. Harris recommends transfer to tertiary care for balloon enteroscopy (2) Duodenogastric bile reflux: Will begin a trial of cholestyramine, not really helping with diarrhea Phenergan has helped her nausea and vomiting more than Zofran and Reglan, would continue to use Phenergan (3) Duodenitis: See above. GI recommends balloon enteroscopy because on EGD here on 06/27 there was no abnormality seen, biopsies normal (4) GERD (gastroesophageal reflux disease): Continue omeprazole 20 mg p.o. daily (5) Vomiting: Symptomatic treatment with Zofran 4 mg IV every 6 hours as needed. Phenergan helps the most (6) Diabetes: Placed on Accu-Cheks before meals and at bedtime with NovoLog coverage per scale (7) HTN (hypertension): Continue amlodipine 5 mg p.o. daily (8) Depression: Presently on venlafaxine 75 mg p.o. daily. Total Time Total Time Spent Total Time Spent (In Minutes): 40 minutes Total Time Includes: Examination of the Patient, Discharge Planning, Medication Reconciliation and Communication With Other Providers (DR. Vasquez at [facility], Dr. Harris) Discharge Plan Discharge Items Patient Disposition: Transfer Acute Care Hospital Reason For Visit: INTRACTABLE ABD PAIN, DUODENITIS Discharge Diagnosis: Inflammation of jejunum and ileum Intractable vomiting and diarrhea Condition: Fair Discharge Goals: Diagnostic testing Specific Goals: balloon enteroscopy Activity: Resume your previous activity Non-emergency contact: Primary Care Provider and Gristmill Operator Call non-emergency contact if: you have any medication questions, your symptoms worsen, your pain is not controlled and you have a fever Follow-up/Referrals: Peter Angulo DO [Primary Care Provider] - Diet: Low Fiber Addtl Provider Instructions: See discharge summary for info transferring for balloon enteroscopy at the recommendation of our Gristmill Operator Prescriptions: Continued amlodipine 5 mg tablet 5 mg PO DAILY Qty: 30 RF: 2 Creon 12,000-38,000 -60,000 unit capsule,delayed release(DR/EC) 1 cap PO AC Qty: 120 RF: 2 ergocalciferol (vitamin D2) 50,000 unit capsule 50,000 units PO WK RF: 0 glipizide 10 mg tablet extended release 24hr 10 mg PO QAM RF: 0 omeprazole 20 mg capsule,delayed release(DR/EC) 20 mg PO DAILY RF: 0 Premarin 0.3 mg tablet 0.3 mg PO DAILY RF: 0 venlafaxine 75 mg capsule,extended release 24hr 75 mg PO DAILY RF: 0 Stand-Alone Forms: Call Back Authorization, [facility] Discharge Orders: Discharge Order (Routine); Ordered 07/07/18 Ordered By: Peter Oviedo Admission Data Admit Date/Time: 07/05/18 02:14 Attending Provider: Peter Oviedo Admit Provider: Jordy Issa Primary Care Provider: Peter Angulo Other Providers: Jordy Issa ; Scot Auguste Service: Medical
[2018-07-06] MEDS ORDERED: SIMETHICONE 80 MG CHEW PO PRN (18:15)
[2018-07-06] MEDS ORDERED: HYDROmorphone INJ 0.5 MG/0.5 ML SYR IV STA (21:42)
[2018-07-06] MEDS: PROMETHAZINE HCL 6.25 MG in SODIUM CHLORIDE 0.9% 50 ML IV PRN (23:51)
--- NOTE | 2018-07-07 00:37 | Hospitalist Progress Note ---
Date of Service July 06, 2018 Assessment & Plan (1) Intractable epigastric abdominal pain: She had a significant work-up, initially began at [facility], and extended significantly at [facility] by Dr. Auguste, gastroenterology, with most recent studies NM hepatobiliary scan and MRI enterography. 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 Duodenogastric bile reflux has been noted on imaging, and considerations for treatment with bile acid binding medications has considered after trial of pancrease. started on Cholestyramine since admission, not helping much, stools are like "jelly" consistency Bacterial overgrowth has also been a consideration, with a possible trial of rifaximin, after a trial of Pancrease. Gastroparesis considered, NM gastric emptying study done today, normal Angioedema of the bowels considered, SMILEY inhibitor held, not improving symptoms Dr. Harris [place] [facility] [place] (2) Duodenogastric bile reflux: Will begin a trial of cholestyramine not helping symptoms at all, likely stop tomorrow (3) Duodenitis: unclear etiology Dr. Harris recommends balloon enteroscopy at [place] (4) GERD (gastroesophageal reflux disease): Continue omeprazole 20 mg p.o. daily, still with bile and metalic taste in mouth (5) Vomiting: Symptomatic treatment with Zofran 4 mg IV every 6 hours as needed. Angina prevention with the above. (6) Diabetes: Placed on Accu-Cheks before meals and at bedtime with NovoLog coverage per scale (7) HTN (hypertension): Continue amlodipine 5 mg p.o. daily BP better (8) Depression: Presently on venlafaxine 75 mg p.o. daily. Subjective patient still with epigastric pain, weird taste in mouth like alkaline and bile after she eats vomited this morning completed gastric emptying study, was negative for gastroparesis checked TSH and T4 level this morning, normal Cortisol very slightly high which rules out adrenal insufficiency the Pancreas did not work at home discussed with Dr. Harris, he recommends transfer to tertiary care patient prefers [facility] could not get transferred this evening, will get her there first thing tomorrow morning Review of Systems Review of Systems: All systems reviewed & are unremarkable except as noted in HPI & below Constitutional: + fatigue, + weakness and + weight loss; no fever and no sweats Respiratory: no cough and no dyspnea Cardiovascular: no chest pain, no palpitations and no edema Gastrointestinal: + abdominal pain, + belching, + bloating, + early satiety, + heartburn, + nausea, + vomiting, + cramping and + diarrhea/loose stools; no constipation and no blood in stools Physical Exam Constitutional: WD/WN, vitals as above Eyes: PERRL, conjunctivae normal, anicteric sclerae ENMT: external ear and nose normal, oropharynx normal Neck: trachea midline, no thyromegaly Respiratory: normal respiratory effort, lungs clear to auscultation Cardiovascular: RRR, no murmur, no edema Gastrointestinal (Abdomen): Inspection/Auscultation: abdomen normal to inspection and normal bowel sounds; abdomen not distended Percussion/Palpation: + abdomen tender (epigastric, mild TTP) and abdomen soft; no guarding, abdomen not rigid, no hepatosplenomegaly and no abdominal mass Musculoskeletal: no cyanosis or clubbing, extremities motor strength 5/5 Skin: no rashes, warm and dry Neurologic: patellar DTR's 2+ bilat, sensation intact and PERRL, EOMI, accommodation nl, no face palsy, no dysarthria Psychiatric: Orientation: alert and oriented x 3 Mood: + depressed mood and + irritable mood Lymphatic: no cervical or axillary lymphadenopathy Results & Data Vital Signs (Past 12 Hours) Vital Signs Temp Pulse Resp BP Pulse Ox 07/06/18 23:00 36.6 C 74 20 166/75 H 95 07/06/18 15:32 36.3 C L 75 18 114/70 95 Laboratory Results Laboratory Results - last 24 hr 07/06/18 07/06/18 07/06/18 05:50 05:50 05:50 WBC 8.88 RBC 4.55 Hgb 14.3 Hct 39.6 MCV 87.0 MCH 31.4 MCHC 36.1 H RDW Std Deviation 42.4 RDW Coeff of Abbi 13.3 Plt Count 301 MPV 9.6 Immature Gran % (Auto) 0.2 Neut % (Auto) 36.1 Lymph % (Auto) 23.4 [place] % (Auto) 4.8 Eos % (Auto) 35.4 Baso % (Auto) 0.1 Immature Gran # (Auto) 0.02 Neut # (Auto) 3.20 Lymph # (Auto) 2.08 [place] # (Auto) 0.43 Eos # (Auto) 3.14 H Baso # (Auto) 0.01 Sodium 140 Potassium 3.8 Chloride 111 H Carbon Dioxide 22 Anion Gap 7.0 BUN 10 D Creatinine 0.66 Est Cr Clr Drug Dosing 89.3 Est GFR ( Amer) 111.3 Est GFR (Non-Af Amer) 96.0 BUN/Creatinine Ratio 14.4 Glucose 169 H POC Glucose Calcium 8.4 L Total Bilirubin 0.4 AST 11 L ALT 26 Alkaline Phosphatase 73 Total Protein 6.2 L Albumin 3.1 L Globulin 3.1 Albumin/Globulin Ratio 1.0 TSH 2.850 Free T4 0.89 Cortisol AM Sample Cancelled 07/06/18 07/06/18 07/06/18 07:34 11:43 16:43 WBC RBC Hgb Hct MCV MCH MCHC RDW Std Deviation RDW Coeff of Abbi Plt Count MPV Immature Gran % (Auto) Neut % (Auto) Lymph % (Auto) [place] % (Auto) Eos % (Auto) Baso % (Auto) Immature Gran # (Auto) Neut # (Auto) Lymph # (Auto) [place] # (Auto) Eos # (Auto) Baso # (Auto) Sodium Potassium Chloride Carbon Dioxide Anion Gap BUN Creatinine Est Cr Clr Drug Dosing Est GFR ( Amer) Est GFR (Non-Af Amer) BUN/Creatinine Ratio Glucose POC Glucose 171 H 170 H Calcium Total Bilirubin AST ALT Alkaline Phosphatase Total Protein Albumin Globulin Albumin/Globulin Ratio TSH Free T4 Cortisol AM Sample 24.16 H 07/06/18 20:25 WBC RBC Hgb Hct MCV MCH MCHC RDW Std Deviation RDW Coeff of Abbi Plt Count MPV Immature Gran % (Auto) Neut % (Auto) Lymph % (Auto) [place] % (Auto) Eos % (Auto) Baso % (Auto) Immature Gran # (Auto) Neut # (Auto) Lymph # (Auto) [place] # (Auto) Eos # (Auto) Baso # (Auto) Sodium Potassium Chloride Carbon Dioxide Anion Gap BUN Creatinine Est Cr Clr Drug Dosing Est GFR ( Amer) Est GFR (Non-Af Amer) BUN/Creatinine Ratio Glucose POC Glucose 143 H Calcium Total Bilirubin AST ALT Alkaline Phosphatase Total Protein Albumin Globulin Albumin/Globulin Ratio TSH Free T4 Cortisol AM Sample Diagnostic Findings NM gastric emptying study HISTORY: Nausea. Vomiting. vomiting, rule out gastroparesis COMPARISON: None. TECHNIQUE: Following the oral administration of 1 mCi of technetium 99m sulfur colloid in egg sandwich and 8 ounces of water, static abdominal images are obtained anteriorly and posteriorly at 0 minutes, 1 hour, 2 hour, and 4 hour time intervals. Gastric emptying was calculated utilizing the geometric mean method. FINDINGS: There is approximately 69 % activity remaining at the 1 hour time interval (normal is less than 90%), 25 % remaining at the 2 hour time interval (normal is less than 60%), and 5 % activity remaining at the 4 hour time interval (normal is less than 10%). IMPRESSION: No evidence for delayed gastric emptying. Medications Administered Current Inpatient Medications Acetaminophen (Tylenol) 650 mg PO Q4H PRN PRN Reason: pain/fever Stop: 08/04/18 03:00 Al Hydrox/Mg Hydrox/Simethicone (Maalox) 30 ml PO Q6H PRN PRN Reason: Dyspepsia Stop: 08/04/18 03:00 Last Admin: 07/06/18 18:37 Dose: 30 ml Documented by: Amlodipine Besylate (Norvasc) 5 mg PO DAILY MADELEINE Stop: 08/04/18 08:59 Last Admin: 07/06/18 13:03 Dose: 5 mg Documented by: Lipase/Protease/Amylase (Pancreaze (Lipase 10,500u)) 1 cap PO AC MADELEINE Stop: 08/04/18 07:29 Last Admin: 07/06/18 16:43 Dose: 1 cap Documented by: Lipase/Protease/Amylase (Pancreaze (Lipase 10,500u)) 1 cap PO TIDM PRN PRN Reason: SNACKS Stop: 08/04/18 03:36 Cholestyramine Resin (Questran) 4 gm PO BID@1000,2200 MADELEINE Stop: 08/04/18 09:59 Last Admin: 07/06/18 20:48 Dose: 4 gm Documented by: Dextrose (Dextrose 50%) 25 - 50 ml IV UD PRN; Protocol PRN Reason: Hypoglycemia Protocol Stop: 08/04/18 03:00 Estrogens Conjugated (Premarin) 0.3 mg PO DAILY MADELEINE Stop: 08/04/18 08:59 Last Admin: 07/06/18 13:04 Dose: 0.3 mg Documented by: Glipizide (Glucotrol Extended Rel) 10 mg PO QAM MADELEINE Stop: 08/04/18 08:59 Last Admin: 07/06/18 13:04 Dose: 10 mg Documented by: Glucagon (Glucagen) 1 mg SQ UD PRN; Protocol PRN Reason: Hypoglycemia Protocol Stop: 08/04/18 03:00 Glucose (Dex4 Glucose) 4 - 8 tabs PO UD PRN; Protocol PRN Reason: Hypoglycemia Protocol Stop: 08/04/18 03:00 Glucose (Glucose 40%) 15 - 30 gm PO UD PRN; Protocol PRN Reason: Hypoglycemia Protocol Stop: 08/04/18 03:00 Potassium Chloride/Sodium Chloride (Normal Saline W/20 Meq Kcl) 20 meq in 1,000 mls @ 100 mls/hr IV .Q10H MADELEINE Stop: 08/04/18 16:59 Last Admin: 07/06/18 23:53 Dose: 100 mls/hr Documented by: Acetaminophen (Ofirmev) 65 mls @ 200 mls/hr IV Q6H PRN PRN Reason: Pain Stop: 08/04/18 21:44 Last Infusion: 07/06/18 13:17 Dose: Infused Documented by: Promethazine HCl 6.25 mg/ (Sodium Chloride) 50.25 mls @ 201 mls/hr IV Q6H PRN PRN Reason: Nausea And Vomiting Stop: 08/05/18 23:18 Last Admin: 07/06/18 23:51 Dose: 201 mls/hr Documented by: Insulin Aspart (Novolog Flexpen) 0 units SC ACHS [facility] Stop: 08/04/18 07:29 Last Admin: 07/06/18 20:39 Dose: Not Given Documented by: Ketorolac Tromethamine (Toradol) 30 mg IV Q6H PRN PRN Reason: Pain Stop: 07/11/18 12:56 Last Admin: 07/06/18 18:33 Dose: 30 mg Documented by: Magnesium Hydroxide (Milk Of Magnesia) 30 ml PO Q6H PRN PRN Reason: Constipation Stop: 08/04/18 03:00 Miscellaneous (Carbohydrates For Hypoglycemia) 15 - 30 gm PO UD PRN PRN Reason: Hypoglycemia Treatment Stop: 08/04/18 03:00 Ondansetron HCl (Zofran) 4 mg IV Q6H PRN PRN Reason: Nausea Stop: 08/04/18 03:00 Last Admin: 07/06/18 18:31 Dose: 4 mg Documented by: Pantoprazole Sodium (Protonix) 40 mg PO DAILY MADELEINE Stop: 08/04/18 08:59 Last Admin: 07/06/18 13:03 Dose: 40 mg Documented by: Polyethylene Glycol (Miralax Powder Packet) 17 gm PO DAILY PRN PRN Reason: Constipation Stop: 08/04/18 03:00 Simethicone (Mylicon) 80 mg PO Q8H PRN PRN Reason: bloating Stop: 08/05/18 18:14 Last Admin: 07/06/18 18:30 Dose: 80 mg Documented by: Venlafaxine HCl (Effexor Extended Release) 75 mg PO DAILY MADELEINE Stop: 08/04/18 08:59 Last Admin: 07/06/18 13:04 Dose: 75 mg Documented by: (1) GERD (gastroesophageal reflux disease) Esophagitis presence: esophagitis presence not specified Qualified Code(s): K21.9 - Gastro-esophageal reflux disease without esophagitis (2) Vomiting Nausea presence: unspecified Vomiting Intractability: unspecified Vomiting type: unspecified Qualified Code(s): R11.10 - Vomiting, unspecified (3) Diabetes Diabetes mellitus type: type 2 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
[2018-07-07] MEDS: glipiZIDE ER 2.5 MG TABCR PO SCH (08:16)
[2018-07-07] MEDS: PANTOprazole 40 MG TAB PO SCH (08:16)
[2018-07-07] MEDS: VENLAFAXINE HCL XR 75 MG CAPXR PO SCH (08:16)
[2018-07-07] MEDS: AMLODIPINE BESYLATE 5 MG TAB PO SCH (08:16)
[2018-07-07] MEDS: PANCREAZE (LIPASE 10,500U) CAP PO SCH ×3 (08:16→12:51)
[2018-07-07] MEDS: ESTROGENS, CONJUGATED 0.3 MG TAB PO SCH (08:17)
[2018-07-07] MEDS: CHOLESTYRAMINE LIGHT 4 GM PKT PO SCH (08:18)
[2018-07-07] MEDS: NSS + 20MEQ KCL 20 MEQ/1,000 ML BAG IV SCH (08:18)
[2018-07-07] MEDS: PROMETHAZINE HCL 6.25 MG in SODIUM CHLORIDE 0.9% 50 ML IV PRN (08:19)
[2018-07-07] MEDS: INSULIN ASPART 100 UNITS/ML 3 ML PEN SC SCH ×2 (08:22→12:51)
[2018-07-07] MEDS ORDERED: PROMETHAZINE HCL 25 MG in SODIUM CHLORIDE 0.9% 50 ML IV ONE (16:15)
== END 2018-07-07 18:41 | disposition short-term general hospital (02) ==
LOC: ED 22:32 → 4E 22:32 → SUATTDRO 07-05 02:14 → 4E 07-05 02:35

== ENCOUNTER 2023-04-06 23:04 | Observation (INO) ==
[2023-04-06 23:13] VITALS: TEMP 97.7
[2023-04-07 00:01] LABS: Basophils # (auto) 0.03 K/uL (0.00-0.20); Basophils % (auto) 0.5 %; Eosinophils # (auto) 0.14 K/uL (0.00-0.50); Eosinophils % (auto) 2.3 %; Hemoglobin 13.9 g/dl (12.0-16.0); Immature Granulocytes # (auto) 0.01 K/uL (0.01-0.20); Immature Granulocytes % (auto) 0.2 %; Lymphocytes % (auto) 19.7 %; Mean Corpuscular Hgb Conc 33.1 g/dL (32.0-36.0); Mean Corpuscular Volume 90.7 fL (80.0-100.0); Mean Platelet Volume 10.4 fL (9.4-12.4); Monocytes # (auto) 0.54 K/uL (0.11-0.59); Monocytes % (auto) 8.9 %; Neutrophils # (auto) 4.17 K/uL (1.40-6.50); Neutrophils % (auto) 68.4 %; Platelet Count 237 K/uL (130-400); RDW Coefficient of Variation 12.3 % (11.5-14.5); RDW Standard Deviation 40.7 fL (36.4-46.3); Red Blood Count 4.63 M/uL (4.20-5.40); White Blood Count 6.09 K/ul (4.8-10.8)
[2023-04-07 00:06] LABS: Alanine Aminotransferase 37 U/L (7-52); Albumin Globulin Ratio 1.8 (0.9-2); Albumin Level 4.5 gm/dl (3.4-5.0); Alkaline Phosphatase 88 U/L (34-104); Anion Gap 8 (3-11); Aspartate Aminotransferase 30 U/L (13-39); BUN Creatinine Ratio 27.5 (10-20); Bilirubin,Total 0.6 mg/dl (0.2-1.0); Blood Urea Nitrogen 19 mg/dl (6-23); Carbon Dioxide 27 mmol/L (21-32); Chloride 104 mmol/L (98-107); Creatinine Clr Calc Pharmacy 78.8 ml/min; Est GFR (African American) 105.9 ml/min; Est GFR (Non-African American) 91.4 ml/min; Globulin 2.5 gm/dl (2.5-4.0); Glucose 108 mg/dl (70-99(Fasting)); Lipase 21 U/L (11-82); Potassium 3.9 mmol/L (3.5-5.1); Sodium 139 mmol/L (136-145)
[2023-04-07 00:13] LABS: Troponin I High Sensitivity < 2.3 pg/ml (0-14)
[2023-04-07 00:22] LABS: Adenovirus PCR Not Detected (NotDetected); Bordetella parapertussis PCR Not Detected (NotDetected); Bordetella pertussis PCR Not Detected (NotDetected); Chlamydia pneumoniae PCR Not Detected (NotDetected); Coronavirus 229E PCR Not Detected (NotDetected); Coronavirus CoV-2 (COVID19)PCR Not Detected (NotDetected); Coronavirus HKU1 PCR Not Detected (NotDetected); Coronavirus NL63 PCR Not Detected (NotDetected); Coronavirus OC43PCR Not Detected (NotDetected); Human Metapneumovirus PCR Not Detected (NotDetected); Influenza A PCR Not Detected (NotDetected); Influenza B PCR Not Detected (NotDetected); Mycoplasma pneumoniae PCR Not Detected (NotDetected); Parainfluenza Virus 1 PCR Not Detected (NotDetected); Parainfluenza Virus 2 PCR Not Detected (NotDetected); Parainfluenza Virus 3 PCR Not Detected (NotDetected); Parainfluenza Virus 4 PCR Not Detected (NotDetected); Respiratory Syncytial VirusPCR Not Detected (NotDetected); Rhinovirus/Enterovirus PCR Not Detected (NotDetected)
--- NOTE | 2023-04-07 00:48 | Emergency Department Note ---
Impression & Plan Chest pain ADMIT ED Provider Note HPI: History obtained from patient. The patient is a 63-year-old female with history of hypertension, type 2 diabetes, COPD, longstanding smoking history, presents emergency department with chief complaint of left-sided chest pain. Patient states she has had chest pain over the past several days that has been pinpoint in nature and only last several seconds at a time. Patient states however today she developed a chest "tightness" in the left side of her chest that was persistent throughout the entire day and therefore she came to the ED to be assessed. Patient also states that she has had a low-grade fever over the past week or 2, she states she had a negative home COVID test today. Patient denies any cough, denies any shortness of breath. On arrival here to the ED the patient is hemodynamically stable, she is in no acute distress on my initial assessment but does state that she still has active chest "tightness". ROS: - Per HPI Differential Diagnosis: Acute coronary syndrome, pulmonary embolism, pneumothorax, esophagitis, pleuritis, amongst other potential pathologies. *Outpatient medications and allergy history reviewed. PE: General: Alert HEENT: Normocephalic, trachea midline Eyes: Extraocular eye movement is intact, no scleral erythema Pulmonary: Clear to auscultation bilaterally, no wheezing Cardio: Regular rate and rhythm GI: Abdomen is soft to palpation : No suprapubic tenderness MSK: No evidence of trauma or malformation of the extremities, no edema Skin: No evidence of rash Neuro: Alert, no focal deficits Psychiatric: Cooperative INDEPENDENT INTERPRETATIONS: campus monitor: (As interpreted by myself): - An order was placed for continuous cardiac monitoring - Patient was noted to be in sinus rhythm with a rate of 85 EKG: (As interpreted by myself): Rate: 88 Rhythm: Normal sinus rhythm Intervals: Within normal limits ST changes: No ST elevation Time: 2315 Chest x-ray: (As interpreted by myself): No acute disease Interventions provided in ED: -Aspirin Medical Decision Making: IV was established and lab work obtained, patient was placed on court monitor. Lab work shows no leukocytosis, hemoglobin is normal, platelet count is normal, CMP does not show any critical findings, troponin is negative x 1. Urinalysis does not show any evidence of infection. Viral panel testing was obtained and is negative. EKG per my interpretation shows normal sinus rhythm without any acute ischemic changes. CT angiography of the chest was obtained and the patient does not have any evidence of pulmonary embolism on CT angiography, she has noted to have mild to moderate coronary artery calcifications. On my reassessment the patient is in no acute distress but states she still does have left-sided chest discomfort. Given the patient's multiple risk factors including type 2 diabetes, longstanding history of smoking, stated family history of coronary artery disease, hypertension, hyperlipidemia, and CT angiography findings of calcifications in the coronary arteries, I do feel she would benefit from admission for further testing. Case was discussed with the on-call hospitalist, Dr. Velazquez, the patient was placed for admission in stable condition. Patient was ordered aspirin prior to admission. Consultants/Discussions held with other healthcare providers: -Hospitalist, Dr. Velazquez Disposition discussion held by myself with: -Patient Diagnosis: 1. Chest pain, acute, nonspecific 2. Coronary artery calcifications on CT angiography 3. History of tobacco use 4. History of hypertension 5. History of type 2 diabetes 6. History of hyperlipidemia Disposition: Admission Wayne Mathew DO Emergency Medicine Past Med/Surg History Medical History (Updated 04/07/23 @ 02:50 by Wayne Mathew DO) Chronic diarrhea COPD (chronic obstructive pulmonary disease) Hyperlipidemia Hypertension Diabetes Surgical History H/O colonoscopy 08/31/17 H/O shoulder surgery right and left History of arthroplasty of left knee S/P hysterectomy Family History Mother Diabetes Brother Diabetes Other Alzheimer disease Aneurysm Dementia Hypertension Rheumatoid arthritis Social History Smoking Status: Never smoker Tobacco Type: Cigarettes Cigarettes Per Day: had quit and started now for 2 weeks; Second Hand Exposure: No; Do You Dip or Chew Tobacco: No; Hx Alcohol Use: No Hx Substance Use: No Preferred Language: Divehi Communication Ability: Effective Acute Care Certified Nursing Assistant Required: No Beliefs That Will Affect Care: None Current Living Situation: Alone 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al status: employed 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 [employer] Feels Safe at Home: Yes Assistive Devices: None Allergies Allergies Allergy/AdvReac Type Severity Reaction Status Date / Time Iodinated Contrast Media AdvReac Intermediate Vomiting Verified 04/07/23 00:50 oxycodone AdvReac Intermediate stomach Verified 04/07/23 00:50 upset pregabalin [From Lyrica] AdvReac Intermediate Agitated Verified 04/07/23 00:50 Home Meds Home Medications Medication Instructions Recorded Confirmed amlodipine 5 mg tablet 5 mg PO QAM 05/20/21 04/07/23 atorvastatin 40 mg tablet 40 mg PO DAILY 11/11/22 04/07/23 blood sugar diagnostic (OneTouch 11/11/22 03/23/23 Ultra Test strips) insulin aspart 4 - 7 unit subcut TID 03/23/23 04/07/23 (niacinamide)(U-100) 100 unit/mL(3 mL) subcutaneous pen (Fiasp FlexTouch U-100 Insulin) insulin glargine 100 unit/mL (3 32 unit subcut QAM 03/23/23 04/07/23 mL) subcutaneous pen (Lantus Solostar U-100 Insulin) blue-green algae (bulk) (Spirulina 1 ea miscellaneous DAILY 04/07/23 04/07/23 powder) ondansetron HCl 4 mg tablet 4 mg PO .Q4-6H PRN NAUSEA/VOMITING 04/07/23 04/07/23 psyllium husk 0.52 gram capsule 0.52 g PO DAILY 04/07/23 04/07/23 vortioxetine 10 mg tablet 10 mg PO QAM 04/07/23 04/07/23 (Trintellix) Previous Rx's Medication Instructions Recorded pantoprazole 40 mg tablet,delayed 40 mg PO DAILY gerd #30 tabs 06/06/21 release (Protonix) cholecalciferol (vitamin D3) 125 125 mcg PO DAILY #30 caps 06/12/22 mcg (5,000 unit) capsule chromium picolinate 400 mcg tablet 400 mcg PO DAILY #30 tabs 06/12/22 estradiol 0.01% (0.1 mg/gram) 1 g vaginal .twice weekly #1 g 06/12/22 vaginal cream zaeouq-swuusxbl-dipwrgk 2 cap PO .As Directed #630 caps 11/20/22 36,000-114,000-180,000 unit capsule,delay rel (Creon) pen needle, diabetic 32 gauge x #100 ea 12/28/22" (BD Ultra-Fine Mily Pen Needle) levothyroxine 50 mcg tablet 50 mcg PO DAILY #30 tabs 03/15/23 Results & Data (ED) Vital Signs Vital Signs - 24 hr 04/06/23 23:06 04/06/23 23:06 04/06/23 23:06 Temperature 36.5 C Temperature Source Temporal Artery Scan Pulse Rate 87 Pulse Rate [Finger] Pulse Rhythm [Finger] Pulse Strength [Finger] Respiratory Rate 14 Respiratory Effort / Characteristics Non-Labored Spontaneous Respiratory Depth Normal Normal Respiratory Pattern Blood Pressure 170/109 H Blood Pressure [Left Arm] Blood Pressure Mean 129 Blood Pressure Mean [Left Arm] Pulse Oximetry 98 98 Oxygen Delivery Method Room Air Room Air Sepsis New/Unexplained Change in Mental Status No Sepsis Action Taken by Nursing No Action Required 04/07/23 00:30 04/07/23 00:30 04/07/23 02:00 Temperature Temperature Source Pulse Rate 76 Pulse Rate [Finger] 84 63 Pulse Rhythm [Finger] Regular Pulse Strength [Finger] Normal Respiratory Rate 18 18 19 Respiratory Effort / Characteristics Non-Labored Respiratory Depth Normal Respiratory Pattern Regular Blood Pressure Blood Pressure [Left Arm] 146/90 H 129/79 Blood Pressure Mean Blood Pressure Mean [Left Arm] 108 95 Pulse Oximetry 96 96 95 Oxygen Delivery Method Room Air Room Air Sepsis New/Unexplained Change in Mental Status Sepsis Action Taken by Nursing Laboratory Data 04/06/23 23:11 04/06/23 23:11 Lab Results 04/06/23 04/06/23 04/07/23 Range/Units 23:11 23:21 01:00 WBC 6.09 (4.8-10.8) K/ul RBC 4.63 (4.20-5.40) M/uL Hgb 13.9 (12.0-16.0) g/dl Hct 42.0 (37.0-47.0) % MCV 90.7 (80.0-100.0) fL MCH 30.0 (25.0-34.0) pg MCHC 33.1 (32.0-36.0) g/dL RDW Std Deviation 40.7 (36.4-46.3) fL RDW Coeff of Abbi 12.3 (11.5-14.5) % Plt Count 237 (130-400) K/uL MPV 10.4 (9.4-12.4) fL Immature Gran % (Auto) 0.2 % Neut % (Auto) 68.4 % Lymph % (Auto) 19.7 % [place] % (Auto) 8.9 % Eos % (Auto) 2.3 % Baso % (Auto) 0.5 % Neut # (Auto) 4.17 (1.40-6.50) K/uL Lymph # (Auto) 1.20 (1.20-3.40) K/uL [place] # (Auto) 0.54 (0.11-0.59) K/uL Eos # (Auto) 0.14 (0.00-0.50) K/uL Baso # (Auto) 0.03 (0.00-0.20) K/uL Immature Gran # (Auto) 0.01 (0.01-0.20) K/uL Sodium 139 (136-145) mmol/L Potassium 3.9 (3.5-5.1) mmol/L Chloride 104 (98-107) mmol/L Carbon Dioxide 27 (21-32) mmol/L Anion Gap 8 (3-11) BUN 19 (6-23) mg/dl Creatinine 0.69 (0.6-1.2) mg/dl Est Cr Clr Drug Dosing 78.8 ml/min Est GFR ( Amer) 105.9 ml/min Est GFR (Non-Af Amer) 91.4 ml/min BUN/Creatinine Ratio 27.5 H (10-20) Glucose 108 H (70-99(Fasting)) mg/dl Calcium 10.0 (8.6-10.3) mg/dl Total Bilirubin 0.6 (0.2-1.0) mg/dl AST 30 (13-39) U/L ALT 37 (7-52) U/L Alkaline Phosphatase 88 (34-104) U/L Troponin I High Sens < 2.3 (0-14) pg/ml Total Protein 7.0 (6.0-8.3) gm/dl Albumin 4.5 (3.4-5.0) gm/dl Globulin 2.5 (2.5-4.0) gm/dl Albumin/Globulin Ratio 1.8 (0.9-2) Lipase 21 (11-82) U/L Urine Color Yellow Urine Appearance Clear (Clear) Urine pH 6.5 (4.5-7.5) Ur Specific [place] 1.015 (1.000-1.030) Urine Protein Negative (Negative) Urine Glucose (UA) Negative (Negative) Urine Ketones Negative (Negative) Urine Blood Negative (Negative) Urine Nitrite Negative (Negative) Urine Bilirubin Negative (Negative) Urine Urobilinogen Negative (Negative) Ur Leukocyte Esterase Negative (Negative) Adenovirus (PCR) Not Detected (NotDetected) B. pertussis DNA (PCR) Not Detected (NotDetected) B.parapertussis DNA PCR Not Detected (NotDetected) C. pneumoniae DNA (PCR) Not Detected (NotDetected) Coronavirus OC43 (PCR) Not Detected (NotDetected) Coronavirus HKU1 (PCR) Not Detected (NotDetected) Coronavirus 229E (PCR) Not Detected (NotDetected) SARS-CoV-2 (PCR) Not Detected (NotDetected) Coronavirus NL63 (PCR) Not Detected (NotDetected) Human Metapneumovir PCR Not Detected (NotDetected) Influenza Type A (PCR) Not Detected (NotDetected) Influenza Type B (PCR) Not Detected (NotDetected) M. pneumoniae (PCR) Not Detected (NotDetected) Parainfluenza 1 (PCR) Not Detected (NotDetected) Parainfluenza 2 (PCR) Not Detected (NotDetected) Parainfluenza 3 (PCR) Not Detected (NotDetected) Parainfluenza 4 (PCR) Not Detected (NotDetected) RSV (PCR) Not Detected (NotDetected) Entero/Rhino (PCR) Not Detected (NotDetected) Administered Medications Discontinued Medications Sodium Chloride (Nss) 1,000 mls @ 999 mls/hr IV .Q1H1M ONE Stop: 04/07/23 01:46 Last Infusion: 04/07/23 02:12 Dose: Infused Documented By: Admin: 04/07/23 00:56 Dose: 999 mls/hr Documented By: LEE ANN Ioversol (Optiray 320 125ml) 125 ml IV ONCE ONE Stop: 04/07/23 01:04 Last Admin: 04/07/23 01:03 Dose: 83 ml Documented By: SUZANNA Ondansetron HCl (Ondansetron Inj 2 Mg/Ml 2 Ml Vial) 4 mg IV NOW STA Stop: 04/07/23 00:47 Last Admin: 04/07/23 00:51 Dose: 4 mg Documented By: HB Imaging Data Radiologist's Impression: Chest CTA 04/07/23 00:45 Exam(s): CTA CHEST IV Amt: 83 ML OPTIRAY 320 EXAM: CT Angiography Chest With Intravenous Contrast CLINICAL HISTORY: Reason for exam: PE, L sided CP. TECHNIQUE: Axial computed tomographic angiography images of the chest with intravenous contrast. Automated exposure control was utilized for the study. A dose lowering technique was utilized adhering to the principles of ALARA. MIP reconstructed images were created and reviewed. COMPARISON: No relevant prior studies available. FINDINGS: Pulmonary arteries: The pulmonary arterial tree is well opacified with contrast. No pulmonary embolism is identified. Aorta: The thoracic aorta is mildly calcified but nondilated. There is no aneurysm or dissection. Lungs: Trace amount of bibasilar subsegmental atelectasis. No acute infiltrate or consolidation is seen. No pneumothorax or pleural effusion. Pleural space: See above. Heart: The heart is borderline enlarged. Mild to moderate coronary calcification is present. No pericardial effusion. No evidence of RV dysfunction. Bones/joints: Mild to moderate degenerative changes throughout the thoracic spine. No acute fracture or subluxation is seen. Soft tissues: Unremarkable. Lymph nodes: Unremarkable. No enlarged lymph nodes. IMPRESSION: 1. Trace amount of bibasilar subsegmental atelectasis. No acute infiltrate or consolidation is seen. No pneumothorax or pleural effusion. 2. The pulmonary arterial tree is well opacified with contrast. No pulmonary embolism is identified. 3. The thoracic aorta is mildly calcified but nondilated. There is no aneurysm or dissection. 4. The heart is borderline enlarged. Mild to moderate coronary calcification is present. No pericardial effusion. Electronically signed by: Doron Velazquez MD 04/07/23 02:33 AM Discharge Plan Visit Data Chief Complaint: Chest Pain Stated Complaint: CHEST PAINS, MUSCLE SORENESS ED Provider: Wayne Mathew Discharge Problem: Chest pain Forms Stand Alone Forms: My [facility] [employer] Prescriptions Prescriptions: No Action Creon 36,000-114,000- 180,000 unit capsule,delayed release(DR/EC) 2 cap PO .As Directed Qty: 630 3RF Rx Instructions: Take2 capsules with each meal and 1 capsule with each snack. (DME) pen needle, diabetic [BD Ultra-Fine Mily Pen Needle] 32 gauge x 5/32" needle See Rx Instructions .Route Qty: 100 0RF Rx Instructions: use with Lantus injection levothyroxine 50 mcg tablet 50 mcg PO DAILY Qty: 30 2RF pantoprazole [Protonix] 40 mg tablet,delayed release (DR/EC) 40 mg PO DAILY Qty: 30 11RF cholecalciferol (vitamin D3) 125 mcg (5,000 unit) capsule 125 mcg PO DAILY Qty: 30 0RF chromium picolinate 400 mcg tablet 400 mcg PO DAILY Qty: 30 0RF estradiol 0.01 % (0.1 mg/gram) cream 1 g vaginal .twice weekly Qty: 1 0RF Rx Instructions: ON HOLD atorvastatin 40 mg tablet 40 mg PO DAILY (DME) OneTouch Ultra Test Strip See Rx Instructions .Route Rx Instructions: As directed Fiasp FlexTouch U-100 Insulin 100 unit/mL (3 mL) insulin pen 4 - 7 unit subcut TID insulin glargine [Lantus Solostar U-100 Insulin] 100 unit/mL (3 mL) insulin pen 32 unit subcut QAM amlodipine 5 mg tablet 5 mg PO QAM ondansetron HCl 4 mg tablet 4 mg PO .Q4-6H PRN (Reason: NAUSEA/VOMITING) psyllium husk 0.52 gram Capsule 0.52 g PO DAILY Trintellix 10 mg tablet 10 mg PO QAM Spirulina Powder 1 ea MISCELLANEOUS DAILY Rx Instructions: DOSE 500 MG DAILY Referrals Referrals: Peter Angulo DO [Primary Care Provider] - Discharge Problem: Chest pain Qualifiers: Chest pain type: unspecified Qualified Code(s): R07.9 - Chest pain, unspecified
[2023-04-07] MEDS: ONDANSETRON INJ 2 MG/ML 2 ML VIAL IV STA (00:51)
[2023-04-07] MEDS: SODIUM CHLORIDE 0.9% 1,000 ML IV ONE (00:56)
[2023-04-07] MEDS: OPTIRAY 320 125ml IV ONE (01:03)
[2023-04-07 01:54] LABS: Appearance Urine Clear (Clear); Bilirubin Urine Negative (Negative); Blood Urine Negative (Negative); Color Urine Yellow; Glucose Urine UA Negative (Negative); Ketones Urine Negative (Negative); Leukocyte Esterase Urine Negative (Negative); Nitrite Urine Negative (Negative); Protein Urine Negative (Negative); Specific Gravity Urine 1.015 (1.000-1.030); Urobilinogen Urine Negative (Negative); pH Urine 6.5 (4.5-7.5)
--- NOTE | 2023-04-07 02:34 | CT Scan Report ---
Exam(s): CTA CHEST IV Amt: 83 ML OPTIRAY 320 EXAM: CT Angiography Chest With Intravenous Contrast CLINICAL HISTORY: Reason for exam: PE, L sided CP. TECHNIQUE: Axial computed tomographic angiography images of the chest with intravenous contrast. Automated exposure control was utilized for the study. A dose lowering technique was utilized adhering to the principles of ALARA. MIP reconstructed images were created and reviewed. COMPARISON: No relevant prior studies available. FINDINGS: Pulmonary arteries: The pulmonary arterial tree is well opacified with contrast. No pulmonary embolism is identified. Aorta: The thoracic aorta is mildly calcified but nondilated. There is no aneurysm or dissection. Lungs: Trace amount of bibasilar subsegmental atelectasis. No acute infiltrate or consolidation is seen. No pneumothorax or pleural effusion. Pleural space: See above. Heart: The heart is borderline enlarged. Mild to moderate coronary calcification is present. No pericardial effusion. No evidence of RV dysfunction. Bones/joints: Mild to moderate degenerative changes throughout the thoracic spine. No acute fracture or subluxation is seen. Soft tissues: Unremarkable. Lymph nodes: Unremarkable. No enlarged lymph nodes. IMPRESSION: 1. Trace amount of bibasilar subsegmental atelectasis. No acute infiltrate or consolidation is seen. No pneumothorax or pleural effusion. 2. The pulmonary arterial tree is well opacified with contrast. No pulmonary embolism is identified. 3. The thoracic aorta is mildly calcified but nondilated. There is no aneurysm or dissection. 4. The heart is borderline enlarged. Mild to moderate coronary calcification is present. No pericardial effusion. Electronically signed by: Doron Velazquez MD 04/07/23 02:33 AM
--- NOTE | 2023-04-07 03:23 | History & Physical Report ---
Date of Service April 07, 2023 Assessment & Plan (1) Chest pain: Plan: 63yo female with history of HTN, HLP, DM and tobacco use presents with acute left sided chest pain. Troponin x 1 is unremarkable. EKG with non-specific changes -Observation to medical with telemetry -Trend troponin -Patient may benefit from outpatient stress testing (2) Fatigue: Plan: Patient with progressive fatigue, weakness, muscle and joint pain as well as subjective fever and decreased exercise tolerance. Labs are unremarkable to include NEGATIVE Biofire, normal liver and renal function, normal electrolytes. Patient [place] [facility] [place] and reports multiple tick bites in the past. Question if her constellation of symptoms may be secondary to tick-borne illness? Would expect to see some laboratory abnormalities. -Check CRP -Check CK -Check tick-borne panel - Lyme, Anaplasmosis and Babesiosis -Check Mg and PO4 (3) Hypothyroidism: Plan: TSH within normal limits on 01/11/23 at 1.368 -Continue home Synthroid (4) Hyperlipidemia: Plan: Chronic. Stable -Continue Atorvastatin 40mg po daily -Check CK total (5) Type 2 diabetes mellitus: Plan: Poorly controlled per last HgbA1C = 15 on 01/11/23. Patient reports that she was off her insulin for many months but has started taking it again. She reports that her blood sugars have been under much better control -Lantus 12u BID -ISS -Check HgbA1C -Goal blood sugar 110 - 140 (6) Hypertension: Plan: Blood [id number]=[id number]/79 -Amlodipine 5mg po daily (7) Chronic pancreatitis: Plan: Patient with chronic pancreatitis. She does report some upper abdominal pain on occasion. Lipase is WNL. -Continue Creon -Patient on Vitamin D supplementation F/E/N - Saline lock. Electroltyes WNL. CC diet as tolerated Ppx - low risk for DVT Code - Full Dispo -Observation to medical with telemetry History of Present Illness Chief Complaint: chest pain Primary Care Provider: DO Lashawn Galvan is a 63yo female with history of HTN, HLP, DM, Depression and COPD presenting from home with complaint of chest pain. Overall she has had several months of progressive symptoms which have been progressively worsening, rapidly worse in the last two weeks. She has had low grade fever nightly for the last several nights with generalized weakness, fat igue and body aches, joint pain as well as nausea after meals. She is very active and notes a sharp decline in her exercise tolerance and strength. She has also had frequent palpitations over the last month and has an event monitor in place. She feels like she has the flu and her symptoms have been getting worse every day. This afternoon around 18:30 she developed left sided chest pain/pressure - fairly intense. Non-radiating and non-exertional. No history of prior chest pain like this. This prompted her to seek care. [place] and has had countless tick bites in the past. One other concern is that her symptoms may be secondary to her medication Trintellix, which was recently started. She continues to take this as directed by her PCP. In the ER she is afebrile, HD stable, NAD Allergies Allergy/AdvReac Type Severity Reaction Status Date / Time Iodinated Contrast Media AdvReac Intermediate Vomiting Verified 04/07/23 00:50 oxycodone AdvReac Intermediate stomach Verified 04/07/23 00:50 upset pregabalin [From Lyrica] AdvReac Intermediate Agitated Verified 04/07/23 00:50 Home Medications Medication Instructions Recorded Confirmed Type amlodipine 5 mg tablet 5 mg PO QAM 05/20/21 04/07/23 History pantoprazole 40 mg tablet,delayed 40 mg PO DAILY gerd #30 tabs 06/06/21 04/07/23 Rx release (Protonix) cholecalciferol (vitamin D3) 125 125 mcg PO DAILY #30 caps 06/12/22 04/07/23 Rx mcg (5,000 unit) capsule chromium picolinate 400 mcg tablet 400 mcg PO DAILY #30 tabs 06/12/22 04/07/23 Rx estradiol 0.01% (0.1 mg/gram) 1 g vaginal .twice weekly #1 g 06/12/22 04/07/23 Rx vaginal cream atorvastatin 40 mg tablet 40 mg PO DAILY 11/11/22 04/07/23 History blood sugar diagnostic (OneTouch 11/11/22 03/23/23 History Ultra Test strips) [id number] 2 cap PO .As Directed #630 caps 11/20/22 04/07/23 Rx 36,000-114,000-180,000 unit capsule,delay rel (Creon) pen needle, diabetic 32 gauge x #100 ea 11/06/23 01/30/24 Rx 5/32" (BD Ultra-Fine Mily Pen Needle) levothyroxine 50 mcg tablet 50 mcg PO DAILY #30 tabs 03/15/23 04/07/23 Rx insulin aspart 4 - 7 unit subcut TID 03/23/23 04/07/23 History (niacinamide)(U-100) 100 unit/mL(3 mL) subcutaneous pen (Fiasp FlexTouch U-100 Insulin) insulin glargine 100 unit/mL (3 32 unit subcut QAM 03/23/23 04/07/23 History mL) subcutaneous pen (Lantus Solostar U-100 Insulin) blue-green algae (bulk) (Spirulina 1 ea miscellaneous DAILY 04/07/23 04/07/23 History powder) ondansetron HCl 4 mg tablet 4 mg PO .Q4-6H PRN NAUSEA/VOMITING 04/07/23 04/07/23 History psyllium husk 0.52 gram capsule 0.52 g PO DAILY 04/07/23 04/07/23 History vortioxetine 10 mg tablet 10 mg PO QAM 04/07/23 04/07/23 History (Trintellix) Past Med/Surg History Medical History Chronic diarrhea COPD (chronic obstructive pulmonary disease) Hyperlipidemia Hypertension Diabetes Surgical History H/O colonoscopy 08/31/17 H/O shoulder surgery right and left History of arthroplasty of left knee S/P hysterectomy Family History Mother Diabetes Brother Diabetes Other Alzheimer disease Aneurysm Dementia Hypertension Rheumatoid arthritis Social History Smoking Status: Never smoker Tobacco Type: Cigarettes Cigarettes Per Day: had quit and started now for 2 weeks; Second Hand Exposure: No; Do You Dip or Chew Tobacco: No; Hx Alcohol Use: No Hx Substance Use: No Preferred Language: American Communication Ability: Effective 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 Designer Required: No Beliefs That Will Affect Care: None Current Living Situation: Alone 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al status: employed 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 [employer] Feels Safe at Home: Yes Assistive Devices: None Review of Systems Review of Systems: All systems reviewed & are unremarkable except as noted in HPI & below Physical Exam Physical Exam: General: patient resting comfortably, NAD, non-toxic in appearance, AA&O x 4 Skin: warm, dry, intact, no rashes or lesions HEENT: NC/AT, PERRL, EOMI, anicteric sclera, conjunctiva without injection, external ear normal to inspection and nontender, nares patent, moist mucus membranes, dentition intact, no oropharyngeal lesions, neck supple, trachea midline, no LAD, no thyromegaly, no JVD Heart: +S1/S2, regular, no m/r/g Lungs: equal air entry bilaterally, no rales/rhonchi/wheezes Abd: +BS, soft, NT/ND, no masses/organomegaly/ascites Ext: warm, 2+ pulses in UE/LE bilaterally, no clubbing/cyanosis, trace edema of bilateral LE Neuro: nonfocal, patient AA&O x 4, speech intact, no facial droop, moving all extremities on command with equal strength 5/5 Pain with palpation of joints and muscles. Results & Data Results & Data Vital Signs (Past 12 Hours) Vital Signs Temp Pulse Pulse Resp BP BP Pulse Ox 04/07/23 02:00 63 19 129/79 95 04/07/23 00:30 84 18 146/90 H 96 04/07/23 00:30 76 18 96 04/06/23 23:06 98 04/06/23 23:06 36.5 C 87 14 170/109 H 98 O2 Del Method 04/07/23 02:00 Room Air 04/07/23 00:30 04/07/23 00:30 Room Air 04/06/23 23:06 Room Air 04/06/23 23:06 Room Air Laboratory Results Laboratory Results WBC 6.09 K/ul (4.8-10.8) 04/06/23 23:11 RBC 4.63 M/uL (4.20-5.40) 04/06/23 23:11 Hgb 13.9 g/dl (12.0-16.0) 04/06/23 23:11 Hct 42.0 % (37.0-47.0) 04/06/23 23:11 MCV 90.7 fL (80.0-100.0) 04/06/23 23:11 MCH 30.0 pg (25.0-34.0) 04/06/23 23:11 MCHC 33.1 g/dL (32.0-36.0) 04/06/23 23:11 RDW Std Deviation 40.7 fL (36.4-46.3) 04/06/23 23:11 RDW Coeff of Abbi 12.3 % (11.5-14.5) 04/06/23 23:11 Plt Count 237 K/uL (130-400) 04/06/23 23:11 MPV 10.4 fL (9.4-12.4) 04/06/23 23:11 Immature Gran % (Auto) 0.2 % 04/06/23 23:11 Neut % (Auto) 68.4 % 04/06/23 23:11 Lymph % (Auto) 19.7 % 04/06/23 23:11 [place] % (Auto) 8.9 % 04/06/23 23:11 Eos % (Auto) 2.3 % 04/06/23 23:11 Baso % (Auto) 0.5 % 04/06/23 23:11 Neut # (Auto) 4.17 K/uL (1.40-6.50) 04/06/23 23:11 Lymph # (Auto) 1.20 K/uL (1.20-3.40) 04/06/23 23:11 [place] # (Auto) 0.54 K/uL (0.11-0.59) 04/06/23 23:11 Eos # (Auto) 0.14 K/uL (0.00-0.50) 04/06/23 23:11 Baso # (Auto) 0.03 K/uL (0.00-0.20) 04/06/23 23:11 Immature Gran # (Auto) 0.01 K/uL (0.01-0.20) 04/06/23 23:11 Sodium 139 mmol/L (136-145) 04/06/23 23:11 Potassium 3.9 mmol/L (3.5-5.1) 04/06/23 23:11 Chloride 104 mmol/L (98-107) 04/06/23 23:11 Carbon Dioxide 27 mmol/L (21-32) 04/06/23 23:11 Anion Gap 8 (3-11) 04/06/23 23:11 BUN 19 mg/dl (6-23) 04/06/23 23:11 Creatinine 0.69 mg/dl (0.6-1.2) 04/06/23 23:11 Est Cr Clr Drug Dosing 78.8 ml/min 04/06/23 23:11 Est GFR ( Amer) 105.9 ml/min 04/06/23 23:11 Est GFR (Non-Af Amer) 91.4 ml/min 04/06/23 23:11 BUN/Creatinine Ratio 27.5 (10-20) H 04/06/23 23:11 Glucose 108 mg/dl (70-99(Fasting)) H 04/06/23 23:11 Calcium 10.0 mg/dl (8.6-10.3) 04/06/23 23:11 Total Bilirubin 0.6 mg/dl (0.2-1.0) 04/06/23 23:11 AST 30 U/L (13-39) 04/06/23 23:11 ALT 37 U/L (7-52) 04/06/23 23:11 Alkaline Phosphatase 88 U/L (34-104) 04/06/23 23:11 Troponin I High Sens < 2.3 pg/ml (0-14) 04/06/23 23:11 Total Protein 7.0 gm/dl (6.0-8.3) 04/06/23 23:11 Albumin 4.5 gm/dl (3.4-5.0) 04/06/23 23:11 Globulin 2.5 gm/dl (2.5-4.0) 04/06/23 23:11 Albumin/Globulin Ratio 1.8 (0.9-2) 04/06/23 23:11 Lipase 21 U/L (11-82) 04/06/23 23:11 Urine Color Yellow 04/07/23 01:00 Urine Appearance Clear (Clear) 04/07/23 01:00 Urine pH 6.5 (4.5-7.5) 04/07/23 01:00 Ur Specific [place] 1.015 (1.000-1.030) 04/07/23 01:00 Urine Protein Negative (Negative) 04/07/23 01:00 Urine Glucose (UA) Negative (Negative) 04/07/23 01:00 Urine Ketones Negative (Negative) 04/07/23 01:00 Urine Blood Negative (Negative) 04/07/23 01:00 Urine Nitrite Negative (Negative) 04/07/23 01:00 Urine Bilirubin Negative (Negative) 04/07/23 01:00 Urine Urobilinogen Negative (Negative) 04/07/23 01:00 Ur Leukocyte Esterase Negative (Negative) 04/07/23 01:00 Adenovirus (PCR) Not Detected (NotDetected) 04/06/23 23:21 B. pertussis DNA (PCR) Not Detected (NotDetected) 04/06/23 23:21 B.parapertussis DNA PCR Not Detected (NotDetected) 04/06/23 23:21 C. pneumoniae DNA (PCR) Not Detected (NotDetected) 04/06/23 23:21 Coronavirus OC43 (PCR) Not Detected (NotDetected) 04/06/23 23:21 Coronavirus HKU1 (PCR) Not Detected (NotDetected) 04/06/23 23:21 Coronavirus 229E (PCR) Not Detected (NotDetected) 04/06/23 23:21 SARS-CoV-2 (PCR) Not Detected (NotDetected) 04/06/23 23:21 Coronavirus NL63 (PCR) Not Detected (NotDetected) 04/06/23 23:21 Human Metapneumovir PCR Not Detected (NotDetected) 04/06/23 23:21 Influenza Type A (PCR) Not Detected (NotDetected) 04/06/23 23:21 Influenza Type B (PCR) Not Detected (NotDetected) 04/06/23 23:21 M. pneumoniae (PCR) Not Detected (NotDetected) 04/06/23 23:21 Parainfluenza 1 (PCR) Not Detected (NotDetected) 04/06/23 23:21 Parainfluenza 2 (PCR) Not Detected (NotDetected) 04/06/23 23:21 Parainfluenza 3 (PCR) Not Detected (NotDetected) 04/06/23 23:21 Parainfluenza 4 (PCR) Not Detected (NotDetected) 04/06/23 23:21 RSV (PCR) Not Detected (NotDetected) 04/06/23 23:21 Entero/Rhino (PCR) Not Detected (NotDetected) 04/06/23 23:21 Impressions Chest CTA 04/07/23 00:45 Exam(s): CTA CHEST IV Amt: 83 ML OPTIRAY 320 EXAM: CT Angiography Chest With Intravenous Contrast CLINICAL HISTORY: Reason for exam: PE, L sided CP. TECHNIQUE: Axial computed tomographic angiography images of the chest with intravenous contrast. Automated exposure control was utilized for the study. A dose lowering technique was utilized adhering to the principles of ALARA. MIP reconstructed images were created and reviewed. COMPARISON: No relevant prior studies available. FINDINGS: Pulmonary arteries: The pulmonary arterial tree is well opacified with contrast. No pulmonary embolism is identified. Aorta: The thoracic aorta is mildly calcified but nondilated. There is no aneurysm or dissection. Lungs: Trace amount of bibasilar subsegmental atelectasis. No acute infiltrate or consolidation is seen. No pneumothorax or pleural effusion. Pleural space: See above. Heart: The heart is borderline enlarged. Mild to moderate coronary calcification is present. No pericardial effusion. No evidence of RV dysfunction. Bones/joints: Mild to moderate degenerative changes throughout the thoracic spine. No acute fracture or subluxation is seen. Soft tissues: Unremarkable. Lymph nodes: Unremarkable. No enlarged lymph nodes. IMPRESSION: 1. Trace amount of bibasilar subsegmental atelectasis. No acute infiltrate or consolidation is seen. No pneumothorax or pleural effusion. 2. The pulmonary arterial tree is well opacified with contrast. No pulmonary embolism is identified. 3. The thoracic aorta is mildly calcified but nondilated. There is no aneurysm or dissection. 4. The heart is borderline enlarged. Mild to moderate coronary calcification is present. No pericardial effusion. 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; E06.3 Hypothyroidism type: due to Isma's thyroiditis Mixed hyperlipidemia E78.2 Hyperlipidemia type: mixed hyperlipidemia Type 2 diabetes mellitus without complication, without long-term current use of insulin E11.9 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 insulin use: without termite treater use Diabetes mellitus complication status: without complication Essential hypertension I10 Hypertension type: essential hypertension Chronic pancreatitis K86.1 (1) Chest pain Chest pain type: unspecified Qualified Code(s): R07.9 - Chest pain, unspecified (3) Hypothyroidism Hypothyroidism type: due to Isma's thyroiditis Qualified Code(s): E03.8 - Other specified hypothyroidism; E06.3 - Autoimmune thyroiditis (4) Hyperlipidemia Hyperlipidemia type: mixed hyperlipidemia Qualified Code(s): E78.2 - Mixed hyperlipidemia (5) Type 2 diabetes mellitus 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 treater insulin use: without termite treater use Diabetes mellitus complication status: without complication Qualified Code(s): E11.9 - Type 2 diabetes mellitus without complications (6) Hypertension Hypertension type: essential hypertension Qualified Code(s): I10 - Essential (primary) hypertension
[2023-04-07] MEDS: ASPIRIN CHEW 324 MG PO STA (03:29)
[2023-04-07 03:50] LABS: C Reactive Protein < 0.50 mg/dl (0-0.5); Creatine Kinase 53 U/L (26-192)
[2023-04-07 03:58] LABS: Troponin I High Sensitivity 3.6 pg/ml (0-14)
[2023-04-07] MEDS ORDERED: GLUCOSE 40% GEL 15 GM TUBE PO PRN (05:22)
[2023-04-07] MEDS ORDERED: CARBOHYDRATES FOR HYPOGLYCEMIA PO PRN (05:22)
[2023-04-07] MEDS ORDERED: ONDANSETRON INJ 2 MG/ML 2 ML VIAL IV PRN (05:22)
[2023-04-07] MEDS ORDERED: DEXTROSE 50% 50 ML SYRINGE IV PRN (05:22)
[2023-04-07] MEDS ORDERED: GLUCOSE 10 TAB/TUBE PO PRN (05:22)
[2023-04-07] MEDS ORDERED: GLUCAGON FOR INJ 1 MG VIAL SQ PRN (05:22)
[2023-04-07] MEDS ORDERED: ACETAMINOPHEN 325 MG TAB PO PRN (05:22)
[2023-04-07 05:51] LABS: Magnesium 1.6 mg/dl (1.7-2.4); Phosphorus 4.6 mg/dl (2.5-4.9)
[2023-04-07] MEDS ORDERED: PANCREAZE (LIPASE 10,500U) CAP PO PRN (06:01)
[2023-04-07] MEDS: LEVOTHYROXINE SODIUM 50 MCG TABLET PO SCH (06:38)
--- NOTE | 2023-04-07 07:09 | XRay Report ---
SINGLE VIEW CHEST CLINICAL HISTORY: Atypical chest pain. FINDINGS: A PA chest radiograph is compared to chest x-ray and chest CT dated 06/28/2018. The cardiomed iastinal silhouette is top normal for projection. An electronic device projects over the mediastinum. The lungs and pleural spaces are clear. No pneumothorax is seen. The bony thorax is grossly intact. IMPRESSION: No active disease in the chest. ACT 112: Negative or not required by law. Electronically signed by: Thong Veronica M.D. 04/07/2023 7:07 AM
[2023-04-07 07:35] LABS: Estimated Average Glucose 194 mg/dl; Hemoglobin A1C 8.4 % (4.5-5.6)
[2023-04-07 08:07] VITALS: BP 113/69; PULSE 65; RESP 13; O2SAT 97
[2023-04-07] MEDS: MAGNESIUM SULFATE / D5W 1 GM/100 ML BAG IV SCH (08:25)
[2023-04-07] MEDS: INSULIN ASPART PER UNIT CHARGE SC SCH (08:25)
[2023-04-07] MEDS: PANCREAZE (LIPASE 10,500U) CAP PO SCH (10:02)
[2023-04-07] MEDS: ATORVASTATIN 40 MG TAB PO SCH (10:03)
[2023-04-07] MEDS: LANTUS PER UNIT CHARGE SQ SCH (10:03)
[2023-04-07] MEDS: amLODIPine BESYLATE 5 MG TAB PO SCH (10:03)
[2023-04-07] MEDS: PANTOprazole 40 MG TAB PO SCH (10:03)
--- NOTE | 2023-04-07 16:39 | Discharge Summary ---
Date of Service April 07, 2023 Admission HPI Per Admitting Provider Lashawn Agarwal is a 63yo female with history of HTN, HLP, DM, Depression and COPD presenting from home with complaint of chest pain. Overall she has had several months of progressive symptoms which have been p rogressively worsening, rapidly worse in the last two weeks. She has had low grade fever nightly for the last several nights with generalized weakness, fatigue and body aches, joint pain as well as nausea after meals. She is very active and notes a sharp decline in her exercise tolerance and strength. She has also had frequent palpitations over the last month and has an event monitor in place. She feels like she has the flu and her symptoms have been getting worse every day. This afternoon around 18:30 she developed left sided chest pain/pressure - fairly intense. Non-radiating and non-exertional. No history of prior chest pain like this. This prompted her to seek care. [place] and has had countless tick bites in the past. One other concern is that her symptoms may be secondary to her medication Trintellix, which was recently started. She continues to take this as directed by her PCP. In the ER she is afebrile, HD stable, NAD Principal Diagnosis Multiple: See hospital course Discharge Exam in general she is awake and alert pleasant no distress. HEENT normocephalic atraumatic mucous membranes moist. Cardio is regular without rubs murmurs or gallops, lungs are somewhat quiet but clear to auscultation bilaterally no rales rhonchi or wheezes good effort. Maybe the slightest bit of exhalation dysfunction on the left side, but not really enough to collect true somatic dysfunction and the pain is not really reproducible. No epigastric pain no g uarding rebound or rigidity. Discharge Data Allergies Allergy/AdvReac Type Severity Reaction Status Date / Time Iodinated Contrast Media AdvReac Intermediate Vomiting Verified 04/07/23 00:50 oxycodone AdvReac Intermediate stomach Verified 04/07/23 00:50 upset pregabalin [From Lyrica] AdvReac Intermediate Agitated Verified 04/07/23 00:50 Consultations 04/07/23 02:44 ED Decision to Admit Stat Ordered Studies 04/07/23 00:45 CT angio chest PE protocol Stat Hospital Course (1) Chest pain: (2) Fatigue: (3) Hypothyroidism: (4) Hyperlipidemia: (5) Type 2 diabetes mellitus: (6) Hypertension: (7) Chronic pancreatitis: Plan patient with multiple complaints and problemsand trying to group things together, see below: Chest pain the chest pain that brought her in sounds exceedingly consistent with chest wall pain. I was not able to find somatic dysfunction, but this is often the case with ribs 1 over the problem is more transient intercostal spasm. Furthermore, with no pneumonia, PE, aortic dissectionthe "bad and scary" diagnoses that could cause this type of symptomatology appear to be fairly definitively ruled out. Offered reassurance in this regard fatigue: She has had about 4 months of worsening fatiguewith uncontrolled diabetes, we discussed that while she did not have an MT based on EKG and troponins, an anginal equivalent of fatigue certainly would be the diagnosis of exclusion. We discussed staying in house for inpatient stress testing versus a stress as an outpatientshe much preferred going home stress as an outpatient. Started aspirin daily for now. She is already on a statin. Heart rate too low for a beta-blockerparticularly whenever it is empiric coverage pending a stress testwrote orders for nurse navigator to set up stress echo. Assuming the stress test is negative, we discussed that her fatigue could also easily be explained by her recent insomnia, possibly as a side effect to her Trintellix, possibly related to her recent weight gainand likely elements of all 3. She will follow-up with her PCP in this regard. Uncontrolled diabetesmitchell does seem to be showing better control, she is started back on insulin, but much to her dismay she has gained about 30 pounds. We discussed that markedly uncontrolled diabetes essentially might as well be a "malabsorption syndrome" (but 1 that reeks havoc by causing vascular disease, etc.)and now that she is taking insulin, the energy and the food that she is eating is being taken up/stored by her body. We discussed that it sounds like she has some degree of pancreatic insufficiencyand that unfortunately to the best of my knowledge really she would require insulin for the fore seeable/indefinite future, or essentially risk the massive complications of uncontrolled diabetesbut that she could probably mitigate the weight gain and minimize her insulin needs by trying to minimize simple carbohydrates. Chronic pancreatitismitchell notes her stools are more greasy and messy than they were previously, discussed that likely increasing her Creon dose would be of benefit. We discussed actually calculating weight-based dosing or a practical method of escalating her Creon to 3 pills ACand she liked that second approach. Body aches/chillsacutely seems most consistent with a viral illness (or due to exposures, possibly a string of sequential viral illnesses)does not show any evidence of bacterial infection here (chest CT clear, no focal symptoms, CRP less than 0.5; does not show overt evidence of tickborne infection (and noted that she would prefer not to do empiric treatment unless it clearly seemed indicated) (Anaplasma and Babesia peripheral smears were negative) (I believe she noted a negative Lyme screen elsewhere)certainly with the prevalence of tickborne illnesses in the area, if her symptoms persist then empiric treatment certainly could be reasonable. We discussed that seems most consistent with a viral illnessand if that is the case it should essentially self resolve in the near future. We discussed that this particular symptom complex is also the 1 with the broadest differentialreally anything ranging from benign self-limited viral illnesses to other infections to even the earliest manifestations of leukemia and lymphoma (of which I assured her we saw absolutely no evidence)but that working this up further could either be a practical approach of following her closely at her PCPs office and seeing how she feels, with a much more ex tensive workup being launched if she does not show essentially complete resolution over the next 2 weeks or so; versus a broad and extensive workup in the here and dorota opted for the former. We had an extremely lengthy discussion, but I do not believe I discussed with her directly that if she were to continue to have symptoms over the next couple weeks, I would probably treat empirically for tickborne illness before launching into a much more otherwise extensive workup simply due to the prevalence of tickborne illnesses in the area. Kendra notes she is really doing quite well with her depression, and we did discuss that her Trintellix could be part of her fatigue, and sleep issuesgiven that she is on a low-dose seemed reasonable to simply hold it and have her follow closely with her PCP. Total Time Total Time Spent Total Time Spent (In Minutes): Greater than 30 Discharge Plan Discharge Items Patient Disposition: Home - Self-Care Reason For Visit: CHEST PAIN Discharge Diagnosis: chest pain Activity: Per Instructions section Non-emergency contact: Primary Care Provider Call non-emergency contact if: your symptoms worsen, your pain is not controlled and your temperature is above 101 Follow-up/Referrals: Peter Angulo, [Primary Care Provider] - Diet: Carb Consistent or DM2 Addtl Attending Provider Instructions: You were seen in the hospital for evaluation of chest pressure and flu like symptoms. Though non-diagnostic, your results were all very reassuring. There were no signs of heart attack or pulmonary embolism (blood clot in your lungs). Your lab work was all reassuring as well. Your tickborne illness panel is still pending. I would recommend further workup outpatient with a stress echocardiogram. I would also start you on a daily baby aspirin every day. It sounds like your pancreatic insufficiency has gotten worse so we will inc rease your Creon to 3 tabs with each meal. We did discuss the possibility of further workup inpatient, but with shared decision making we decided on outpatient management with close follow up. If you are unable to see Dr. Angulo in a timely manner feel free to reach out to the [facility] office at [phone] to schedule an appointment. A discharge summary will be sent to your primary care physician to ensure continuity of care. Please bring this discharge summary with you to your next office appointment so that your provider can review it at that time. Follow-up appointments: Make a follow-up appointment with your PCP within the next week. It is very important that you follow up with them shortly after discharge from the hospital. If you are unable Keep all your follow-up appointments as already scheduled. If you cannot make an appointment, notify your provider. Medications: Your medication list has been reviewed and reconciled upon discharge to ensure accuracy and continuity of care. An updated list of all your medications is included with your hospital discharge paperwork. Please review this list closely, and make note of any changes. Stop: Creon 2 tabs Start: aspirin 81 mg every day increase Creon to 3 tabs Take your medications as instructed; do not skip a dose of your medicines. Make sure all of your doctors know every medicine you are taking (including [id number] medicines, vitamins, and supplements). Call your primary care provider before taking any new medicines (including over- the- counter medicines, vitamins, and supplements), because some of these may interact with your current medications, or may make your symptoms worse. Tell your primary care provider if you cannot afford your medications. CALL 911 OR GO TO THE EMERGENCY DEPARTMENT if you experience any of the following: Sudden, severe abdominal pain or nausea/vomiting Severe chest pain, or chest pain that radiates (moves) to your jaw or arm Sudden, severe shortness of breath or difficulty breathing Thank you for allowing us to participate in your care Pending Studies at Discharge: Yes Studies:: tick borne illnesses Stand-Alone Forms: [facility], Smoking Cessation Medications and DC Order Prescriptions: New aspirin 81 mg capsule 81 mg PO DAILY Qty: 30 0RF Continued (DME) pen needle, diabetic [BD Ultra-Fine Mily Pen Needle] 32 gauge x 5/32" needle See Rx Instructions .Route Qty: 100 0RF Rx Instructions: use with Lantus injection levothyroxine 50 mcg tablet 50 mcg PO DAILY Qty: 30 2RF pantoprazole [Protonix] 40 mg tablet,delayed release (DR/EC) 40 mg PO DAILY Qty: 30 11RF cholecalciferol (vitamin D3) 125 mcg (5,000 unit) capsule 125 mcg PO DAILY Qty: 30 0RF chromium picolinate 400 mcg tablet 400 mcg PO DAILY Qty: 30 0RF estradiol 0.01 % (0.1 mg/gram) cream 1 g vaginal .twice weekly Qty: 1 0RF Rx Instructions: ON HOLD atorvastatin 40 mg tablet 40 mg PO DAILY (DME) OneTouch Ultra Test Strip See Rx Instructions .Route Rx Instructions: As directed Fiasp FlexTouch U-100 Insulin 100 unit/mL (3 mL) insulin pen 4 - 7 unit subcut TID insulin glargine [Lantus Solostar U-100 Insulin] 100 unit/mL (3 mL) insulin pen 32 unit subcut QAM amlodipine 5 mg tablet 5 mg PO QAM ondansetron HCl 4 mg tablet 4 mg PO .Q4-6H PRN (Reason: NAUSEA/VOMITING) psyllium husk 0.52 gram Capsule 0.52 g PO DAILY Spirulina Powder 1 ea MISCELLANEOUS DAILY Rx Instructions: DOSE 500 MG DAILY Changed Creon 36,000-114,000- 180,000 unit capsule,delayed release(DR/EC) 3 cap PO .As Directed Qty: 630 3RF Rx Instructions: Take2 capsules with each meal and 1 capsule with each snack. Discontinued Trintellix 10 mg tablet 10 mg PO QAM Discharge Orders: Discharge Order (Routine); Ordered 04/07/23 Ordered By: Magalie Garcia/Other Patient Handouts: Hypoglycemia (Low Blood Sugar), Managing Type 2 Diabetes, Special Foot Care for Diabetes Admission Data Admit Date/Time: 04/07/23 03:23 Attending Provider: Ishan Chavarria Admit Provider: Cecille Velazquez Primary Care Provider: Peter Angulo Other Providers: Cecille Velazquez Other Interventions: Discharge Summary Assessment (RN) Last Done: 04/07/23 11:19 Coding Level of Care Code 66951 INP/OBS DISCH >30 MIN Diagnoses Chest pain R07.9 Chest pain type: unspecified Fatigue R53.83 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
--- NOTE | 2023-04-08 05:38 | Electrocardiogram Report ---
Test Reason : Blood Pressure : / mmHG Vent. Rate : 088 BPM Atrial Rate : 088 BPM P-R Int : 158 ms QRS Dur : 078 ms QT Int : 372 ms P-R-T Axes : 072 039 061 degrees QTc Int : 450 ms Normal sinus rhythm Cannot rule out Anterior infarct , age undetermined Abnormal ECG When compared with ECG of 28-JUN-2018 10:58, Minimal criteria for Anterior infarct are now Present Confirmed by Ronald Anderson ([id number]) on 04/08/2023 5:38:13 AM Referred By: REFERRED SELF Confirmed By:Ronald Anderson
[2023-04-09 21:47] LABS: Babesia microti DNA Not Detected (Not Detected)
== END 2023-04-07 11:24 | disposition home or self-care (01) ==
LOC: ED 23:04 → EDINP 23:04 → SUATTDRO 04-07 03:23 → EDINP 04-07 05:23
DX: Z79.890 Hormone replacement therapy; E03.8 Other specified hypothyroidism; M25.50 Pain in unspecified joint; R53.83 Other fatigue; Z79.4 Long term (current) use of insulin; J44.9 Chronic obstructive pulmonary disease, unspecified; F32.A Depression, unspecified; Z20.822 Contact with and (suspected) exposure to COVID-19; I10 Essential (primary) hypertension; Z88.5 Allergy status to narcotic agent; Z87.891 Personal history of nicotine dependence; Z91.041 Radiographic dye allergy status; Z83.3 Family history of diabetes mellitus; R94.31 Abnormal electrocardiogram [ECG] [EKG]; K86.1 Other chronic pancreatitis; E06.3 Autoimmune thyroiditis; E11.9 Type 2 diabetes mellitus without complications; Z88.8 Allergy status to other drugs, medicaments and biological substances; R53.1 Weakness; M79.10 Myalgia, unspecified site; E78.2 Mixed hyperlipidemia; R07.9 Chest pain, unspecified; I25.10 Atherosclerotic heart disease of native coronary artery without angina pectoris; Z79.899 Other long term (current) drug therapy; J98.11 Atelectasis